=== PATIENT | female | born 1955 | race Caucasian/White ===

== ENCOUNTER 2019-09-18 03:52 | Emergency (ER) | payer BC, OTHER ==
--- NOTE | 2019-09-18 04:37 | EDPHYS ---
Physician Documentation [facility] Name: Jade Pride Age: 64 yrs Sex: Female : 1955 Arrival Date: 09/18/2019 Time: 03:55 Bed 7 Private MD: ED Physician Jermaine Chavarria HPI: 09/18 05:41 This 64 yrs old Female presents to ER via Ambulatory with complaints of Back kdr Pain. 05:41 The patient presents with pain that is chronic. The symptoms are located in the Left kdr infrascapular region. Onset: The symptoms/episode began/occurred gradually, 6 month(s) ago. The pain does not radiate. Associated signs and symptoms: Pertinent positives: nausea, Pertinent negatives: abdominal pain, chest pain, constipation, dysuria, fever, headache, hematuria, incontinence, numbness, tingling, urinary retention, vomiting, weakness. The problem was sustained from unknown cause. Modifying factors: The patient symptoms are alleviated by nothing, the patient symptoms are aggravated by coughing. Severity of symptoms: At their worst the symptoms were mild, moderate, in the emergency department the symptoms have improved, mildly. The patient has not experienced similar symptoms in the past. The patient has been recently seen by a physician: The patient had a CT last month for the same problem with Rasta Sandoval (reviewed and copy given to the patient). Historical: - Allergies: 04:09 Tetracycline (Blisters in Mouth); aa1 - Home Meds: 04:09 None [Active]; aa1 - PMHx: 04:09 None; aa1 - PSHx: 04:09 Tubal ligation; aa1 - Immunization history:: Flu vaccine is up to date. - Coronavirus screen:: The patient has NOT traveled to [place], [place], or [place] in the past 14 days. Proceed with normal triage process as indicated. - Social history:: Smoking status: Patient/guardian denies using tobacco, but has a distant history of tobacco abuse. - Ebola Screening: : No symptoms or risks identified at this time. ROS: 05:57 Constitutional: Negative for fever, chills, and weight loss, Eyes: Negative for injury, kdr pain, redness, and discharge, Neck: Negative for injury, pain, and swelling, Cardiovascular: Negative for chest pain, palpitations, and edema, Respiratory: Negative for shortness of breath, cough, wheezing, and pleuritic chest pain, Abdomen/GI: Negative for abdominal pain, nausea, vomiting, diarrhea, and constipation, : Negative for injury, bleeding, discharge, and swelling, MS/Extremity: Negative for injury and deformity, Skin: Negative for injury, rash, and discoloration, Neuro: Negative for headache, weakness, numbness, tingling, and seizure activity. Psych: Negative for depression, anxiety, suicide ideation, homicidal ideation, and hallucinations, Allergy/Immunology: Negative for hives, rash, and allergies, Endocrine: Negative for neck swelling, polydipsia, polyuria, polyphagia, and marked weight changes, Hematologic/Lymphatic: Negative for swollen nodes, abnormal bleeding, and unusual bruising. 05:57 Back: Positive for pain at rest, pain with movement, Negative for injury or acute deformity. Exam: 05:57 Constitutional: This is a well developed, well nourished patient who is awake, alert, kdr and in no acute distress. Head/Face: Normocephalic, atraumatic. Eyes: Pupils equal round and reactive to light, extra-ocular motions intact. Lids and lashes normal. Conjunctiva and sclera are non-icteric and not injected. Cornea within normal limits. Periorbital areas with no swelling, redness, or edema. Neck: Trachea midline, no thyromegaly or masses palpated, and no cervical lymphadenopathy. Supple, full range of motion without nuchal rigidity, or vertebral point tenderness. No Meningismus. Chest/axilla: Normal chest wall appearance and motion. Nontender with no deformity. No lesions are appreciated. Cardiovascular: Regular rate and rhythm with a normal S1 and S2. No gallops, murmurs, or rubs. Normal PMI, no JVD. No pulse deficits. Respiratory: Lungs have equal breath sounds bilaterally, clear to auscultation and percussion. No rales, rhonchi or wheezes noted. No increased work of breathing, no retractions or nasal flaring. Abdomen/GI: Soft, non-tender, with normal bowel sounds. No distension or tympany. No guarding or rebound. No evidence of tenderness throughout. Skin: Warm, dry with normal turgor. Normal color with no rashes, no lesions, and no evidence of cellulitis. MS/ Extremity: Pulses equal, no cyanosis. Neurovascular intact. Full, normal range of motion. Neuro: Awake and alert, GCS 15, oriented to person, place, time, and situation. Cranial nerves II-XII grossly intact. Motor strength 5/5 in all extremities. Sensory grossly intact. Cerebellar exam normal. Normal gait. Psych: Awake, alert, with orientation to person, place and time. Behavior, mood, and affect are within normal limits. 05:57 Back: pain, that is mild, of the left subscapular area, normal spinal alignment noted, CVA tenderness, is absent, vertebral tenderness, is not appreciated. Vital Signs: 04:09 BP 175 / 77; Pulse 61; Resp 16; Temp 98.8; Pulse Ox 99% on R/A; Weight 108.86 kg; aa1 Height 5 ft. 5 in. (165.10 cm); Pain 9/10; 05:02 BP 146 / 97; Pulse 63; Resp 16; Pulse Ox 98% on R/A; Pain 7/10; aa1 04:09 Body Mass Index 39.94 (108.86 kg, 165.10 cm) aa1 MDM: 04:36 Patient medically screened. kdr 05:57 Data reviewed: vital signs, nurses notes, old medical records, radiologic studies. kdr Counseling: I had a detailed discussion with the patient and/or guardian regarding: the historical points, exam findings, and any diagnostic results supporting the discharge/admit diagnosis, lab results, the need for outpatient follow up. 09/18 04:23 Order name: EKG; Complete Time: 04:24 aa09/18 04:23 Order name: EKG - Nurse/Tech; Complete Time: 04:23 aa1 EC:01 Rate is 59 beats/min. Rhythm is regular, Sinus bradycardia with No ectopy. QRS Almo is kdr Normal. ND interval is normal. QRS interval is normal. Clinical impression: NSR w/ Non-specific ST/T Changes. Administered Medications: 04:55 Drug: Tylenol-Codeine #3 (300 mg - 30 mg) 2 tabs Route: PO; aa1 05:01 Follow up: Response: Medication administered at discharge. aa1 04:55 Drug: Robaxin 750 mg Route: PO; aa1 05:01 Follow up: Response: Medication administered at discharge. aa1 04:55 Drug: Robaxin 750 mg Route: PO; aa1 Disposition: 09/18/19 04:36 Discharged to Home. Impression: Posterior, infrascapular thorax pain. - Condition is Stable. - Discharge Instructions: Back Pain, Adult, [id number]. - Prescriptions for Robaxin 500 mg Oral Tablet - take 2 tablet by ORAL route every 6 hours As needed; 40 tablet. Tramadol 50 mg Oral Tablet - take 1 tablet by ORAL route every 8 hours as needed; 12 tablet. Medrol (Jarrell) 4 mg Oral Tablets, Dose Pack - take 1 tablet by ORAL route as directed - follow package instructions; 1 packet. - Medication Reconciliation Form, Thank You Letter, Prescription Opioid Use form. - Follow up: Private Physician; When: 2 - 3 days; Reason: If symptoms return, Further diagnostic work-up, Recheck today's complaints, Continuance of care, Re-evaluation by your physician. - Problem is an ongoing problem. - Symptoms are unchanged. Signatures: Conchis Hughes RN RN aa1 Jermaine Chavarria MD MD [facility] Corrections: (The following items were deleted from the chart) 05:03 04:36 09/18/2019 04:36 Discharged to Home. Impression: Posterior, infrascapular thorax aa1 pain. Condition is Stable. Forms are Medication Reconciliation Form, Thank You Letter, Antibiotic Education, Prescription Opioid Use. Follow up: Private Physician; When: 2 - 3 days; Reason: If symptoms return, Further diagnostic work-up, Recheck today's complaints, Continuance of care, Re-evaluation by your physician. Problem is an ongoing problem. Symptoms are unchanged. kdr
--- NOTE | 2019-09-18 04:37 | ER ---
Nurse's Notes [facility] Name: Jade Pride Age: 64 yrs Sex: Female : 1955 Arrival Date: 09/18/2019 Time: 03:55 Bed 7 Private MD: Diagnosis: Posterior, infrascapular thorax pain Presentation: 09/18 04:06 Presenting complaint: Patient states: she has been having mid back pain continuously aa1 for the past 6 months and over the past few weeks it has gotten worse and it has been causing her to have trouble sleeping. States she was concerned because she went to a friend's house a couple days ago and he told her that he was having back pain in the same place that she is and he ended up having bypass surgery. Reports she had an MRI done for her back pain last month and she was told everything was normal. Transition of care: patient was not received from another setting of care. Onset of symptoms was February 2019. Risk Assessment: Do you want to hurt yourself or someone else? Patient reports no desire to harm self or others. Initial Sepsis Screen: Does the patient meet any 2 criteria? No. Patient's initial sepsis screen is negative. Does the patient have a suspected source of infection? No. Patient's initial sepsis screen is negative. Care prior to arrival: None. 04:06 Method Of Arrival: Ambulatory aa1 04:06 Acuity: DANIEL 3 aa1 Historical: - Allergies: 04:09 Tetracycline (Blisters in Mouth); aa1 - Home Meds: 04:09 None [Active]; aa1 - PMHx: 04:09 None; aa1 - PSHx: 04:09 Tubal ligation; aa1 - Immunization history:: Flu vaccine is up to date. - Coronavirus screen:: The patient has NOT traveled to [place], [place], or [place] in the past 14 days. Proceed with normal triage process as indicated. - Social history:: Smoking status: Patient/guardian denies using tobacco, but has a distant history of tobacco abuse. - Ebola Screening: : No symptoms or risks identified at this time. Screenin:10 Abuse screen: Denies threats or abuse. Denies injuries from another. Nutritional aa1 screening: No deficits noted. Tuberculosis screening: No symptoms or risk factors identified. Fall Risk None identified. Assessment: 04:10 General: Appears in no apparent distress. comfortable, Behavior is calm, cooperative, aa1 appropriate for age. Pain: Complains of pain in left mid back Pain does not radiate. Pain currently is 9 out of 10 on a pain scale. Pain began 6 months ago Is continuous. Neuro: Level of Consciousness is awake, alert, obeys commands, Oriented to person, place, time, situation, Moves all extremities. Full function Gait is steady. Cardiovascular: Denies chest pain, diaphoresis, nausea, palpitations, shortness of breath. Respiratory: Airway is patent Respiratory effort is even, unlabored, Respiratory pattern is regular, symmetrical. GI: No signs and/or symptoms were reported involving the gastrointestinal system. : No signs and/or symptoms were reported regarding the genitourinary system. EENT: No signs and/or symptoms were reported regarding the EENT system. Derm: Skin is intact, is healthy with good turgor, Skin is pink, warm \T\ dry. Musculoskeletal: Circulation, motion, and sensation intact. Capillary refill < 3 seconds, Range of motion: intact in all extremities. 05:02 Reassessment: Patient appears in no apparent distress at this time. Patient is alert, aa1 oriented x 3, equal unlabored respirations, skin warm/dry/pink. Discussed d/c \T\ f/u instructions with pt \T\ spouse; denies questions or concerns at this time. Ambulatory to lobby with steady gait. Vital Signs: 04:09 BP 175 / 77; Pulse 61; Resp 16; Temp 98.8; Pulse Ox 99% on R/A; Weight 108.86 kg; aa1 Height 5 ft. 5 in. (165.10 cm); Pain 9/10; 05:02 BP 146 / 97; Pulse 63; Resp 16; Pulse Ox 98% on R/A; Pain 7/10; aa1 04:09 Body Mass Index 39.94 (108.86 kg, 165.10 cm) aa1 ED Course: 03:55 Patient arrived in ED. cl3 04:01 Jermaine Chavarria MD is Attending Physician. kdr 04:06 Conchis Hughes RN is Primary Nurse. aa1 04:09 Triage completed. aa1 04:09 Arm band placed on right wrist. aa1 04:10 Patient has correct armband on for positive identification. Bed in low position. Call aa1 light in reach. Pulse ox on. NIBP on. 04:20 EKG done, by ED staff, reviewed by Jermaine Chavarria MD. aa1 05:02 No provider procedures requiring assistance completed. Patient did not have IV access aa1 during this emergency room visit. Administered Medications: 04:55 Drug: Tylenol-Codeine #3 (300 mg - 30 mg) 2 tabs Route: PO; aa1 05:01 Follow up: Response: Medication administered at discharge. aa1 04:55 Drug: Robaxin 750 mg Route: PO; aa1 05:01 Follow up: Response: Medication administered at discharge. aa1 04:55 Drug: Robaxin 750 mg Route: PO; aa1 Outcome: 04:36 Discharge ordered by . kdr 05:02 Discharged to home ambulatory, with significant other. aa1 05:02 Condition: good 05:02 Discharge instructions given to patient, significant other, Instructed on discharge instructions, follow up and referral plans. medication usage, Demonstrated understanding of instructions, follow-up care, medications, Prescriptions given X 3. 05:03 Patient left the ED. aa1 Signatures: Conchis Hughes, RN RN aa1 Jermaine Chavarria MD MD kdr Miguel Robertson cl3
[2019-09-18 05:11] VITALS: TEMP 98.8
[2019-09-18 05:12] VITALS: BP 146/97; O2SAT 98
--- NOTE | 2019-09-19 07:50 | EKG ---
Test Date: 2019-09-18 Test Time: 04:22:24 Cloth Mercerizer Back Tender: JOSSELIN MEASUREMENT RESULTS: Intervals: Rate: 59 FL: 142 QRSD: 78 QT: 440 QTc: 435 Eckerman: P: 37 FL: 142 QRS: 12 T: 22 INTERPRETIVE STATEMENTS: Sinus bradycardia Otherwise normal ECG Compared to ECG 10/20/2016 05:27:06 No significant changes Electronically Signed On 09-19-19 07:49:42 THEOLOGY PROFESSOR by Sinan Tovar
== END 2019-09-18 05:03 | disposition home or self-care (01) ==
LOC: ER 03:52
DX: M54.6 Pain in thoracic spine (principal); Z88.3 Allergy status to other anti-infective agents
CPT/HCPCS: 93005; 99284

== ENCOUNTER 2019-12-29 22:31 | Emergency (ER) | payer BC ==
[2019-12-30 00:35] LABS: Urine Blood 3+ (NEG); Urine Glucose NEGATIVE (NEG); Urine Protein 2+ (NEG); Urine Specific Gravity >1.030 (1.005-1.030)
[2019-12-30 00:43] LABS: Urine Bacteria <20 /HPF (<20); Urine RBC >50 /HPF (NONE SEEN)
[2019-12-30 00:44] LABS: Urine Culture Reflex Order NOT NEEDED
[2019-12-30 01:30] LABS: Hematocrit 45.8 % (36.0-45.0); Lymphocytes % 9.6 % (15.3-44.8); MPV 7.8 fL (7.6-11.3); RBC Red Blood Cell Count 5.14 M/uL (3.86-4.86)
[2019-12-30 01:50] LABS: Albumin 3.8 g/dL (3.4-5.0); Bilirubin Direct 0.1 mg/dL (0-0.2); Bilirubin Total 0.5 mg/dL (0.2-1.0); Protein, Total 7.6 g/dL (6.4-8.2)
--- NOTE | 2019-12-30 05:27 | EDPHYS ---
Physician Documentation [facility] Name: Jade Pride Age: 64 yrs Sex: Female : 1955 Arrival Date: 12/29/2019 Time: 22:33 Bed 17 Private MD: ED Physician Alexys Aguilera HPI: 12/29 02:58 This 64 yrs old Female presents to ER via Ambulatory with complaints of mh7 Abdominal Pain,. Historical: - Allergies: 12/28 23:02 Tetracycline (Blisters in Mouth); ao - Home Meds: 23:02 aspirin 325 mg Oral tab 1 tab as needed for Pain [Active]; ao - PMHx: 23:02 Back pain; ao - PSHx: 23:02 Tubal ligation; ao - Immunization history:: Adult Immunizations up to date. - Social history:: Smoking status: Patient denies any tobacco usage or history of. Patient/guardian denies using alcohol, street drugs. ROS: 12/29 02:59 Constitutional: Negative for fever, chills, and weight loss, Eyes: Negative for injury, mh7 pain, redness, and discharge, ENT: Negative for injury, pain, and discharge, Neck: Negative for injury, pain, and swelling, Cardiovascular: Negative for chest pain, palpitations, and edema, Respiratory: Negative for shortness of breath, cough, wheezing, and pleuritic chest pain. : Negative for injury, bleeding, discharge, and swelling, MS/Extremity: Negative for injury and deformity, Skin: Negative for injury, rash, and discoloration, Neuro: Negative for headache, weakness, numbness, tingling, and seizure, Psych: Negative for depression, anxiety, suicide ideation, homicidal ideation, and hallucinations, Allergy/Immunology: Negative for hives, rash, and allergies, Endocrine: Negative for neck swelling, polydipsia, polyuria, polyphagia, and marked weight changes, Hematologic/Lymphatic: Negative for swollen nodes, abnormal bleeding, and unusual bruising. Exam: 02:59 Constitutional: This is a well developed, well nourished patient who is awake, alert, mh7 and in no acute distress. Head/Face: Normocephalic, atraumatic. Eyes: Pupils equal round and reactive to light, extra-ocular motions intact. Lids and lashes normal. Conjunctiva and sclera are non-icteric and not injected. Cornea within normal limits. Periorbital areas with no swelling, redness, or edema. ENT: Nares patent. No nasal discharge, no septal abnormalities noted. Tympanic membranes are normal and external auditory canals are clear. Oropharynx with no redness, swelling, or masses, exudates, or evidence of obstruction, uvula midline. Mucous membranes moist. Neck: Trachea midline, no thyromegaly or masses palpated, and no cervical lymphadenopathy. Supple, full range of motion without nuchal rigidity, or vertebral point tenderness. No Meningismus. Chest/axilla: Normal chest wall appearance and motion. Nontender with no deformity. No lesions are appreciated. Cardiovascular: Regular rate and rhythm with a normal S1 and S2. No gallops, murmurs, or rubs. Normal PMI, no JVD. No pulse deficits. Respiratory: Lungs have equal breath sounds bilaterally, clear to auscultation and percussion. No rales, rhonchi or wheezes noted. No increased work of breathing, no retractions or nasal flaring. 02:59 Skin: Warm, dry with normal turgor. Normal color with no rashes, no lesions, and no evidence of cellulitis. MS/ Extremity: Pulses equal, no cyanosis. Neurovascular intact. Full, normal range of motion. Neuro: Awake and alert, GCS 15, oriented to person, place, time, and situation. Cranial nerves II-XII grossly intact. Motor strength 5/5 in all extremities. Sensory grossly intact. Cerebellar exam normal. Normal gait. Psych: Awake, alert, with orientation to person, place and time. Behavior, mood, and affect are within normal limits. 02:59 Abdomen/GI: Inspection: abdomen appears normal, Bowel sounds: normal, in all quadrants, Palpation: moderate abdominal tenderness, in the epigastric area, right upper quadrant and left upper quadrant, Rectal exam: the exam is deferred, because of patient request, Indicators: McBurney's point is not tender, Benton's sign is negative, Rovsing's sign is negative, Obturator sign is negative, Psoas sign is negative, Liver: no appreciated palpable abnormalities, Hernia: not appreciated. 02:59 Back: pain, that is mild, ROM is normal, normal spinal alignment noted, CVA tenderness, is absent, vertebral tenderness, is not appreciated, muscle spasm, is not present, Straight leg raises: right lower extremity does not illicit pain, left lower extremity does not illicit pain. 06:54 ECG was reviewed by the Attending Physician. [facility] Vital Signs: 12/28 22:57 BP 153 / 94; Pulse 67; Resp 18; Temp 98.5(O); Pulse Ox 100% on R/A; Weight 154.22 kg; ao Height 5 ft. 5 in. (165.10 cm); Pain 05/27; 12/29 02:00 BP 137 / 84; Pulse 78; Resp 16; Pulse Ox 98% on R/A; jb4 02:57 BP 152 / 74; Pulse 65; Resp 16; Pulse Ox 100% on R/A; jb4 03:50 BP 135 / 76; Pulse 67; Resp 16; Pulse Ox 100% on R/A; jb4 04:45 BP 137 / 64; Pulse 71; Resp 16; Pulse Ox 98% on R/A; jb4 12/28 22:57 Body Mass Index 56.58 (154.22 kg, 165.10 cm) ao MDM: 00:37 Patient medically screened. [facility] 05:22 Differential diagnosis: bowel obstruction, cholecystitis, Cholelithiasis, [facility] diverticulitis, non-specific abd pain, pancreatitis, Peptic Ulcer Disease, Ureterolithiasis, urinary tract infection. Data reviewed: vital signs, nurses notes, lab test result(s), EKG, radiologic studies, CT scan. Data interpreted: Pulse oximetry: on room air is 98 %. Interpretation: normal. 06:54 Counseling: I had a detailed discussion with the patient and/or guardian regarding: the [facility] historical points, exam findings, and any diagnostic results supporting the discharge/admit diagnosis, lab results, radiology results, the need for outpatient follow up. 06:54 Response to treatment: the patient's symptoms have resolved after treatment, the [facility] patient's blood pressure is in an acceptable range, mental status has returned to baseline, the patient no longer shows bradycardia, the patient is not short of breath, the patient is not tachycardic, the patient's pain is gone, the patient's temperature has normalized. Special discussion: Based on the patient's Hx, exam, and Dx evaluation, there is no indication for emergent surgery or inpatient Tx. It is understood by the patient/guardian that if the Sx's persist or worsen they need to return immediately for re-evaluation. ED course: Feels better, NAD, VSS, no focal neurological deficits. Discussed all test results and findings with the patient and answered all of her questions. She will follow up with her PCP in the next 1-2 days. Explained to return to the ED if worsening of symptoms or other concerns.. 12/28 22:58 Order name: Urine Culture [facility] 12/28 22:58 Order name: Urine Microscopic Only [facility] 12/29 00:17 Order name: Urine Dipstick--Ancillary (enter results) [facility] 12/29 00:53 Order name: Basic Metabolic Panel [facility] 12/29 00:53 Order name: CBC with Diff [facility] 12/29 00:53 Order name: Hepatic Function [facility] 12/28 22:58 Order name: Urine Dipstick-Ancillary (obtain specimen); Complete Time: 00:32 [facility] 12/29 00:53 Order name: Lipase [facility] 12/29 00:53 Order name: IV Saline Lock; Complete Time: 02:02 [facility] 12/29 00:53 Order name: Labs collected and sent; Complete Time: 02:02 [facility] 12/29 00:53 Order name: EKG - Nurse/Tech; Complete Time: 02:00 [facility] 12/29 00:53 Order name: CT Abd/Pelvis - IV Contrast Only [facility] EC:54 Rate is 69 beats/min. Rhythm is regular. QRS Xenia is Normal. TX interval is normal. QRS 7 interval is normal. QT interval is normal. No Q waves. T waves are Normal. No ST changes noted. Clinical impression: Normal ECG. Administered Medications: No medications were administered Disposition: 06:54 Co-signature as Attending Physician, Alexys Aguilera MD. [facility] Disposition: 12/30/19 05:25 Discharged to Home. Impression: Upper abdominal pain, unspecified, Malignant neoplasm of right kidney, except renal pelvis. - Condition is Stable. - Discharge Instructions: Abdominal Pain, Adult, Renal Mass. - Medication Reconciliation Form, Thank You Letter, Antibiotic Education, Prescription Opioid Use form. - Follow up: Private Physician; When: 1 - 2 days; Reason: Worsening of condition, Further diagnostic work-up, Re-evaluation by your physician. - Problem is an acute exacerbation. - Symptoms have improved. Signatures: Dispatcher [employer] EDDanielle Valiente, SPEECH AND LANGUAGE SPECIALIST-C SPEECH AND LANGUAGE SPECIALIST-Csnw Ambrocio Matthew, RN RN Simone Francois RN RN jb4 Alexys Aguilera MD MD mh7 Corrections: (The following items were deleted from the chart) 05:59 05:25 12/30/2019 05:25 Discharged to Home. Impression: Upper abdominal pain, jb4 unspecified; Malignant neoplasm of right kidney, except renal pelvis. Condition is Stable. Forms are Medication Reconciliation Form, Thank You Letter, Antibiotic Education, Prescription Opioid Use. Follow up: Private Physician; When: 1 - 2 days; Reason: Worsening of condition, Further diagnostic work-up, Re-evaluation by your physician. Problem is an acute exacerbation. Symptoms have improved. mh7
--- NOTE | 2019-12-30 05:27 | ER ---
Nurse's Notes [facility] Name: Jade Pride Age: 64 yrs Sex: Female : 1955 Arrival Date: 12/29/2019 Time: 22:33 Bed 17 Private MD: Diagnosis: Upper abdominal pain, unspecified;Malignant neoplasm of right kidney, except renal pelvis Presentation: 12/28 22:57 Chief complaint: Patient states: Abdominal pain that started about 1730. Pt was eating ao pizza and then the pain started. Pt also c/o of back pain that has for few moths. Coronavirus screen: Proceed with normal triage. Ebola Screen: Patient negative for fever greater than or equal to 101.5 degrees Fahrenheit, and additional compatible Ebola Virus Disease symptoms Patient denies exposure to infectious person. Patient denies travel to an Ebola-affected area in the 21 days before illness onset. Initial Sepsis Screen: Does the patient meet any 2 criteria? No. Patient's initial sepsis screen is negative. Does the patient have a suspected source of infection? No. Patient's initial sepsis screen is negative. Risk Assessment: Do you want to hurt yourself or someone else? Patient reports no desire to harm self or others. Onset of symptoms is unknown. 22:57 Method Of Arrival: Ambulatory ao 22:57 Acuity: DANIEL 3 ao Historical: - Allergies: 23:02 Tetracycline (Blisters in Mouth); ao - Home Meds: 23:02 aspirin 325 mg Oral tab 1 tab as needed for Pain [Active]; ao - PMHx: 23:02 Back pain; ao - PSHx: 23:02 Tubal ligation; ao - Immunization history:: Adult Immunizations up to date. - Social history:: Smoking status: Patient denies any tobacco usage or history of. Patient/guardian denies using alcohol, street drugs. Screenin/14 00:30 Abuse screen: Denies threats or abuse. Nutritional screening: No deficits noted. jb4 Tuberculosis screening: No symptoms or risk factors identified. Fall Risk None identified. Assessment: 00:30 General: Appears in no apparent distress. uncomfortable, Behavior is calm, cooperative, jb4 appropriate for age. Pain: Complains of pain in back and abdomen Pain does not radiate. Pain currently is 7 out of 10 on a pain scale. Neuro: Level of Consciousness is awake, alert, obeys commands, Oriented to person, place, time, situation. Cardiovascular: Patient's skin is warm and dry. Respiratory: Airway is patent Respiratory effort is even, unlabored, Respiratory pattern is regular, symmetrical. GI: Abdomen is round non-distended, Bowel sounds present X 4 quads. Abd is soft and non tender X 4 quads. : No signs and/or symptoms were reported regarding the genitourinary system. EENT: No signs and/or symptoms were reported regarding the EENT system. Derm: Skin is intact, Skin is pink, warm \T\ dry. Musculoskeletal: Circulation, motion, and sensation intact. Range of motion: intact in all extremities. 02:00 Reassessment: Patient appears in no apparent distress at this time. Patient and/or jb4 family updated on plan of care and expected duration. Pain level reassessed. Patient is alert, oriented x 3, equal unlabored respirations, skin warm/dry/pink. Pt to CT. 02:57 Reassessment: Patient appears in no apparent distress at this time. Patient and/or jb4 family updated on plan of care and expected duration. Pain level reassessed. Patient is alert, oriented x 3, equal unlabored respirations, skin warm/dry/pink. 04:00 Reassessment: Patient appears in no apparent distress at this time. No changes from jb4 previously documented assessment. Patient and/or family updated on plan of care and expected duration. Pain level reassessed. 05:00 Reassessment: Patient appears in no apparent distress at this time. Patient and/or jb4 family updated on plan of care and expected duration. Pain level reassessed. Patient is alert, oriented x 3, equal unlabored respirations, skin warm/dry/pink. 05:56 Reassessment: Patient appears in no apparent distress at this time. Patient and/or jb4 family updated on plan of care and expected duration. Pain level reassessed. Patient is alert, oriented x 3, equal unlabored respirations, skin warm/dry/pink. Pt and family verbalized understanding of D/c and follow up instructions. Denies questions or concerns. Ambulated out of ED with steady gait. Vital Signs: 12/28 22:57 BP 153 / 94; Pulse 67; Resp 18; Temp 98.5(O); Pulse Ox 100% on R/A; Weight 154.22 kg; ao Height 5 ft. 5 in. (165.10 cm); Pain 10/10; 12/29 02:00 BP 137 / 84; Pulse 78; Resp 16; Pulse Ox 98% on R/A; jb4 02:57 BP 152 / 74; Pulse 65; Resp 16; Pulse Ox 100% on R/A; jb4 03:50 BP 135 / 76; Pulse 67; Resp 16; Pulse Ox 100% on R/A; jb4 04:45 BP 137 / 64; Pulse 71; Resp 16; Pulse Ox 98% on R/A; jb4 12/28 22:57 Body Mass Index 56.58 (154.22 kg, 165.10 cm) ao ED Course: 12/28 22:33 Patient arrived in ED. cl3 23:00 Triage completed. ao 23:02 Arm band placed on right wrist. Patient placed in waiting room, on a stretcher, Patient ao notified of wait time. 12/29 00:30 Patient has correct armband on for positive identification. Placed in gown. Bed in low jb4 position. Call light in reach. Side rails up X 1. Pulse ox on. NIBP on. 00:32 Simone Candelario, RICKY is Primary Nurse. jb4 00:35 Alexys Aguilera MD is Attending Physician. [facility] 01:20 Initial lab(s) drawn, by la, sent to lab. EKG done. Inserted saline lock: 20 gauge in jb4 right forearm, using aseptic technique. Blood collected. 02:52 CT Abd/Pelvis - IV Contrast Only In Process Unspecified. EDMS 05:56 No provider procedures requiring assistance completed. IV discontinued, intact, jb4 bleeding controlled, No redness/swelling at site. Pressure dressing applied. Administered Medications: No medications were administered Outcome: 05:25 Discharge ordered by . [facility] 05:56 Discharged to home ambulatory, with family. [facility] 05:56 Condition: stable 05:56 Discharge instructions given to patient, family, Instructed on discharge instructions, follow up and referral plans. Demonstrated understanding of instructions, follow-up care. 05:59 Patient left the ED. jb4 Addendum: 01/02/2020 08:05 Addendum: Culture Results: Positive urine culture. Patient was not prescribed a a5 antibiotics at discharge. Report given to OBI for further evaluation and then to lopper for follow up with patient. Phone call Attempt #1 left voicemail. 10:09 Addendum: Culture Results: Prescription called-in to pharmacy of choice. [facility] [place], [place]. Called-in Macrobid 100mg PO BID x 10 days per Danielle Yusuf NP. Signatures: Dispatcher [employer] EDMS Mya Cruz RN RN [id number] Ambrocio Matthew RN Simone Kasper RN RN [id number] Miguel Robertson cl3 Alexys Aguilera MD MD [id number]
[2019-12-30 06:27] VITALS: TEMP 98.5
[2019-12-30 06:32] VITALS: BP 137/64; O2SAT 98
--- NOTE | 2019-12-30 11:15 | EKG ---
Test Date: 2019-12-30 Test Time: 01:10:47 Biometrics Analyst: ALLA MEASUREMENT RESULTS: Intervals: Rate: 69 OH: 120 QRSD: 78 QT: 434 QTc: 465 [place]: P: 18 OH: 120 QRS: 34 T: 30 INTERPRETIVE STATEMENTS: Sinus rhythm with occasional premature ventricular complexes Otherwise normal ECG Compared to ECG 09/18/2019 04:22:24 Ventricular premature complex(es) now present Sinus bradycardia no longer present Electronically Signed On 12-30-19 11:13:30 CDT by Sinan Tovar
--- NOTE | 2019-12-30 11:53 | RAD REPORT ---
EXAM DESCRIPTION: Abdomen Pelvis W Contrast CLINICAL HISTORY: ABD PAIN COMPARISON: None. TECHNIQUE: CT ABDOMEN PELVIS WITH IV CONTRAST on 12/30/2019 12:53 AM CDT This exam was performed according to our departmental dose-optimization program, which includes autom ated exposure control, adjustment of the mA and/or kV according to patient size and/or use of iterati ve reconstruction technique. FINDINGS: Lower lungs are clear. Abdomen: Liver is fatty in attenuation. There is no biliary dilatation. There is a small hiatal herni a. The pancreas and spleen are normal in appearance. Adrenal glands and left kidney are normal. There is an enhancing mass within the medial midpole of the right kidney measuring 4.6 x 4.6 cm. Abdominal aorta is normal in course and caliber without aneurysm. There is no free air. There is no r etroperitoneal adenopathy. Pelvis: There is no bowel obstruction. Urinary bladder is unremarkable. There is no free fluid. Uteru s is normal in size. Appendix is normal. Skeleton: There are no acute osseous findings. No suspicious bony lesions. IMPRESSION: Highly suspicious right renal mass representing a renal cell carcinoma until proven othe rwise. No definite acute inflammatory process otherwise. Electronically signed by: Charlie Alan MD 12/30/2019 2:49 AM CDT Due to temporary technical issues with the PACS/Fluency reporting system, reports are being signed by the in house radiologist as a courtesy to ensure prompt reporting. The interpreting radiologist is f ully responsible for the content of the report.
== END 2019-12-30 05:59 | disposition home or self-care (01) ==
LOC: ER 22:31
DX: C64.1 Malignant neoplasm of right kidney, except renal pelvis (principal); Z79.82 Long term (current) use of aspirin; Z88.1 Allergy status to other antibiotic agents
CPT/HCPCS: 93005; 87088; 85025; 87086; 80048; 36415; 80076; 87077; 87186; 83690; 74177; 99284; Q9967; 81003; 81015

== ENCOUNTER 2020-04-27 04:23 | Observation (INO) | payer BC ==
--- OUTSIDE RECORDS SUMMARY | 2020-04-27 04:25 | XMS REPORT | Clinical Summary ---
:1955 Author Organization [facility] Address [address] [place] [address] Care Team Providers Name Role Phone Moncho Magdaleno MD Primary Care Provider Allergies Active Allergy Reactions Severity Noted Date Comments Shrimp Anaphylaxis High 01/27/2020 Medications Medication Sig Dispensed Refills Start Date End Date Status traMADoL (ULTRAM) 50 Take 50 mg by 0 02/06 Discontinued mg tablet mouth every 6 0 (six) hours as needed for Pain. nitrofurantoin, Take 1 6 capsule 0 01/28/2020 Exp ired macrocrystal-monohydr capsule (100 0 ate, (MACROBID) 100 mg total) by MG capsule mouth 2 (two) times daily for 3 days. tamsulosin (FLOMAX) Take 1 7 capsule 0 01/28/2020 0.4 mg Cap 24 hr capsule (0.4 0 capsule mg total) by mouth daily for 7 days. phenazopyridine Take 1 tablet 10 tablet 0 01/28/2020 (PYRIDIUM) 200 MG (200 mg 0 tablet total) by mouth 3 (three) times daily as needed for up to 3 days. ondansetron (ZOFRAN) Take 1 tablet 30 tablet 0 01/29/202001/17 4 MG tablet (4 mg total) 0 by mouth 2 (two) times daily as needed for Nausea for up to 7 days. acetaminophen Take 650 mg 0 Disc ontinued (TYLENOL) 325 MG by mouth 0 tablet every 6 (six) hours as needed for Pain. traMADoL (ULTRAM) 50 Take 50 mg by 0 02/08 Discontinued mg tablet mouth every 6 0 (six) hours as needed for Pain. docusate sodium Take 1 20 capsule 0 02/09/2020 Ex pired (COLACE) 100 MG capsule (100 0 capsule mg total) by mouth 2 (two) times daily for 10 days. acetaminophen-codeine Take 1 tablet 20 tablet 0 02/09/2020 (TYLENOL-CODEINE #3) by mouth 0 300-30 mg per tablet every 4 (four) hours as needed for Pain for up to 5 days. Max Daily Amount: 6 tablets Active Problems Problem Noted Date Right renal mass 02/08/2020 Nausea & vomiting 01/29/2020 Vomiting 01/29/2020 Renal mass 01/28/2020 Encounters Date Type Specialty Care Team Description 03/21/2020 Hospital Encounter Computed May Mccallum Malignant neoplasm of Tomography MD Paulo right kidney [facility] 03/21/2020 Hospital Encounter Computed May Mccallum Malignant neoplasm of Tomography MD Paulo right [facility] ([facility] 03/14/2020 Outside Orders Central Scheduling May Mccallum Maligna nt neoplasm of MD Paulo right kidney (H CC) (Primary Dx) 02/08/2020 Surgery Colten Sorto LAPAROSCOPY,NE PHRECTOM MD Timothy Y 02/08/2020 Anesthesia Event Elissa Nolasco, ENEDELIA 02/08/2020 - Hospital Encounter General Internal Colten Sorto 02/09/2020 Medicine MD Timothy 02/07/2020 Hospital Encounter Pre-Admission Testing 02/04/2020 Hospital Encounter Colten Sorto MD 02/04/2020 Hospital Encounter Pre-Admission Colten Sorto Renal m ass, right; Testing MD Timothy Pre-op testing 02/04/2020 Outside Orders Central Scheduling Colten Sorto Renal mass, right MD Timothy (Primary Dx) 02/03/2020 Orders Only Urology Colten Sorto Pre-op testing MD Timothy (Primary Dx) 01/29/2020 Emergency Cardiology Thestrup, Mir, Abdominal pa in, unspecified abdominal location (Primary Dx); Nausea and vomiting, intractability of v omiting not specified, unspecified vomiting type Matthew Ho MD 01/28/2020 Anesthesia Event Nasrallah, Stew, MD 01/28/2020 Surgery Joseph Jeronimo CYSTOSCOPY,URET EROSCOP MD Romero Y 01/28/2020 Hospital Encounter Joseph Jeronimo MD 01/28/2020 Travel 01/27/2020 Hospital Encounter Pre-Admission Testing after 04/27/2019 Social History Tobacco Use Types Packs/Day Years Used Date Former Smoker 0.15 15 Quit: 1999 Smokeless Tobacco: Never Used Alcohol Use Drinks/Week oz/Week Comments No Alcohol Habits Answer Date Recorded How often do you have a drink containing alcohol? Never 01/27/2020 How many drinks containing alcohol do you have on a typical Not asked day when you are drinking? How often do you have six or more drinks on one occasion? No t asked Sex Assigned at Date Recorded Not on file Job Start Date Occupation Industry Not on file Not on file Not on file Travel History Travel Start Travel End No recent travel history available. Last Filed Vital Signs Vital Sign Reading Time Taken Blood Pressure 140/63 02/09/2020 12:53 PM CDT Pulse 77 02/09/2020 12:53 PM CDT Temperature 36.6 C (97.8 F) 02/09/2020 12:53 PM CDT Respiratory Rate 18 02/09/2020 12:53 PM CDT Oxygen Saturation 96% 02/09/2020 12:53 PM CDT Inhaled Oxygen Concentration - - Weight 104.1 kg (229 lb 9.6 oz) 02/08/2020 5:3 8 AM CDT Height 165.1 cm (5' 5") 02/08/2020 5:38 AM CDT Body Mass Index 38.21 02/08/2020 5:38 AM CDT Plan of Treatment Not on file Implants Implanted Type Area Trawl Net Maker Device Identifier Shelf Model / Expiration Serial / Date Lot Set Stent Injection 6x24cm [id number] - [id number] IMPLANTS Rig ht: [employer] [id number] 05/11/2021 [id number] / Implanted: Qty: 1 on 01/28/2020 by Joseph Jeronimo MD Ure ter SCI:ONCOLOGY / [id number] Procedures Procedure Name Priority Date/Time Associated Comments Diagnosis CT CHEST WITH IV Routine 03/21/2020 2:56 Malignant neoplasm R esults for this CONTRAST PM CDT of right kidney procedure ar e in (HCC) the results section. CT ABDOMEN/PELVIS Routine 03/21/2020 2:56 Malignant neoplasm Results for this WITH IV CONTRAST PM CDT of right kidney procedur e are in (HCC) the results section. POCT-CREATININE Routine 03/21/2020 2:31 Results for this PM CDT procedure are i n the results section. TRANSFUSION SERVICE 02/09/2020 6:00 REPORT - SCAN PM CDT CBC W/PLT COUNT & Routine 02/09/2020 3:42 Result s for this AUTO DIFFERENTIAL AM CDT procedure are in the results section. CBC W/PLT COUNT & Routine 02/09/2020 3:42 Result s for this AUTO DIFFERENTIAL AM CDT procedure are in the results section. BASIC METABOLIC PANEL Routine 02/09/2020 3:42 Re sults for this (7) AM CDT procedure are i n the results section. BASIC METABOLIC PANEL STAT 02/08/2020 5:32 Re sults for this (7) PM CDT procedure are i n the results section. CBC W/PLT COUNT & Routine 02/08/2020 1:21 Result s for this AUTO DIFFERENTIAL PM CDT procedure are in the results section. CBC W/PLT COUNT & Routine 02/08/2020 1:21 Result s for this AUTO DIFFERENTIAL PM CDT procedure are in the results section. TISSUE EXAM AP Routine 02/08/2020 12:04 Results for this PM CDT procedure are i n the results section. LAPAROSCOPY,NEPHRECTO 02/08/2020 7:15 Renal mass MY AM CDT Case Notes 3 HRS PER NAKITA Special Needs (5MM DEFLECTABLE LAPAROSCOPE , AIR SEAL) Checked by Noemí Valenzuela ABORH, MANUAL STAT 02/08/2020 6:02 AM Results for this CDT procedure are i n the results section. TYPE AND SCREEN, Routine 02/08/2020 5:52 AM Resu lts for this AUTOMATED CDT procedure are i n the results section. XR CHEST 2 VIEWS Routine 02/04/2020 11:08 AM Renal mass, right Results for this CDT procedure are i n the results section. SARS-COV2/RT-PCR ([facility] Routine 02/04/2020 10:52 AM Pre-op test ing Results for this & REF LABS) CDT procedure are i n the results section. RHYTHM STRIP - SCAN 02/02/2020 2:11 PM CDT US RENAL COMPLETE STAT 01/29/2020 10:54 AM Res ults for this CDT procedure are i n the results section. URINALYSIS W/ STAT 01/29/2020 5:46 AM Results for this MICROSCOPIC CDT procedure are i n the results section. CBC W/PLT COUNT & AUTO STAT 01/29/2020 2:04 AM Results for this DIFFERENTIAL CDT procedure are i n the results section. BASIC METABOLIC PANEL STAT 01/29/2020 2:04 AM Results for this (7) CDT procedure are i n the results section. CBC W/PLT COUNT & AUTO STAT 01/29/2020 2:04 AM Results for this DIFFERENTIAL CDT procedure are i n the results section. FL FLUORO NON-SPECIFIC Routine 01/28/2020 2:34 PM Results for this UP TO 1 HOUR CDT procedure are i n the results section. CYSTOSCOPY,INSERTION 01/28/2020 10:55 AM Kidney mass URETERAL STENTS CDT CYSTOSCOPY,URETEROSCOP 01/28/2020 10:55 AM Kidney mass Y CDT after 04/27/[address] Abdomen/Pelvis with IV Contrast (03/21/2020 2:56 PM CDT) Specimen Narrative Performed At FINAL REPORT [facility] TECHNIQUE: CT of the chest, abdomen, and pelvis WITH intravenous contrast and WITHOUT oral contrast. Dose modulation, iterative reconstruction, and/or weight-based adju stment of the mA/kV was utilized to reduce the radiation dose to as low as reasonably achievable. INDICATION: Malignant neoplasm of right kidney. COMPARISON: CT from 12/30/2019. FINDINGS: LINES/TUBES: None. LUNGS AND AIRWAYS: Trace bilateral air t rapping. A right upper lobe calcified granuloma on axial image 49 me asures 0.2 cm. A punctate calcified granuloma seen in the medial r ight upper lobe on axial image 30. Thyroid nodules as follow: *A right upper lobe pulmonary nodule on axial image 45 measures 0.3 cm. *A nodule along the left major fissure m easures 0.3 cm on axial image 46. This is most likely a fissural lymph node. PLEURA: The pleural spaces are clear. HEART AND MEDIASTINUM: A deep right thyr oid nodule measures 1.5 cm. No significant mediastinal, hilar, or ax illary lymphadenopathy. The heart and pericardium are within normal limits. HEPATOBILIARY: A cyst in segment II kelley ures 1.3 cm. A hypodensity in segment V is too small to characterize, measures 0.7 cm, and is unchanged. Gallbladder is unremarkable. No biliary ductal dilatation. SPLEEN: No splenomegaly. PANCREAS: No focal masses or ductal dila tation. ADRENALS: No adrenal nodules. KIDNEYS/URETERS: Prior right nephrectomy . There are postsurgical changes in the right nephrectomy bed inc luding a trace amount of fluid. No left hydronephrosis, stones, o r masses. PELVIC ORGANS/BLADDER: A left posterior uterine mass measures 3.2 cm and is most consistent with a subserosal leiomyoma. PERITONEUM/RETROPERITONEUM: Trace fluid in the right nephrectomy bed. No free air LYMPH NODES: No lymphadenopathy. VESSELS: Unremarkable. GI TRACT: No distention or wall thickeni ng. Mild diverticulosis of the sigmoid colon. Small, sliding hiatal hernia. The appendix is normal. BONES AND SOFT TISSUES: A peripherally e nhancing fluid collection in the lower abdominal midline incision dafne sures 4.8 x 3.9 x 3.3 cm. Mild degenerative disc changes of the reuben mbar spine. IMPRESSION: 1.No recurrent or metastatic disease in the chest, abdomen, or pelvis. A right upper lobe 0.3 cm pulmon dotty nodule is indeterminate. 2.A peripherally enhancing fluid collect ion in the lower abdominal midline incision measures 4.8 cm. This c ould be a seroma or an abscess depending on clinical setting. 3.A subserosal leiomyoma measures 3.2 cm . 4.A deep right thyroid nodule measures 1 .5 cm. Further evaluation with a thyroid ultrasound is recommended . Signed: Sergei Coates MD Report Verified Date/Time:03/21/2020 15:37:07 Reading Location: [address] Reading Room Procedure Note Interface, External Ris In - 03/21/2020 3:39 PM CDT FINAL REPORT TECHNIQUE: CT of the chest, abdomen, and pelvis WITH intravenous contrast and WITHOUT oral contrast. Dose modulation, iterative reconstruction, and/or weight-based adju stment of the mA/kV was utilized to reduce the radiation dose to as low as reasonably achievable. INDICATION: Malignant neoplasm of right kidney. COMPARISON: CT from 12/30/2019. FINDINGS: LINES/TUBES: None. LUNGS AND AIRWAYS: Trace bilateral air t rapping. A right upper lobe calcified granuloma on axial image 49 me asures 0.2 cm. A punctate calcified granuloma seen in the medial r ight upper lobe on axial image 30. Thyroid nodules as follow: *A right upper lobe pulmonary nodule on axial image 45 measures 0.3 cm. *A nodule along the left major fissure m easures 0.3 cm on axial image 46. This is most likely a fissural lymph node. PLEURA: The pleural spaces are clear. HEART AND MEDIASTINUM: A deep right thyr oid nodule measures 1.5 cm. No significant mediastinal, hilar, or ax illary lymphadenopathy. The heart and pericardium are within normal limits. HEPATOBILIARY: A cyst in segment II kelley ures 1.3 cm. A hypodensity in segment V is too small to characterize, measures 0.7 cm, and is unchanged. Gallbladder is unremarkable. No biliary ductal dilatation. SPLEEN: No splenomegaly. PANCREAS: No focal masses or ductal dila tation. ADRENALS: No adrenal nodules. KIDNEYS/URETERS: Prior right nephrectomy . There are postsurgical changes in the right nephrectomy bed inc luding a trace amount of fluid. No left hydronephrosis, stones, o r masses. PELVIC ORGANS/BLADDER: A left posterior uterine mass measures 3.2 cm and is most consistent with a subserosal leiomyoma. PERITONEUM/RETROPERITONEUM: Trace fluid in the right nephrectomy bed. No free air LYMPH NODES: No lymphadenopathy. VESSELS: Unremarkable. GI TRACT: No distention or wall thickeni ng. Mild diverticulosis of the sigmoid colon. Small, sliding hiatal hernia. The appendix is normal. BONES AND SOFT TISSUES: A peripherally e nhancing fluid collection in the lower abdominal midline incision dafne sures 4.8 x 3.9 x 3.3 cm. Mild degenerative disc changes of the reuben mbar spine. IMPRESSION: 1.No recurrent or metastatic disease in the chest, abdomen, or pelvis. A right upper lobe 0.3 cm pulmon dotty nodule is indeterminate. 2.A peripherally enhancing fluid collect ion in the lower abdominal midline incision measures 4.8 cm. This c ould be a seroma or an abscess depending on clinical setting. 3.A subserosal leiomyoma measures 3.2 cm . 4.A deep right thyroid nodule measures 1 .5 cm. Further evaluation with a thyroid ultrasound is recommended . Signed: Sergei Coates MD Report Verified Date/Time: 03/21/2020 1 5:37:07 Reading Location: [facility] C013X [facility] Reading Room Performing Organization Address City/State/Zipcode Phone Number [facility] CT Chest with IV Contrast (03/21/2020 2:56 PM CDT) Specimen Narrative Performed At FINAL REPORT [facility] TECHNIQUE: CT of the chest, abdomen, and pelvis WITH intravenous contrast and WITHOUT oral contrast. Dose modulation, iterative reconstruction, and/or weight-based adju stment of the mA/kV was utilized to reduce the radiation dose to as low as reasonably achievable. INDICATION: Malignant neoplasm of right kidney. COMPARISON: CT from 12/30/2019. FINDINGS: LINES/TUBES: None. LUNGS AND AIRWAYS: Trace bilateral air t rapping. A right upper lobe calcified granuloma on axial image 49 me asures 0.2 cm. A punctate calcified granuloma seen in the medial r ight upper lobe on axial image 30. Thyroid nodules as follow: *A right upper lobe pulmonary nodule on axial image 45 measures 0.3 cm. *A nodule along the left major fissure m easures 0.3 cm on axial image 46. This is most likely a fissural lymph node. PLEURA: The pleural spaces are clear. HEART AND MEDIASTINUM: A deep right thyr oid nodule measures 1.5 cm. No significant mediastinal, hilar, or ax illary lymphadenopathy. The heart and pericardium are within normal limits. HEPATOBILIARY: A cyst in segment II kelley ures 1.3 cm. A hypodensity in segment V is too small to characterize, measures 0.7 cm, and is unchanged. Gallbladder is unremarkable. No biliary ductal dilatation. SPLEEN: No splenomegaly. PANCREAS: No focal masses or ductal dila tation. ADRENALS: No adrenal nodules. KIDNEYS/URETERS: Prior right nephrectomy . There are postsurgical changes in the right nephrectomy bed inc luding a trace amount of fluid. No left hydronephrosis, stones, o r masses. PELVIC ORGANS/BLADDER: A left posterior uterine mass measures 3.2 cm and is most consistent with a subserosal leiomyoma. PERITONEUM/RETROPERITONEUM: Trace fluid in the right nephrectomy bed. No free air LYMPH NODES: No lymphadenopathy. VESSELS: Unremarkable. GI TRACT: No distention or wall thickeni ng. Mild diverticulosis of the sigmoid colon. Small, sliding hiatal hernia. The appendix is normal. BONES AND SOFT TISSUES: A peripherally e nhancing fluid collection in the lower abdominal midline incision dafne sures 4.8 x 3.9 x 3.3 cm. Mild degenerative disc changes of the reuben mbar spine. IMPRESSION: 1.No recurrent or metastatic disease in the chest, abdomen, or pelvis. A right upper lobe 0.3 cm pulmon dotty nodule is indeterminate. 2.A peripherally enhancing fluid collect ion in the lower abdominal midline incision measures 4.8 cm. This c ould be a seroma or an abscess depending on clinical setting. 3.A subserosal leiomyoma measures 3.2 cm . 4.A deep right thyroid nodule measures 1 .5 cm. Further evaluation with a thyroid ultrasound is recommended . Signed: Sergei Coates MD Report Verified Date/Time:03/21/2020 15:37:07 Reading Location: [address] Reading Room Procedure Note Interface, External Ris In - 03/21/2020 3:39 PM CDT FINAL REPORT TECHNIQUE: CT of the chest, abdomen, and pelvis WITH intravenous contrast and WITHOUT oral contrast. Dose modulation, iterative reconstruction, and/or weight-based adju stment of the mA/kV was utilized to reduce the radiation dose to as low as reasonably achievable. INDICATION: Malignant neoplasm of right kidney. COMPARISON: CT from 12/30/2019. FINDINGS: LINES/TUBES: None. LUNGS AND AIRWAYS: Trace bilateral air t rapping. A right upper lobe calcified granuloma on axial image 49 me asures 0.2 cm. A punctate calcified granuloma seen in the medial r ight upper lobe on axial image 30. Thyroid nodules as follow: *A right upper lobe pulmonary nodule on axial image 45 measures 0.3 cm. *A nodule along the left major fissure m easures 0.3 cm on axial image 46. This is most likely a fissural lymph node. PLEURA: The pleural spaces are clear. HEART AND MEDIASTINUM: A deep right thyr oid nodule measures 1.5 cm. No significant mediastinal, hilar, or ax illary lymphadenopathy. The heart and pericardium are within normal limits. HEPATOBILIARY: A cyst in segment II kelley ures 1.3 cm. A hypodensity in segment V is too small to characterize, measures 0.7 cm, and is unchanged. Gallbladder is unremarkable. No biliary ductal dilatation. SPLEEN: No splenomegaly. PANCREAS: No focal masses or ductal dila tation. ADRENALS: No adrenal nodules. KIDNEYS/URETERS: Prior right nephrectomy . There are postsurgical changes in the right nephrectomy bed inc luding a trace amount of fluid. No left hydronephrosis, stones, o r masses. PELVIC ORGANS/BLADDER: A left posterior uterine mass measures 3.2 cm and is most consistent with a subserosal leiomyoma. PERITONEUM/RETROPERITONEUM: Trace fluid in the right nephrectomy bed. No free air LYMPH NODES: No lymphadenopathy. VESSELS: Unremarkable. GI TRACT: No distention or wall thickeni ng. Mild diverticulosis of the sigmoid colon. Small, sliding hiatal hernia. The appendix is normal. BONES AND SOFT TISSUES: A peripherally e nhancing fluid collection in the lower abdominal midline incision dafne sures 4.8 x 3.9 x 3.3 cm. Mild degenerative disc changes of the reuben mbar spine. IMPRESSION: 1.No recurrent or metastatic disease in the chest, abdomen, or pelvis. A right upper lobe 0.3 cm pulmon dotty nodule is indeterminate. 2.A peripherally enhancing fluid collect ion in the lower abdominal midline incision measures 4.8 cm. This c ould be a seroma or an abscess depending on clinical setting. 3.A subserosal leiomyoma measures 3.2 cm . 4.A deep right thyroid nodule measures 1 .5 cm. Further evaluation with a thyroid ultrasound is recommended . Signed: Sergei Coates MD Report Verified Date/Time: 03/21/2020 1 5:37:07 Reading Location: [facility] C013X [facility] Reading Room Performing Organization Address City/State/Zipcode Phone Number [facility] POC-Creatinine (03/21/2020 2:31 PM CDT) POC-Creatinine 1.1Comment: : TESTED AT 0.6 - 1.3 mg/dL [facility] [address] [facility], [facility] [address]: Electroencephalographic Technician/Greaser Helper ID = [id number] for DYANA ESCOBEDO POC-EGFR 50 mL/min/1.73M2 [facility] Specimen Blood Performing Organization Address City/State/Zipcode Phone Number [facility] [address] [place], [place] [id number] CENTER TRANSFUSION SERVICE REPORT - SCAN (02/09/2020 6:00 PM CDT) Narrative Performed At This result has an attachment that is no t available. CBC with platelet count + automated diff (02/09/2020 3:42 AM CDT)Only the most recent of3 resultswithin the time period is included. WBC 14.4 (H) 3.5 - 10.5 K/L [facility] RBC 4.03 3.93 - 5.22 M/L [facility] Hemoglobin 12.4 11.2 - 15.7 GM/DL [facility] Hematocrit 37.9 34.1 - 44.9 % [facility] MCV 94.0 79.4 - 94.8 fL [facility] MCH 30.8 25.6 - 32.2 pg [facility] MCHC 32.7 32.2 - 35.5 GM/DL [facility] RDW 13.1 11.7 - 14.4 % [facility] Platelets 296 150 - 450 K/CU MM [facility] MPV 9.1 (L) 9.4 - 12.3 fL [facility] nRBC 0 0 - 0 /100 WBC [facility] % Neutros 83 % [facility] % Lymphs 9 % [facility] % Monos 7 % [facility] % Eos 0 % [facility] % Baso 0 % [facility] # Neutros 11.89 (H) 1.56 - 6.13 K/L [facility] # Lymphs 1.31 1.18 - 3.74 K/L [facility] # Monos 1.06 (H) 0.24 - 0.36 K/L [facility] # Eos 0.00 (L) 0.04 - 0.36 K/L [facility] # Baso 0.03 0.01 - 0.08 K/L [facility] Immature 0 0 - 1 % [facility] Granulocytes-Relative [facility] Specimen Blood Performing Organization Address City/State/Zipcode Phone Number [facility] [address] [place] [address] CENTER Basic metabolic panel (02/09/2020 3:42 AM CDT)Only the most recent of3 results within the time period is included. Sodium 140 136 - 145 meq/L [facility] Potassium 3.9 3.5 - 5.1 meq/L [facility] Chloride 112 (H) 98 - 107 meq/L [facility] CO2 23 22 - 29 meq/L [facility] BUN 12 7 - 21 mg/dL [facility] Creatinine 1.09 0.57 - 1.25 mg/dL [facility] Glucose 107 (H) 70 - 105 mg/dL [facility] Calcium 7.9 (L) 8.4 - 10.2 mg/dL [facility] EGFR 51Comment: ESTIMATED GFR IS mL/min/1.73 sq m [facility] NOT ACCURATE CRE[facility]ININE [facility] CLEARANCE IN PREDICTING GLOMERULAR FILTRATION RATE. ESTIMATED GFR IS NOT APPLICABLE FOR DIALYSIS PATIENTS. Specimen Blood Narrative Performed At Electroencephalographic Technician ID - YOJANA B [facility] Performing Organization Address City/State/Zipcode Phone Number [facility] [address] [place] [address] CENTER Tissue Exam (02/08/2020 12:04 PM CDT) Case Report Surgical Pathology Report Case: [id number] [facility] Authorizing Provider:Colten Fonseca MD Collected: 02/08/2020 12:04 PM [facility] Ordering Location: [facility] Received:02/08/2020 01:50 PM SERVICES Pathologist: Karoline Flores MD Specimens: A) - Kidney, Right B) - Lymph Node, RIGHT PERITONEAL LYMPH NODES DIAGNOSIS A. 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 RIGHT RETROPERITONEAL LYMPH NODES, DISSECTION : - NINE BENIGN LYMPH NODES (0/9) - NEGATIVE FOR MALIGNANCY - SEE COMMENT - SEE [facility] REPORT Signing Pathologist Direct Phone Line: [facility] REPORT KIDNEY: Nephrectomy(Kidney - All Specimens) [facility] ER 8th Edition - Protocol posted: 04/14/2019 SPECIMEN Procedure:Radical nephrectomy Specimen Laterality:Right TUMOR Tumor Site:Middle Histologic Type:Clear cell renal ce ll carcinoma Histologic Grade: G2: Nucleoli conspicuous and eosinophilic at 400x magnification, visible but not prominent at 100x magnification Tumor Size:Greatest Dimension (Cent imeters): 4.5 cm Additional Dimension (Centimeters): 3.3 cm Additional Dimension (Centimeters): 2.3 cm Tumor Focality:Unifocal Tumor Extension:Tumor extension int o renal sinus Sarcomatoid Features:Not identified Rhabdoid Features:Not identified Tumor Necrosis:Not identified Lymphovascular Invasion:Present MARGINS Margins:Uninvolved by invasive carc inoma LYMPH NODES Number of Lymph Nodes Involved:0 Number of Lymph Nodes Examined:9 PATHOLOGIC STAGE CLASSIFICATION (pTNM, AJCC 8th Edition) Primary Tumor (pT):pT3a Regional Lymph Nodes (pN):pN0 ADDITIONAL FINDINGS Pathologic Findings in Nonneoplastic Kidney :None identified CPT Code(s) 64373 X 2 [facility] CLINICAL HISTORY Renal mass [facility] SPECIMEN SOURCE A. Kidney, right [facility] B. Right peritoneal lymph nodes [facility] GROSS DESCRIPTION A. Received fresh labelled w ith the patients name, medical record number and "kidney, right" is a 774 g, 24 x 14.5 x 7.5 cm radical nephrectomy. The ureter is 7.5 cm in length and 0.3 cm in diameter, [facility] and the kidney is 11.5 x 6. 7 x 5.7 cm. The adrenal gland is absent. There is an abundant amount of attached perinephric fat. [facility] The kidney capsule is pink a nd smooth. Gerota's fascia is intact. The specimen is opened to reveal a well-circumscribed, wray yellow, red-branch, solid and cystic mass in the midpole of the posterior a spect measuring 4.5 x 3.3 x 2.3 cm. The mass is 3.5 cm from the renal vein margin, abuts the renal sinus and kidney capsule, and does not involve the renal vein. The mass appears focally necrotic and hemorrhagic. The remaining renal parenchyma is pink-red and smooth. The cortical medullary junction is well demarcated and measures 0.9 cm. Lymph nodes are not identified. [employer] sections are submitted. Ink code: Green: Renal vein Blue: Outer surface of specimen Section code: A1: Ureter and vascular margins, en face A2-A3: Mass to vein and renal sinus A4-A7: Mass to renal sinus A8: Mass to kidney capsule and Gerota's fascia A 9: Mass with hemorrhage to uninvolved renal pa renchyma A 10: Mass with hemorrhage to renal sinus A 11: Uninvolved kidney B. Received fresh labelled w ith the patients name, medical record number and "right peritoneal lymph nodes" is a 4.5 x 3 x 1.5 cm irregular portion of adipose tissue. Specimen is serially sectioned t o reveal multiple branch-pink l ymph nodes ranging 0.2-2.1 cm. The specimen is entirely submitted. Section code: B1-B4: 1 possible lymph node bisected in each ca ssette B5-B6 1 lymph node, bisected B7: 2 intact lymph nodes B8: Remainder of specimen ADITHYA John PA (ASCP) MICROSCOPIC DESCRIPTION PERFORMED [facility] ER Specimen Tissue Tissue - Structure of lymph node (body s tructure) Performing Organization Address City/[facility] Cent[facility] Phone Number [address] [address] [facility], manual (02/08/2020 6:02 AM CDT) ABO Grouping O [facility] Rh Factor POS [facility] Specimen Blood Performing Organization Address [facility] Centercode Phone Number [address] [address] Type and screen, automated (02/08/2020 5:52 AM CDT) ABO/RH AUTOMATED (BEAKER) O POSITIVE [facility] Ab Scrn NEGATIVE [facility] Specimen Blood Performing Organization Address [facility] Phone Number [address] [address] XR Chest 2 Views (02/04/2020 11:08 AM CDT) Specimen Narrative Performed At FINAL REPORT [facility] TECHNIQUE: Frontal and lateral chest rad iographs dated 02/04/2020. CLINICAL HISTORY: Right renal mass COMPARISON STUDY: None FINDINGS: Scarring/atelectasis is seen in the mid left lung. Lungs are otherwise clear. No pleural effusion or pneumothorax. Cardiomediastinal silhouette is normal i n size. No pulmonary edema. Bones are osteopenic. IMPRESSION: Scarring/atelectasis in the mid left marcos g otherwise unremarkable. Signed: Cm Young MD Report Verified Date/Time:02/04/2020 11:51:56 Reading Location: [facility] 10[facility] Hir Radiolog y Reading Room Procedure Note Interface, External Ris In - 02/04/2020 11:54 AM CDT FINAL REPORT TECHNIQUE: Frontal and lateral chest rad iographs dated 02/04/2020. CLINICAL HISTORY: Right renal mass COMPARISON STUDY: None FINDINGS: Scarring/atelectasis is seen in the mid left lung. Lungs are otherwise clear. No pleural effusion or pneumothorax. Cardiomediastinal silhouette is normal i n size. No pulmonary edema. Bones are osteopenic. IMPRESSION: Scarring/atelectasis in the mid left marcos g otherwise unremarkable. Signed: Cm Young MD Report Verified Date/Time: 02/04/2020 1 1:51:56 Reading Location: [facility] 10th Hir Radiolog y Reading Room Performing Organization Address City/State/Zipcode Phone Number [employer] SARS-CoV2/RT-PCR (HS & Ref Labs) (02/04/2020 10:52 AM CDT) SARS-COV2/RT-PCR Negative Not Detected, Negative SLE NON -INTERFACED REFERENCE LABS SARS-COV-2 PERFORMING LAB CPL SLEH N ON-INTERFACED REFERENCE LABS Specimen Other Performing Organization Address City/[facility] Cent[facility]ofl Phone Number [facility] NON-INTERFACED REFERENCE LABS RHYTHM STRIP - SCAN (02/02/2020 2:11 PM CDT) Narrative Performed At This result has an attachment that is no t available. US renal complete (01/29/2020 10:54 AM CDT) Specimen Narrative Performed At FINAL REPORT [facility] Renal ultrasound dated 01/29/2020 Comment:Real-time transabdominal sixto al ultrasound was performed. Right kidney measures 11 x 5.9 x 4.7 cm. Left kidney measures 11.2 x 4.5 x 4.2 cm.Right renal cortex measures 1.0 cm. Left renal cortex measures 0.7 cm. Echogenicity of both renal parenchyma is normal. No hydronephrosis, solid or cystic mass seen. The urinary bladder is contracted. Doppler ultrasound demonstrates patent m ain renal artery and vein bilaterally. Impression:Unremarkable renal ultras ound without hydronephrosis. Signed: Saira Cantrell MD Report Verified Date/Time:01/29/2020 15:21:36 Reading Location: [facility] C013X [facility] Reading Room Procedure Note Interface, External Ris In - 01/29/2020 3:23 PM CDT FINAL REPORT Renal ultrasound dated 01/29/2020 Comment: Real-time transabdominal renal ultrasound was performed. Right kidney measures 11 x 5.9 x 4.7 cm. Left kidney measures 11.2 x 4.5 x 4.2 cm. Right renal cortex measur es 1.0 cm. Left renal cortex measures 0.7 cm. Echogenicity of both renal parenchyma is normal. No hydronephrosis, solid or cystic mass seen. The urinary bladder is contracted. Doppler ultrasound demonstrates patent m ain renal artery and vein bilaterally. Impression: Unremarkable renal ultrasou nd without hydronephrosis. Signed: Saira Cantrell MD Report Verified Date/Time: 01/29/2020 1 5:21:36 Reading Location: [facility] C013X [facility] Reading Room Performing Organization Address City/State/Zipcode Phone Number [facility] Urinalysis w/Microscopic (01/29/2020 5:46 AM CDT) Color, UA Brown [facility] Clarity, UA Hazy [facility] Specific Lapaz, UA 1.023 1.001 - 1.035 [facility] pH, UA 6.0 5.0 - 8.0 [facility] Protein, UA 100 mg/dL (A) Negative [facility] Glucose, UA Negative Negative [facility] Ketones, UA 80 mg/dL (A) Negative [facility] Bilirubin, UA Negative Negative [facility] Blood, UA Large (A) Negative [facility] Nitrite, UA Negative Negative [facility] Leukocytes, UA Moderate (A) Negative [facility] Urobilinogen, UA 0.2 0.2 - 1.0 mg/dL [facility] RBC, UA 2,181 /HPF [facility] WBC, UA 30 /HPF [facility] Mucus Occasional [facility] Squam Epithel, UA 2 /HPF [facility] Specimen Source [facility] Specimen Urine Narrative Performed At Electroencephalographic Technician ID - [auto] [facility] Electroencephalographic Technician ID - tech Performing Organization Address City/State/Zipcode Phone Number [place] [phone] [place] [address] [facility] fluoro non-specific up to 1 hour (01/28/2020 2:34 PM CDT) Specimen Narrative Performed At FINAL REPORT [facility] Technique: Fluoroscopic images dated 01/16 History: Right stent placement COMPARISON: None IMPRESSION: Total fluoroscopy time is 0.9 minutes. T otal number of images is 13. Images reveal placement of a right doubl e-J ureteral stent. Please see operative report for details. Signed: Cm Young MD Report Verified Date/Time:01/28/2020 15:09:04 Reading Location: [address] Radiolog y Reading Room Procedure Note Interface, External Ris In - 01/28/2020 3:11 PM CDT FINAL REPORT Technique: Fluoroscopic images dated 01/16 History: Right stent placement COMPARISON: None IMPRESSION: Total fluoroscopy time is 0.9 minutes. T otal number of images is 13. Images reveal placement of a right doubl e-J ureteral stent. Please see operative report for details. Signed: Cm Young MD Report Verified Date/Time: 01/28/2020 1 5:09:04 Reading Location: [address] Radiolog y Reading Room Performing Organization Address City/State/Zipcode Phone Number GE RIS after 04/27/2019 Insurance Payer Benefit Plan / Subscriber ID Type Phone Address Group BLUE CROSS/BLUE BCBS PPO POS EPO xxxxxxxxxxxx PPO [phone] [address] [place] [address] CDC REVIEW CDC REVIEW xxxxxxxx [place] [address] Advance Directives For more information, please contact:[address] [phone] Code Status Date Activated Date Inactivated Comments Full Code 02/08/2020 3:31 PM 02/09/2020 6:29 PM This code status was determined by: Patient Full Code 01/29/2020 5:20 AM 01/29/2020 8:51 PM This code status was determined by: Patient
--- OUTSIDE RECORDS SUMMARY | 2020-04-27 04:27 | XMS REPORT | Continuity of Care Document ---
:1955 Author Organization [facility] t Address [address] [place] [address] Care Team Providers Name Role Phone Rasta EVANS Moncho Primary Care Physician Paulo Mcfarland MD Attending Clinician Paulo Mcfarland MD Attending Clinician [address] [place] [address] Room Attending Clinician Unavailable PAULO MCFARLAND Attending Clinician Unavailable TIMOTHY RAMOS Attending Clinician Unavailable Timothy Ramos MD Attending Clinician Donna Nolasco CRNA Attending Clinician Timothy Raoms MD Attending Clinician Carolina EVANS Attending Clinician Noemí Lynn MD Attending Clinician CAROLINA Attending Clinician Unavailable Romero Jeronimo MD Attending Clinician Raymundo EVANS Attending Clinician Yesi Jeronimo MD Attending Clinician TIMOTHY RAMOS Admitting Clinician Unavailable Noemí LYNN Admitting Clinician Unavailable Payers Payer Name Policy Type Policy Number Effective Date Expiration Source Date BLUE CROSS/BLUE xxxxxxxxxxxx [facility] P[facility] POS [facility] EPO Medical CHOICExxxxxxxxxxxxPPO [facility] [id number], [place] [address] [facility] REVIEWCDC xxxxxxxx [facility] REVIEWxxxxxxxxPO Formerly [facility] [id number] Center Problems Condition Condition Condition Status Onset Resolution Last Treating Co mments Source Name Details Category Date Date Treatment Clinician Date Right Right Disease Active [facility] renal mass renal mass 02-07 Jeanie kes - 00:00: Medical 00 [place] Nausea & Nausea & Disease Active [facility] vomiting vomiting 01-28 [facility] - [facility] Medical 00 [place] Vomiting Vomiting Disease Active [facility] Medical 00 [place] Renal mass Renal mass Disease Active [facility] 01-27 [facility] - 00:[facility]: Medical 00 Center Allergies, Adverse Reactions, Alerts Allergy Allergy Status Severity Reaction(s) Onset Inactive Treating Comm ents Source Name Type Date Date Clinician Shrimp Propensi Active Anaphylaxis [facility] 01-26 [facility] - adverse 00:00: Medical reaction 00 Center s Social History Social Habit Start Date Stop Date Quantity Comments Source History of tobacco Current smoker [facility] use [facility] Center History [facility] - Alcohol Std Drinks Medica l [place] History [facility] - Alcohol Binge Medical [facility] ter Sex Assigned At [facility] Cigarettes smoked 2020-02-08 2020-02-[address] [facility] - current (pack per 00:00:00 00:00:00 [facility] Center day) - Reported Cigarette 2020-02-08 2020-02-[address] [facility] [address] [facility] - pack-years 00:00:00 00:00:00 [facility] History SDOH 2020-01-27 2020-01-[address] [facility] - Alcohol Frequency 00:00:00 00:00:00 [facility] Smoking Status Start Date Stop Date Source Former smoker 2020-02-08 00:00:00 2020-02-08 00:00:[address] [facility] Medications Ordered Filled Start Stop Current Ordering Indication Dosage Frequency Signature Comments Components Source Medication Medication Date Date Medication? Clinician (SIG) Name Name acetaminoph 2019- No 650mg Take [address] en 02-08 06-24 mg by [facility] - (TYLENOL) 15:17: 00:00 mouth Medica l 325 MG 17 :00 every 6 Center tablet (six) hours as needed for Pain. traMADoL 2019- No 50mg Take [address] (ULTRAM) 50 02-08 by mouth [place] [facility] - mg tablet 15:17: 00:00 every 6 Medi korey 17 :00 (six) Center hours as needed for Pain. docusate 2019- 2020- No 100mg Q.5D Take 1 [facility] sodium 02-08- capsule [facility] - (COLACE) 00:00: 23:59 (100 mg Medic al 100 MG 00 :00 total) by Center capsule mouth 2 (two) times daily for 10 days. acetaminoph 2019- No 1{tbl} Take [address] en-codeine 02-08 tablet by [place] [facility] - (TYLENOL-CO 00:00: 23:59 mouth Medi korey DEINE #3) 00 :00 every 4 Center 300-30 mg (four) per tablet hours as needed for Pain for up to 5 days. Max Daily Amount: 6 tablets traMADoL 2019- No 50mg Take [address] (ULTRAM) 50 02-06 by mouth [place] [facility] - mg tablet 14:18: 00:00 every 6 Medi korey 38 :00 (six) Center hours as needed for Pain. ondansetron 2020- No 4mg Take [address] (ZOFRAN) 4 01-2820 tablet (4 [place] [facility] - MG tablet 00:00: 23:59 mg total) Me dical 00 :00 by mouth 2 Center (two) times daily as needed for Nausea for up to 7 days. tamsulosin 2020- No .4mg QD Take [address] (FLOMAX) 01-2719 capsule [facility] - 0.4 mg Cap 00:00: 23:59 (0.4 mg Med ical 24 hr 00 :00 total) by Center capsule mouth daily for 7 days. nitrofurant 2019- 2020- No 100mg Q.5D Take [address] oin, 01-2715 capsule [facility] - macrocrysta 00:00: 23:59 (100 mg Me dical l-monohydra 00 :00 total) by [address] ter te, mouth 2 (MACROBID) (two) 100 MG times capsule daily for 3 days. phenazopyri 2020- No 200mg Take [address] dine 01-[address] [facility] - (PYRIDIUM) 00:00: 23:59 (200 mg Med ical 200 MG 00 :00 total) by Center tablet mouth 3 (three) times daily as needed for up to 3 days. Vital Signs Vital Name Observation Time Observation Value Comments Source Systolic blood 2020-02-09 12:53:00 140 mm[Hg] [facility] Diastolic blood 2020-02-09 12:53:00 63 mm[Hg] [facility] Heart rate 2020-02-09 12:53:00 77 /min [facility] Body temperature 2020-02-09 12:53:00 36.56 [facility] Respiratory rate 2020-02-09 12:53:00 18 /min [facility] Oxygen saturation in 2020-02-09 12:53:00 96 /min [facility] Arterial blood by Medical Ce nter Pulse oximetry Body height 2020-02-08 05:38:00 165.1 cm [facility] Body weight Measured 2020-02-08 05:38:00 104.146 kg [facility] BMI 2020-02-08 05:38:00 38.21 kg/m2 [facility] Procedures Procedure Date / Time Performed Performing Clinician [facility] e CT ABDOMEN/PELVIS WITH 2020-03-21 14:56:00 May Mcfarland CH [facility] IV CONTRAST [facility] CT CHEST WITH IV 2020-03-21 14:56:00 May Mcfarland [facility] CONTRAST [facility] POCT-CREATININE 2020-03-21 14:31:00 May Mcfarland [facility] TRANSFUSION SERVICE 2020-02-09 18:00:53 Provider, Default [facility] - REPORT - SCAN Scanning [facility] BASIC METABOLIC PANEL 2020-02-09 03:42:00 Roger Bradford CH I [facility] - (7) [facility] CBC W/PLT COUNT & AUTO 2020-02-09 03:42:[address] [facility] - DIFFERENTIAL [facility] BASIC METABOLIC PANEL 2020-02-08 17:32:00 Roger Bradford CH [facility] () [facility] CBC W/PLT COUNT & AUTO 2020-02-08 13:21:00 Roger Bradford [facility] TISSUE EXAM 2020-02-08 12:04:00 Colten Ramos [facility] LAPAROSCOPY,NEPHRECTOMY 2020-02-08 07:15:00 Colten Ramos [facility] ABORH, MANUAL 2020-02-08 06:02:00 Verenice Morse [facility] TYPE AND SCREEN, 2020-02-08 05:52:[address] [facility] AUTOMATED [facility] XR CHEST 2 VIEWS 2020-02-04 11:08:00 Colten Ramos [facility] SARS-COV2/RT-PCR ([facility] & 2020-02-04 10:52:00 Colten Ramos [facility] - REF LABS) [facility] RHYTHM STRIP - SCAN 2020-02-02 14:11:50 Provider[facility]vador [facility] US RENAL COMPLETE 2020-01-29 10:54:00 Greg Frias [facility] URINALYSIS W/ 2020-01-29 05:46:00 [facility] BASIC METABOLIC PANEL 2020-01-29 02:04:00 [facility] CBC W/PLT COUNT & AUTO 2020-01-29 02:04:00 [facility] FL FLUORO NON-SPECIFIC 2020-01-28 14:34:[address] [facility] UP TO 1 HOUR [facility] CYSTOSCOPY,URETEROSCOPY 2020-01-28 10:55:00 Joseph Jeronimo [facility] CYSTOSCOPY,INSERTION 2020-01-28 10:55:00 Joseph Jeronimo [facility] URETERAL STENTS [facility] Encounters Start End Encounter Admission Attending Care Care Encounter Source Date/Time Date/Time Type Type Clinicians Facility Department ID 2020-04-04 2020-04-04 Office Rita Mcfarland [facility] [id number] 10:27:45 11:31:09 Visit Paulo Narvaezr [id number] 2020-03-14 2020-03-14 Office Rita Mcfarland [facility] [id number] 13:41:54 14:46:38 Visit Paulo Narvaezr [id number] 2020-02-03 2020-02-03 Office KEYONA Ramos [id number] 14:23:24 14:38:24 Visit Colten Aguirre AMBULATOR [id number] Y [id number] [id number] 2020-01-18 2020-01-18 Office KEYONA Jeronimo [id number] 14:01:19 16:33:11 Visit Joseph Key AMBULATOR [id number] Y [id number] [id number] 2020-01-11 2020-01-11 Office KEYONA Jeronimo [id number] 13:41:37 13:58:07 Visit Joseph Key AMBULATOR [id number] Y [id number] [id number] Results Test Description Test Time Test Comments Results Result [facility] e Comments CT, ABDOMEN 2020-03-21 FINAL REPORT 15:37:00 TECHNIQUE: CT of the chest, abdomen, and pelvis WITH intravenous contrast and WITHOUT oral contrast. Dose modulation, iterative reconstruction, and/or weight-based adjustment of the mA/kV was utilized to reduce the radiation dose to as low as reasonably achievable. INDICATION: Malignant neoplasm of right kidney. COMPARISON: CT from 12/30/2019. FINDINGS: LINES/TUBES: None. LUNGS AND AIRWAYS: Trace bilateral air trapping. A right upper lobe calcified granuloma on axial image 49 measures 0.2 cm. A punctate calcified granuloma seen in the medial right upper lobe on axial image 30. Thyroid nodules as follow:*A right upper lobe pulmonary nodule on axial image 45 measures 0.3 cm.*A nodule along the left major fissure measures 0.3 cm on axial image 46. This is most likely a fissural lymph node. PLEURA: The pleural spaces are clear.HEART AND MEDIASTINUM: A deep right thyroid nodule measures 1.5 cm. No significant mediastinal, hilar, or axillary lymphadenopathy. The heart and pericardium are within normal limits. HEPATOBILIARY: A cyst in segment II measures 1.3 cm. A hypodensity in segment V is too small to characterize, measures 0.7 cm, and is unchanged. Gallbladder is unremarkable. No biliary ductal dilatation.SPLEEN: No splenomegaly.PANCRE : No focal masses or ductal dilatation. ADRENALS: No adrenal nodules.KIDNEYS/URE TERS: Prior right nephrectomy. There are postsurgical changes in the right nephrectomy bed including a trace amount of fluid. No left hydronephrosis, stones, or masses. PELVIC ORGANS/BLADDER: A left posterior uterine mass measures 3.2 cm and is most consistent with a subserosal leiomyoma. PERITONEUM/RETROPER ITONEUM: Trace fluid in the right nephrectomy bed. No free airLYMPH NODES: No lymphadenopathy.VES SELS: Unremarkable. GI TRACT: No distention or wall thickening. Mild diverticulosis of the sigmoid colon. Small, sliding hiatal hernia. The appendix is normal. BONES AND SOFT TISSUES: A peripherally enhancing fluid collection in the lower abdominal midline incision measures 4.8 x 3.9 x 3.3 cm. Mild degenerative disc changes of the lumbar spine. IMPRESSION: 1.No recurrent or metastatic disease in the chest, abdomen, or pelvis. A right upper lobe 0.3 cm pulmonary nodule is indeterminate. 2.A peripherally enhancing fluid collection in the lower abdominal midline incision measures 4.8 cm. This could be a seroma or an abscess depending on clinical setting. 3.A subserosal leiomyoma measures 3.2 cm. 4.A deep right thyroid nodule measures 1.5 cm. Further evaluation with a thyroid ultrasound is recommended. Signed: Sergei Coates MDReport Verified Date/Time: 03/21/2020 15:37:07 Reading Location: [facility] C013X [facility] Consult Reading Room , CHEST, WITH 2020-03-21 FINAL REPORT IV CONTRAST 15:37:00 TECHNIQUE: CT of the chest, abdomen, and pelvis WITH intravenous contrast and WITHOUT oral contrast. Dose modulation, iterative reconstruction, and/or weight-based adjustment of the mA/kV was utilized to reduce the radiation dose to as low as reasonably achievable. INDICATION: Malignant neoplasm of right kidney. COMPARISON: CT from 12/30/2019. FINDINGS: LINES/TUBES: None. LUNGS AND AIRWAYS: Trace bilateral air trapping. A right upper lobe calcified granuloma on axial image 49 measures 0.2 cm. A punctate calcified granuloma seen in the medial right upper lobe on axial image 30. Thyroid nodules as follow:*A right upper lobe pulmonary nodule on axial image 45 measures 0.3 cm.*A nodule along the left major fissure measures 0.3 cm on axial image 46. This is most likely a fissural lymph node. PLEURA: The pleural spaces are clear.HEART AND MEDIASTINUM: A deep right thyroid nodule measures 1.5 cm. No significant mediastinal, hilar, or axillary lymphadenopathy. The heart and pericardium are within normal limits. HEPATOBILIARY: A cyst in segment II measures 1.3 cm. A hypodensity in segment V is too small to characterize, measures 0.7 cm, and is unchanged. Gallbladder is unremarkable. No biliary ductal dilatation.SPLEEN: No splenomegaly.PANCRE : No focal masses or ductal dilatation. ADRENALS: No adrenal nodules.KIDNEYS/URE TERS: Prior right nephrectomy. There are postsurgical changes in the right nephrectomy bed including a trace amount of fluid. No left hydronephrosis, stones, or masses. PELVIC ORGANS/BLADDER: A left posterior uterine mass measures 3.2 cm and is most consistent with a subserosal leiomyoma. PERITONEUM/RETROPER ITONEUM: Trace fluid in the right nephrectomy bed. No free airLYMPH NODES: No lymphadenopathy.VES SELS: Unremarkable. GI TRACT: No distention or wall thickening. Mild diverticulosis of the sigmoid colon. Small, sliding hiatal hernia. The appendix is normal. BONES AND SOFT TISSUES: A peripherally enhancing fluid collection in the lower abdominal midline incision measures 4.8 x 3.9 x 3.3 cm. Mild degenerative disc changes of the lumbar spine. IMPRESSION: 1.No recurrent or metastatic disease in the chest, abdomen, or pelvis. A right upper lobe 0.3 cm pulmonary nodule is indeterminate. 2.A peripherally enhancing fluid collection in the lower abdominal midline incision measures 4.8 cm. This could be a seroma or an abscess depending on clinical setting. 3.A subserosal leiomyoma measures 3.2 cm. 4.A deep right thyroid nodule measures 1.5 cm. Further evaluation with a thyroid ultrasound is recommended. Signed: Sergei Coates MDReport Verified Date/Time: 03/21/2020 15:37:07 Reading Location: [facility] C013X Ortho Consult Reading Room Chest with IV 2020-03-21 Interface, External [facility] Contrast 15:37:00 Ris In - 03/21/2020 - Med ical 3:39 PM CDINAL Center REPORT TECHNIQUE: CT of the chest, abdomen, and pelvis WITH intravenous contrast and WITHOUT oral contrast. Dose modulation, iterative reconstruction, and/or weight-based adjustment of the mA/kV was utilized to reduce the radiation dose to as low as reasonably achievable. INDICATION: Malignant neoplasm of right kidney. COMPARISON: CT from 12/30/2019. FINDINGS: LINES/TUBES: None. LUNGS AND AIRWAYS: Trace bilateral air trapping. A right upper lobe calcified granuloma on axial image 49 measures 0.2 cm. A punctate calcified granuloma seen in the medial right upper lobe on axial image 30. Thyroid nodules as follow:*A right upper lobe pulmonary nodule on axial image 45 measures 0.3 cm.*A nodule along the left major fissure measures 0.3 cm on axial image 46. This is most likely a fissural lymph node. PLEURA: The pleural spaces are clear.HEART AND MEDIASTINUM: A deep right thyroid nodule measures 1.5 cm. No significant mediastinal, hilar, or axillary lymphadenopathy. The heart and pericardium are within normal limits. HEPATOBILIARY: A cyst in segment II measures 1.3 cm. A hypodensity in segment V is too small to characterize, measures 0.7 cm, and is unchanged. Gallbladder is unremarkable. No biliary ductal dilatation.SPLEEN: No splenomegaly.PANCRE : No focal masses or ductal dilatation. ADRENALS: No adrenal nodules.KIDNEYS/URE TERS: Prior right nephrectomy. There are postsurgical changes in the right nephrectomy bed including a trace amount of fluid. No left hydronephrosis, stones, or masses. PELVIC ORGANS/BLADDER: A left posterior uterine mass measures 3.2 cm and is most consistent with a subserosal leiomyoma. PERITONEUM/RETROPER ITONEUM: Trace fluid in the right nephrectomy bed. No free airLYMPH NODES: No lymphadenopathy.VES SELS: Unremarkable. GI TRACT: No distention or wall thickening. Mild diverticulosis of the sigmoid colon. Small, sliding hiatal hernia. The appendix is normal. BONES AND SOFT TISSUES: A peripherally enhancing fluid collection in the lower abdominal midline incision measures 4.8 x 3.9 x 3.3 cm. Mild degenerative disc changes of the lumbar spine. IMPRESSION: 1.No recurrent or metastatic disease in the chest, abdomen, or pelvis. A right upper lobe 0.3 cm pulmonary nodule is indeterminate. 2.A peripherally enhancing fluid collection in the lower abdominal midline incision measures 4.8 cm. This could be a seroma or an abscess depending on clinical setting. 3.A subserosal leiomyoma measures 3.2 cm. 4.A deep right thyroid nodule measures 1.5 cm. Further evaluation with a thyroid ultrasound is recommended. Signed: Sergei Coates [facility] Verified Date/Time: 03/21/2020 15:37:07 Reading Location: [facility] B1 C013X Ortho Consult Reading Room Abdomen/Pelvis 2020-03-21 Interface, External [facility] with IV Contrast 15:37:00 Ris In - 03/21/2020 - Medical 3:39 PM [facility] RE[facility] TECHNI[facility]: CT of the chest, abdomen, and pelvis WITH intravenous contrast and WITHOUT oral contrast. Dose modulation, iterative reconstruction, and/or weight-based adjustment of the mA/kV was utilized to reduce the radiation dose to as low as reasonably achievable. INDICATION: Malignant neoplasm of right kidney. COMPARISON: CT from 12/30/2019. FINDINGS: LINES/TUBES: None. LUNGS AND AIRWAYS: Trace bilateral air trapping. A right upper lobe calcified granuloma on axial image 49 measures 0.2 cm. A punctate calcified granuloma seen in the medial right upper lobe on axial image 30. Thyroid nodules as follow:*A right upper lobe pulmonary nodule on axial image 45 measures 0.3 cm.*A nodule along the left major fissure measures 0.3 cm on axial image 46. This is most likely a fissural lymph node. PLEURA: The pleural spaces are clear.HEART AND MEDIASTINUM: A deep right thyroid nodule measures 1.5 cm. No significant mediastinal, hilar, or axillary lymphadenopathy. The heart and pericardium are within normal limits. HEPATOBILIARY: A cyst in segment II measures 1.3 cm. A hypodensity in segment V is too small to characterize, measures 0.7 cm, and is unchanged. Gallbladder is unremarkable. No biliary ductal dilatation.SPLEEN: No splenomegaly.PANCRE : No focal masses or ductal dilatation. ADRENALS: No adrenal nodules.KIDNEYS/URE TERS: Prior right nephrectomy. There are postsurgical changes in the right nephrectomy bed including a trace amount of fluid. No left hydronephrosis, stones, or masses. PELVIC ORGANS/BLADDER: A left posterior uterine mass measures 3.2 cm and is most consistent with a subserosal leiomyoma. PERITONEUM/RETROPER ITONEUM: Trace fluid in the right nephrectomy bed. No free airLYMPH NODES: No lymphadenopathy.VES SELS: Unremarkable. GI TRACT: No distention or wall thickening. Mild diverticulosis of the sigmoid colon. Small, sliding hiatal hernia. The appendix is normal. BONES AND SOFT TISSUES: A peripherally enhancing fluid collection in the lower abdominal midline incision measures 4.8 x 3.9 x 3.3 cm. Mild degenerative disc changes of the lumbar spine. IMPRESSION: 1.No recurrent or metastatic disease in the chest, abdomen, or pelvis. A right upper lobe 0.3 cm pulmonary nodule is indeterminate. 2.A peripherally enhancing fluid collection in the lower abdominal midline incision measures 4.8 cm. This could be a seroma or an abscess depending on clinical setting. 3.A subserosal leiomyoma measures 3.2 cm. 4.A deep right thyroid nodule measures 1.5 cm. Further evaluation with a thyroid ultrasound is recommended. Signed: Sergei Coates MDReport Verified Date/Time: 03/21/2020 15:37:07 Reading Location: [facility] C013X [facility] Consult Reading Room -Creatinine 2020-03-21 14:48:00 Test Item Value Reference Range Interpretation Comme nts POC-Creatinine (test code = 1.1 mg/dL 0.6-1.3 : TESTED AT [facility] [address] 0859) BLDG A, [facility] [address]: 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/Techni yahaira ID = [id number] for Frances ESCOBEDO POC-EGFR (test code = 1860) 50 mL/min/1.73M2 [id number] 14:48:00 Test Item Value Reference Range Interpretation Comments POC-CREATININE 1.1 mg/dL 0.6-1.3 : TESTED AT [facility] ([facility]) (test [address] [facility] code = 1859) A, [facility] 7 [address]30: 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/Techni yahaira ID = [id number] for JESSICA ESCOBEDO POC-EGFR 50 mL/min/1.73M2 (BEAKER) (test code = 1860) Tissue [id number] 13:22:00 Test Item Value Reference Range Interpretation Comments Case Report (test Surgical Pathology code = 104) Report Case: [id number] Authorizing Provider: Colten Ramos MD Collected: 02/08/2020 12:04 PM Ordering Location: [facility] Received: 02/08/2020 01:50 PM SERVICES Pathologist: Karoline Flores MD Specimens: A) - Kidney, Right B) - Lymph Node, RIGHT PERITONEAL LYMPH NODES DIAGNOSIS (test code [id number] = 3220) ZzEwMzNcZnRuYmpcdWMxIHtc osAtACcue7KzN9MuStRiIDku bnNpXGRlZmxhbmcxMDMzXGZ0 hvHiYCOwVWllAXHeJHkvTc5d vFNcePdqEpPeFGKuf2jcowPD vzvnzZf7j5yfZSNiWzA8wOGl OUfgZ9mjqyRprLOdWPQpMCs2 yH40MLUouN9wzGOfECgxtjPd UwJ5TXrxYOWoRlD0OYJtdKTb IRQsW8ofUUIdCEydJQRgOOoj aUVuLON9fGlbc2E8sHAxqAFs uSvzTzHxXbErKYQKp2DnFJm1 fAngQ4EuLEMiJbR3bBNlIOAx FEjdDLTiKAKsmnN9cX90KKzx ixQ6uXTdc3Qgl50eg405vO8r vWBqKUA8VLIsJVZlpYVpKFZl DPM8YLKiiBNoU4d6WdQxrNFv V3Z4VwXlrMShE2J2QsJncPCb D2Y0SyUxyPTiDRUbwPSdBv4p mMHvyWVnsq9jjt13NNP3z8Et xEysLZA9ACS6SmKsQd4pxGLo KGRzOK1pOvMxsMHfYWOhef48 aIxdHZhoueUqqF6rOrUkSGZz nGZqOPIfJS7eaNCrGKBkgK4t cmxjXHBnYnJkcmhlYWRccGdi urKxYl9xmErpQBV1KUxjH0xz jB7vNxJ9OGumK0oqeY7xUAe6 NOtoeEK5ECAxmQ6tNM7ueige d9hqWtRhNQ9grjvce6bpCyFm MA3gpkd1i1mpZuGjBK8talfz u1xgQzBdDDpcFVSurkdaEITm e0RxitdfVULcs1GyW0DkmZaq E88zfAzkI41iHXVzsWcucC0c zTkgnL9vQtKzCiHoIKqxiTsw bGFpblxmMVxmczIwXGxhbmcx BYUoFXgnD9haXpFnUOUugFav XIbbm5HsFESfALEnChAcGT2b L2aTRxENKKWAFTuNNRbdXDKH IUQVV3OGOAaUETMDTIsRXQnp WpFVQMXKY4INUCm6HEXpuiNo HQLJNPhUWVU3VPz4KLVMCFrp AGNtTC2rJ8gCAVHlC3YYXCHO PO2RWDWRFYjKCYOVAlFDJx0X YXljURAWG5JWGV2ETOYnHEEC ZQJKHbGDEgUNZFQAEFNKYX8U NjQRG58jIDvADw0HB4WZIHhH QURFIDIvNFxwYXIgICAgLSBO QgBCZQZSPbxHGSROZBJYY6XH UyBTRUVOXHBhciAgICAtIFZB V3OCAHJNNXiWVqSPIM7VDNQL DMYXDwLmpADzVFViRB8wX8jI APMlOrZKHCEYKtNFK7yGLeUS JrDKMG3DCMUmhhFbCZXgCL1A XFDZOcNPXOOEU5bXLY4JSFKS DMVED1hTSQCNOISFUtXOFTIA YH8pjUWbLUTjSZPOMhUNZKYr MJ2LHFIDFGNLMXBNUHkOGkQA TSCSJX1ZHWLJQLTVNZUOATjD ASFVKpFbQF0MNP9EElnWUmxG NVQbodptSCAsDs9rEgpRGOZi QlDHWo9DKPEJPM7GPVYKIKgS VVEXJW0TTEUGDUNYOEFNNTHO ZL9ERuqmFZBwGH2jCE8ITpLi NzDEGCzLHViFASUPVG9KNBAY ICgwLzkpXHBhciAgLSAgTkVH SKDTKgPdLb7QHZ8PNRcNAmRF L5cyoMOqDQMyBTQSMJBMS35H FK3RRNIdanLeJHZCFMYFXS8J UFRJQyBSRVBPUlRccGFyfXtc pwBfMPotc4BhZWdwQCHjYE0t zLozOMJyQX8kLCChO8jqqV8v trz3QrUmZNEqWiB7FXFfryI8 Koc3WVLeUDhrf2gcx7WgFHTu FIs8eBmkHvYoJOWvq3shwgMk HxNqBMDxPFVxCBKhmCKnE962 d3sdj4ixpoIfgCW1MCFeQUS1 RArjkePtbvI2KMvuvDOlTtG9 IDtccmVkMFxncmVlbjBcYmx1 FQApY849FIX4cPcgp4evTCH8 HUCjTBSeEvZwCp8iiKIaP927 TITyFLOCNOQosBs5NEJgmgOw fnIdkMQQy167R798h0zkKBUr kvBarWiEdqovf2vaX112EVEl cGVydzEyMjQwXHBhcGVyaDE1 XUCgJP8knmzxVEtxCJqeCGWj elW7WCLvbVUxC4XlADKgDQ2a vmsvNHV2YHixYYUmODI5ZpUm RUMdd2Krqud4PqShge9swt70 VUE4t4IpsXyvPFR1CMS5WzWs Al6ppJYqZGGgHX6fNvIiaVMi BDAfos81iPupUIxcSQQ9AYKt kkVop7Llu6uqPkIcljOxM5ml I9CmTNJaMQTxFEYlHmUsqtPv h0Zrw4HvuSMgoKx5n7qqQLDq ZQOyqKtxr8qyXVW1OCQlyPWx Q2zlzJ9wAULfVK1twxkur0as HDieNDtjLUEcxIM5krX3UNGq xCOaZ2EnbC9sBQTmZWswMWDd vbq6ClSkIo4slOXkqLiaPMjt YmtwYWdlXHBnbmNvbnRccGdu ZGVjXHBsYWluXHBsYWluXGYw XGZzMjRccWxcbGFuZzEwMzNc aGljaFxmMVxkYmNoXGYxXGxv S3mhFdJoZrWyQry0ITYlgHVr CWFxVgi1JPUvsGWyRWENfUip vH1bHOLolYgqtJ1hrQW0JIVt tvBadEZSyW7gUDLTzA6wXgM6 WzJdJfP0ZVDeQVlurZZduX4= SYNOPTIC REPORT (test KIDNEY: Nephrectomy code = 71) (Kidney - All Specimens) 8th Edition - Protocol posted: 04/14/2019 SPECIMEN Procedure: Radical nephrectomy Specimen Laterality: Right TUMOR Tumor Site: Middle 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 Histologic Grade: G2: Nucleoli conspicuous and eosinophilic at 400x magnification, visible but not prominent at 100x magnification Tumor Size: Greatest Dimension (Centimeters): 4.5 cm Additional Dimension (Centimeters): 3.3 cm Additional Dimension (Centimeters): 2.3 cm Tumor Focality: Unifocal Tumor Extension: Tumor extension into renal sinus Sarcomatoid Features: Not identified Rhabdoid Features: Not identified Tumor Necrosis: Not identified Lymphovascular Invasion: Present MARGINS Margins: Uninvolved by invasive carcinoma LYMPH NODES Number of Lymph Nodes Involved: 0 Number of Lymph Nodes Examined: 9 PATHOLOGIC STAGE CLASSIFICATION (pTNM, AJCC 8th Edition) Primary Tumor (pT): pT3a Regional Lymph Nodes (pN): pN0 ADDITIONAL FINDINGS Pathologic Findings in Nonneoplastic Kidney: None identified CPT Code(s) (test b5haaNXdSIKvuGOuKeTyNYPr code = 3357) TVIyn8qxMVMqtZDaMlPbSkUe KqBxZiilfSHhSXGtFcHcx1at i427lKXqi4slEKNoPfT8jBDv UKKxuKPhQ363b7ilh3wmhjBv sVF2DMXwAZA3YXwxbkBbonG7 WIciqQKqNrP9WMkhyiNmGVws qiSgjzNsJiz1MFQbK866JPL4 hCngt8wpVTX0QBNsXGRsGuYi Jk3bnAKlU384WBIiCSRTHMMa tEh5XVBcixEzcwWcjJFKt892 D524x5jgDLFfppNppVmJfsev e8cxP936SUYyrXVvhkNzLfEe NUFjdEIokHH7JVCnGG5hikhi ZmGwKZ6hzgckVlOyXL3dknx3 EtJjKA0xdonfKzLqBWyiBPSo cbilQTIwz7XbfxnjZD8iD8Up d1N2mJ7uqNKwHHJusIAuFiMu YTVhpg6hqBRhKFckq9ZnANI6 cuN8yJYxmMSsJMSwIO42Enmt c1UeOzajJHU7GHCpkoHrj4Ax b5nwGzKmihGuV1jfQ5PgSIWj AXNeUYObIjGrzeWgf0Xij6Au bIHycPm7e0jnGFOvBUGmrVxt l5aoBLS2BFEvX4I8zSQum8iw QCniRWOsdNV8krcsKJqaEIWo skB9dkjhEPqfELHheVB4ldpb FQytWKSsSyZ5ztcjUWrwPJVd FTN9XSntr245RDF1FXvwWunh YWdlXHBnbmNvbnRccGduZGVj XHBsYWluXHBsYWluXGYwXGZz BlEchCzpmBdbhU6gZiDkExRk HMoyNW3uZQVdI3focDGgVBQw GOPuR1xuGoOvlQ3jrOugLWiq vdNtTLa3JvT8YPdvZwobRXR4 CLINICAL HISTORY w2tuqZFfYZNaeEArOxRrCPWi (test code = 3356) ZSWcs8yyBFPbiWVgFwFoUkGc MkJsMybclECkLUOtKwCvv7xg t072fJHdh3vxRSZiCxU1bGUm JSYveHNgU628TCPjCXpga9wt p7BfQYTmfRCut6V0ORWCfqgl uRc5oWtiR81nt3Z9VquxH5sv HUFnUTQyT4JoRQ2nBLYuRir1 AVZ4RIV5GPZnRFIlG5QlZR4n XTSqvZSwYGm9o5pojGgtLNUt FBU6r3joCGoacvAmQI1mro2n uVa9b3izziCrMAQjQYTvaERU OEPdP5RzgVqiWz8hkKv4qNgy ZibcMEG4Mqg7UQ7pth63yet3 hUujOACjvphgHhM4DEdiSBMr scfqDCf7WYfnCIObxFluAGdu YXJncjcyMFxtYXJndDcyMFxt LRHfEyboWQuyACPiCYV4FDkf t567PJD0MVewi1ayc2nzoMRr Qrs3AYMbXaRbJoolDQdlx8Xj r5ziCRYqcf1kAGO8bWTzxAwv j1O6tCQcUGTnjVLndlSmFTLs PeD7MIdpVW8xyt18PDUuXHI0 ys9gfVBefAghfwSeoDCgTSpd M1AtHTQlq835KCGdZ3FcFOUk t5S8gsLsMeWeMBDthOT9rnN4 MRJbXIz3iXKlguZ3npTdcIYr P3esuM15QpRboGAhX9TvhW80 GcPynXHuG6PfuF26TkKiyIAl D4EboZ48TvBkmSRqYJBqjLLa Xp7ceHItiRUut5ZjfSEhJZdy C14zn914PQQxrtXmB7pjdEXp bqfspRKnzgpkJOmqxeP7JCs5 cnBhclxxbFxwbGFpblxmMVxm jkJyPEdfzmevUFLqHXwmL8mz ZuKbXSMqvPpvUHpip0AvMCCk XGZzMjAgUmVuYWwgbWFzcyBc cGFyfQ== SPECIMEN SOURCE (test o8qvzSTnSODlqVXmYdZeFTWq code = 3377) YCSwp0zcNWEiyBWhElXzDzXe EcLjUeqihMPpRTDkVgClj9hi g054uLMgl8sfFVVlQwQ0fROg HVYmpNBbC626s6ujm0rfrcIt sVR3AQKqGES7DNquzhQvfaJ9 DHugtDDcUbC6WHzbjsUtTNzx pjRyfdFdEmw2QLGaT944GTM7 iXfab1vbMSH7DINrILByJwWe Mm0lwTVhJ869HQXrPIAXLUNd wDw7ITZhvtIxzuVlzJIAn280 A836n6okDCZzbpKmeHcPzjiq e5wxB083ETZlxQVdbjFmKxTr QSHreULsnIJ2CECcNV0kppvf NwCvNC4pexkfSgZwFZ1wtiu6 XbAyMC8syryoCjYmGMmnZPVn iovmXFJah6NtvapnNQ8oC2Ow k7J9iM2mjSFkTOZyaVVtCmOd ZSZjid0dwGFwLClyo0AdNVY0 dcU8mVQesHUwAADuDD50Ohsp e9ZxLljjUWC2ZPRvthAxy3Hk l9bbZxVzqvJsZ2qoJ9EeZPSd KOHvJETrBaNmidUsu2Avc7Wa oJDyaZx7q4vhAZVfNLVdoCej x0caWCB9MPHnC3J9hZLbk4jz GAxrWXJlnQJ2vhziWJacWTBd qcV0ditzYWxnZPQkwON0tutx QSbzKPOvRuB2gsovWBcuWOBr XDQ6FYnpy080KYE7LZzkMyvb YWdlXHBnbmNvbnRccGduZGVj XHBsYWluXHBsYWluXGYwXGZz JzSrdIexuCribD8aAuOfGvJe WIhyRZ2fFYNvW6arpOEjUCGa HTQpN3tyHcWydL6ryTvcWErv czIwIEEuICBLaWRuZXksIHJp B2b6AFLhrcIPEoHzYapawRTr rECbrMCeqhKwfEIwgP4okLWn e5Mzw4meJDQ8 GROSS DESCRIPTION q4nnmSTxYNMdjZLwJlHbKFFd (test code = 3366) ZAUpy4kxSTUqgMVsUtLjPjJc NmHaSonfxUHcSOOmGbKcg4em q474mWYdk6syHZByLnX2iSOm CYVvvNHmV714FLOkWAqhc1rw t1QqVHCynCCmd0M1KABVggcf iJb8rSeeK42xn9K6ImflR1xf WTSlSRZlR0RpBH1nYVLdRuj9 YBX0NWP5UWNjVPAsF5FrEI6b BQXqiPNzCQz7r2udbQqcSFGy ZTD5n6dfOIodxiIoDZ4quj8n fQd7c5ugoaXvPOGoHAGhjYCK KZBnY7HzjOqhGr5xgLq4iKfb RdbuPGD9Ued9XG0jlj19igt1 pWrcXAAndxfbZnM8JOnqFJNb pahoVVo6LJqcPHXatTfhSVed YXJncjcyMFxtYXJndDcyMFxt HUTaFjqfOXubEFDnPYV9XYts r630FPK5SYqsk7mxi6thaHWw Rwk2NHDoUlBnWyppCPphe4Kx q1vzVGOcch2gLYR3yMXljDka g3W5pTZnFWSgeHGujrFjZZKt SsT3ZZbxKW6ztf98XHRrYDR2 ux8plDIzrYzlzyLhmXEjWYhh H5LrYPPnw360ZUHeF7NbUBSo w8E4zuNhEyVwONPifQO7azF9 SFHgMEy0vOTsmpF0nwHohANs M4mofH97EyHgqCLmI5VkpO09 GlCirHSqL1XaaW51EpZaaHSs H0IgbK06UiQdoRDzNQOxyGMr Nf3syWJkiPByi4EbyPRmXMck J89yc004KDNaaaWqN7zppXIz qcatzBXydmwwTRvhhgX0UHBl XHBsYWluXGYxXGZzMjBcbGFu ZzEwMzNcaGljaFxmMVxkYmNo TZCnSOzqN9sdWeOiLaQoZZWC LiBSZWNlaXZlZCBmcmVzaCBs JSRsjZviOZB9mFTfKTOyNKSa IORdYZ51TUacSHEwguYtZEwu bWVkaWNhbCByZWNvcmQgbnVt BeNcOCLqXVGhz7mszlV5BUDm lZqviVMqrQQjEBV9UtAbYlzk ApCqeDTfJT58IZvkBp64UJDl BNUaQKebVBbojtJqsKCnS6Wo bXkuICBUaGUgdXJldGVyIGlz QDyuXFIpdYCifxXnWI7tjWbv RH2vDDStCbSkcOAgpgRnaNUw CPLvkffxOL3dBKZvCOTdeKAn TAnglCLiITJtZIJ3XOJiNqI6 MRYrTrEbvJ4rZRLjGRUxTRRd wuXoFOhiAU3sPZmuPZNty7Ls qN5aLXNzWBDqAKzdUAMxGPXz aG2fNU80BZGqp2MohDLkUsAc xGZvJ0zmNKErNFUcxsUvwZDi YyBmYXQuXHBhclxwYXIgVGhl YXumQU7mkDBgITWhzSwnZYns ROPlrcnoMJ9yGYEfo743pV8j WLufig07PXlzEALhm1YzCVWq ybDqltWmF7TuIXCMhENye7Yk B5vkPK2ffYYvx3YuidBfWNKb MUYdewFovSErWDuilGcwY4zx D5Jda3RteSGuJPnrN35gSVYv IHllbGxvdywgcmVkLXRhbiwg e88myELxYK8cACI3c1XjXhJt JFFlLZhgAVQnVHHnzUYnc6qw EG2lXJEqFZYpu6N8OIHjk7Uw EYUcCTC2FR5vDAN6skyaYbQ9 KyYmzRHfGmUwlUWhEbWwF91p ICBUaGUgbWFzcyBpcyAzLjUg F17mAqCbhXA0qZXwniJeMLna wgNbpgImGJOkaM4eGOLocLEj CIBqMYDrCH7fzYBccN48qoJy lvIit6liscI6FHKfpEP8xYGu NVTkMKFoa3AiKK6ndJKgbjCk gVCbEGVjQLRaDT4ljHU6FLnb LzFaYHowIH2an8DbZMZeJPBg rfVlg3OeyIh0OX7uV9WpaKsn XRZmSOOxQL7zydClKPaxZb4s INTyLSYrVS7inU5eqytmufFg GMmsgBScXJ6uxTdvADSiuzGu fS8tGWPbKDXvktSss45np2Tl DfXkYUlxHSMajtKlI1MyYR5e CVXcfLDduUKlwH3tkZqttmLu ylD3ZWtdREIomWQyC6T6QQXs KX7xUB3kCPF7elDgJTUwZBPj wW5mFRv8aABrNU7kTSBiIJLk NOGnf7YdkIBihuKeNpryFA6m IDGibSYym6OabNB0mDHdZOJb A4Bke04pPBYqKPPntTQsnSX7 OLMsHCPdjuwqMEGsWZ0gVXEg XJD7WNKnxnRRwlYcoyriBzEg EJawifRznntjWUOuAwx8MOwn B2T2UUFet7UrJwVuEYYsMtYl kFVqkR2hwoniAXAhbTLqWJIj O0Ytm98bN71nCTkzmZYpGPNq SfNLjwW0FAFbJX5qSVJdj9I9 sDJjEW0ynknphbYdUGSrXYMl M3NhqRBrAOCyKWXdDgSTGUFo ZRYoQEDqaU2vMT5uNMVmlqFb VSHwmtAjQUNaktKNEK4FHjtj YLYzyvC0weKbST8rmPRokM67 b2pnEFZjKDg9BY2sl0RgsU7e i4eyjiY4CGStySC1uXXmTU3u AHqypt51FMggGRWrq4RdNGpu WRTwXVG7PlVIQXXwRJzspRqi wCVii9QonJYrXDJ5raU4afrz am6clwOrWKTqndFcAFGmckDd R7n1rMVdcJKzROHyDDB7KO1f s8Ryg5n2lBJrAF6ovnAdLGap IHRvIHJlbmFsIHNpbnVzXHBh erWMEZZaEuZCwiyrnj9lgsTf NNqkKB4djLbaWRLwoDIpCFUc CCPfU7CfjmJzMOGkVBWjUAai YmVsbGVkIHdpdGggdGhlIHBh bSniruThB7O5zqXwBI3nKZEy BTWlI5QpVEFdG79lWYAobI5a CQAbYQ5sDJAoaCcpbAAvPQMg fM1sIQNrLRk0uXBxSM0zOYMh AgAptuQbQZUcKHS1DDHdtZXz YjSgQ60tuCFkWLk5hNDkQSTw bxOaj81in9KmNCXpyD2wESL0 aOBoqHBcMDMCkQEnvW6gaoFm iwSmBNWzHAocmOSdWVO9hH6d QYIpcJ8fitO4MUSpRK71xCWx eZdcSIPwru2dsA5aVKo8yYZq LI3lGSFqUYUfwslcdhhgNN4r VDXrBQGjzB0xUESrPIVjlVGq lT4nlaWnoxLmfyXgsaCgeURs gLXmqED3ESAuQNUylbtrPLYo M4HyiMnsmtYdt7RdZoddLBPj LhQtDfL7CBOuqG2xe1zyzMEo dTtviNipik8nOZQvaMJzX9Dl ROJmfjChEKWzVJDwb1SgdLEp JMXracFCCB5HYkXnKRo3wSIx ZO5iPBZgAJHbz3RswPRuPPFq pmHVHdreTxXcpcRmQ5PogKcn wCyzph0gIYNabTZqWTR7IuYR XT1upO1vLQMyi3Qeq4XfG4fc FE5rqHWpQOAmmoVKwOWng4Mp IEdyYXVuLCBNSFMsIFBBIChB C1IUZIbtFYVipYRgGZWobu0= MICROSCOPIC n9zkqFGfGVEitYVbYvTcWVYu DESCRIPTION (test ONMre7luSHFmxVCnDhUhPxAh code = 3371) QrRmMbqkgTCjHCXgCrSve5wk x780nHLtk4lpVSXrVlH9gOLe RDZufORyH386f6dex2dcnaFg jSZ3DZOpATI5ODpcmlOsosT9 WKafjRBzPbB5FUwynjHrVWtc zxLiuhQdDzp3DNAaD665FOB9 cPowl3fdMMX3PGCeACOoWaRq Xa5wkYQtD414PFLvWAOEIQCy iVa1VHBeazVetpFvaZSSu520 Y484b8nfRPHxzxTypLtHkpbe d9acT197XXEmsMXaumNiSlJg SRBjzHNmmEI2LTKaHG0skiac FjLqEV2srtbuQdVoFJ4noas4 LhLxRD9hpazsCxGzGUwoBLPq mvdiIWGpr7UfaudwRK0sO3Rv b0A9zI0huBJkNXBujQApXgAy DZQtpv0iyFYjPSlle5XuZTU3 wkL0sLWfrZFcYNAhOW42Mfzx u3UyWiasQWS3YRIkxcHpq9Zx t6sgKiImrfAjI5rxW0QeLQIh DHIgKAYsNcLrfbSjg7Tvn7Oa jNUkbPf1y3tnPNCoODCnkLol q6kmKQZ8WLYnH0G2jAMfb3av HDrbAIDnuJB0iqudKEbsYHZu igN5lhfxHBvvMPNzyHB1ekyn AZeoXZPbQiJ9uonrESaeIETc LFK8XQnfm662GXG8HJxoZaju YWdlXHBnbmNvbnRccGduZGVj XHBsYWluXHBsYWluXGYwXGZz ZgSbbUipaEraeZ4uRsGrPlKs QUckQX5kQTTsO5cgoCFqUTMf KDUbP1ljBsHmhM8juDmbCAcy uhQyQFVGAyUWOx1XTSxaCHV9 [facility] [id number] 13:22:00Surgical Pathology Report Case: [id number] Authorizing Provider: Colten Ramos MD Collected: 02/08/2020 12:04 PM Ordering Location: [facility] Received: 02/08/2020 01:50 PM SERVICES Pathologist: Karoline Flores MD Specimens: A) -Kidney, Right B) - Lymph Node, RIGHT PERITONEAL LYMPH NODES A. KIDNEY, RIGHT, LAPAROSCOPIC RADICAL NEPHRECTOMY: - WEIGHT: 774 GM - CLEAR CELL RENAL CELL CARCINOMA, MEASURING 4.5 CM IN GREATEST DIMENSION, WHO/ISUP GRADE 2/4 - NO DEFINITE NECROSIS SEEN - VASCULAR INVASION PRESENT - SINUS FAT INVASION PRESENT - NO SARCOMATOID OR RHABDOID FEATURES SEEN - URETER AND THE VASCULAR MARGINS AT THE HILUM ARE UNREMARKABLEB. RIGHT RETROPERITONEAL LYMPH NODES, DISSECTION: - NINE BENIGN LYMPH NODES (0/9) - NEGATIVE FOR MALIGNANCY - SEE COMMENT- SEE SYNOPTIC REPORT Signing Pathologist Direct Phone Line: [phone] signed by Karoline Flores MD on 02/14/2020 at 1:22 PMKIDNEY: Nephrectomy (Kidney - All Specimens)8th Edition - Protocol posted: 04/14/2019SPECIMEN Procedure: Radical nephrectomy Specimen Laterality: Right TUMOR Tumor Site: Middle 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 Histologic Grade: G2: Nucleoli conspicuous and eosinophilic at 400x magnification, visible but not prominent at 100x magnification Tumor Size: Greatest Dimension (Centimeters): 4.5 cm Additional Dimension (Centimeters): 3.3 cm Additional Dimension (Centimeters): 2.3 cm Tumor Focality: Unifocal Tumor Extension: Tumor extension into renal sinus Sarcomatoid Features: Not identified Rhabdoid Features: Not identified Tumor Necrosis: Not identified Lymphovascular Invasion: Present MARGINS Margins: Uninvolved by invasive carcinoma LYMPH NODES Number of Lymph Nodes Involved: 0 Number of Lymph Nodes Examined: 9 PATHOLOGIC STAGE CLASSIFICATION (pTNM, AJCC 8th Edition) Primary Tumor (pT): pT3a Regional Lymph Nodes (pN): pN0 ADDITIONAL FINDINGS Pathologic Findings in Nonneoplastic Kidney: None identified 99160 X 2Renal mass A. Kidney, rightB. Right peritoneal lymph nodesA. Received fresh labelled with the patient's name, medical record number and "kidney, right" is a 774 g, 24 x 14.5 x 7.5 cm radical nephrectomy. The ureter is 7.5 cm in length and 0.3 cm in diameter, and the kidney is 11.5 x 6.7 x 5.7 cm. The adrenal gland is absent. There is an abundant amount of attached perinephric fat.The kidney capsule is pink and smooth. Gerota's fascia is intact. The specimen is opened to reveal a well-circumscribed, wray yellow, red-branch, solid and cystic mass in the midpole of the posterior aspect measuring 4.5 x 3.3 x 2.3 cm. The mass is 3.5 cm fromthe renal vein margin, abuts the renal sinus and kidney capsule, and does not involve the renal vein. The mass appears focally necrotic and hemorrhagic. The remaining renal parenchyma is pink-red andsmooth. The cortical medullary junction is well demarcated and measures 0.9 cm. Lymph nodes are not identified. Genomics Scientist sections are submitted.Ink code:Green: Renal veinBlue: Outer surface ofspecimenSection code:A1: Ureter and vascular margins, en faceA2-A3: Mass to vein and renal sinusA4-A7: Mass to renal sinusA8: Mass to kidney capsule and Gerota's fasciaA 9: Mass with hemorrhage to uninvolved renal parenchymaA 10: Mass with hemorrhage to renal sinusA 11: Uninvolved kidneyB. Received fresh labelled with the patient's name, medical record number and "right peritoneal lymph nodes" is a 4.5 x 3 x 1.5 cm irregular portion of adipose tissue. Specimen is serially sectioned to reveal multiple branch-pink lymph nodes ranging 0.2-2.1 cm. The specimen is entirely submitted.Section code:B1-B4: 1possible lymph node bisected in each cassetteB5- B6 1 lymph node, bisectedB7: 2 intact lymph nodesB8:Remainder of specimenChelsea ADITHYA Buckner, JEREMY (ASC)[facility] metabolic [id number] 04:41:00 Test Item Value Reference Range Interpretation Comments Sodium (test code = 140 meq/L 037-186 7842-2) Potassium (test code = 3.9 meq/L 3.5-5.1 2823-3) Chloride (test code = 112 meq/L 98-107 H 2075-0) CO2 (test code = 23 meq/L 22-29 2028-9) BUN (test code = 12 mg/dL 7-21 3094-0) Creatinine (test code 1.09 mg/dL 0.57-1.25 = 2160-0) Glucose (test code = 107 mg/dL 70-105 H 2345-7) Calcium (test code = 7.9 mg/dL 8.4-10.2 L 86662-1) EGFR (test code = 51 mL/min/1.73 sq [place] [address]-0) NOT ACCURATE CREATININE CLEARANCE IN PREDICTING GLOMERULAR FILTRATION RATE . ESTIMATED GFR I S NOT APPLICABLE FOR DIALYSIS PATIENTS. ALEX (test code = ALEX) 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 ID - YOJANA B Lab Interpretation Abnormal (test code = 19913-9) [facility]OLIC [id number] 04:41:00 Test Item Value Reference Range Interpretation Comments SODIUM (BEAKER) 140 meq/L 136-145 (test code = 381) POTASSIUM (BEAKER) 3.9 meq/L 3.5-5.1 (test code = 379) CHLORIDE (BEAKER) 112 meq/L 98-107 H (test code = 382) CO2 (BEAKER) (test 23 meq/L 22-29 code = 355) BLOOD UREA NITROGEN 12 mg/dL 7-21 (BEAKER) (test code = 354) CREATININE (BEAKER) 1.09 mg/dL 0.57-1.25 (test code = 358) GLUCOSE RANDOM 107 mg/dL 70-105 H (BEAKER) (test code = 652) CALCIUM (BEAKER) 7.9 mg/dL 8.4-10.2 L (test code = 697) EGFR (SHANONAKER) (test 51 mL/min/1.73 ESTIMA JOSÉ MIGUEL GFR IS code = 1092) sq m NOT ACCURATE CREATININE CLEARANCE IN PREDICTING GLOMERULAR FILTRATION RATE . ESTIMATED GFR I S NOT APPLICABLE FOR DIALYSIS PATIEN TS. 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 ID - YOJANA BCBC with platelet count + automated [id number] 04:38:00 Test Item Value Reference Range Interpretation Comments WBC (test code = 6690-2) 14.4 3.5- 10.5 K/L H RBC (test code = 789-8) 4.03 3.93- 5.22 M/L MCHC (test code = 786-4) 32.7 32.2- 35.5 GM/DL Hematocrit (test code = 4544-3) 37.9 % 34.1-44.9 MCV (test code = 787-2) 94.0 fL 79.4-94.8 MCH (test code = 785-6) 30.8 pg 25.6-32.2 RDW (test code = 788-0) 13.1 % 11.7-14.4 Platelets (test code = 777-3) 296 150- 450 K/CU MM MPV (test code = 19500-8) 9.1 fL 9.4-12.3 L nRBC (test code = 413) 0 0- 0 /100 WBC % Neutros (test code = 429) 83 % % Lymphs (test code = 430) 9 % % Monos (test code = 431) 7 % % Eos (test code = 432) 0 % % Baso (test code = 437) 0 % # Neutros (test code = 670) 11.89 1.56- 6.13 K/L H # Lymphs (test code = 414) 1.31 1.18- 3.74 K/L # Monos (test code = 415) 1.06 0.24- 0.36 K/L H # Eos (test code = 416) 0.00 0.04- 0.36 K/L L # Baso (test code = 417) 0.03 0.01- 0.08 K/L Immature Granulocytes-Relative 0 % 0-1 (test code = 2801) Lab Interpretation (test code = Abnormal 34625-0) [facility] W/PLT COUNT & AUTO [id number] 04:38:00 Test Item Value Reference Range Interpretation Comments WHITE BLOOD CELL COUNT (BEAKER) 14.4 K/ L 3.5-10.5 H (test code = 775) RED BLOOD CELL COUNT (BEAKER) 4.03 M/ L 3.93-5.22 (test code = 761) HEMOGLOBIN (BEAKER) (test code = 12.4 GM/DL 11.2-15.7 410) HEMATOCRIT (BEAKER) (test code = 37.9 % 34.1-44.9 411) MEAN CORPUSCULAR VOLUME (BEAKER) 94.0 fL 79.4-94.8 (test code = 753) MEAN CORPUSCULAR HEMOGLOBIN 30.8 pg 25.6-32.2 (BEAKER) (test code = 751) MEAN CORPUSCULAR HEMOGLOBIN CONC 32.7 GM/DL 32.2-35.5 (BEAKER) (test code = 752) RED CELL DISTRIBUTION WIDTH 13.1 % 11.7-14.4 (BEAKER) (test code = 412) PLATELET COUNT (BEAKER) (test 296 K/CU MM 150-450 code = 756) MEAN PLATELET VOLUME (BEAKER) 9.1 fL 9.4-12.3 L (test code = 754) NUCLEATED RED BLOOD CELLS 0 /100 WBC 0-0 (BEAKER) (test code = 413) NEUTROPHILS RELATIVE PERCENT 83 % (BEAKER) (test code = 429) LYMPHOCYTES RELATIVE PERCENT 9 % (BEAKER) (test code = 430) MONOCYTES RELATIVE PERCENT 7 % (BEAKER) (test code = 431) EOSINOPHILS RELATIVE PERCENT 0 % (BEAKER) (test code = 432) BASOPHILS RELATIVE PERCENT 0 % (BEAKER) (test code = 437) NEUTROPHILS ABSOLUTE COUNT 11.89 K/ L 1.56-6.13 H (BEAKER) (test code = 670) LYMPHOCYTES ABSOLUTE COUNT 1.31 K/ L 1.18-3.74 (BEAKER) (test code = 414) MONOCYTES ABSOLUTE COUNT (BEAKER) 1.06 K/ L 0.24-0.36 H (test code = 415) EOSINOPHILS ABSOLUTE COUNT 0.00 K/ L 0.04-0.36 L (BEAKER) (test code = 416) BASOPHILS ABSOLUTE COUNT (BEAKER) 0.03 K/ L 0.01-0.08 (test code = 417) IMMATURE GRANULOCYTES-RELATIVE 0 % 0-1 PERCENT (BEAKER) (test code = 2801) BASIC METABOLIC [id number] 19:11:00 Test Item Value Reference Range Interpretation Comments SODIUM (BEAKER) 142 meq/L 136-145 (test code = 381) POTASSIUM (BEAKER) 4.4 meq/L 3.5-5.1 Specimen slightly (test code = 379) hemolyzed CHLORIDE (BEAKER) 111 meq/L 98-107 H (test code = 382) CO2 (BEAKER) (test 19 meq/L 22-29 L code = 355) BLOOD UREA NITROGEN 11 mg/dL 7-21 (BEAKER) (test code = 354) CREATININE (BEAKER) 1.27 mg/dL 0.57-1.25 H Specimen slightly (test code = 358) hemolyzed GLUCOSE RANDOM 157 mg/dL 70-105 H (BEAKER) (test code = 652) CALCIUM (BEAKER) 8.4 mg/dL 8.4-10.2 (test code = 697) EGFR (BEAKER) (test 42 mL/min/1.73 ESTIMA JOSÉ MIGUEL GFR IS code = 1092) sq m NOT ACCURATE CREATININE CLEARANCE IN PREDICTING GLOMERULAR FILTRATION RATE . ESTIMATED GFR I S NOT APPLICABLE FOR DIALYSIS PATIEN TS. 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 ID - BSCBC W/PLT COUNT & AUTO [id number] 13:46:00 Test Item Value Reference Range Interpretation Comments WHITE BLOOD CELL COUNT (BEAKER) 16.6 K/ L 3.5-10.5 H (test code = 775) RED BLOOD CELL COUNT (BEAKER) 4.32 M/ L 3.93-5.22 (test code = 761) HEMOGLOBIN (BEAKER) (test code = 12.9 GM/DL 11.2-15.7 410) HEMATOCRIT (BEAKER) (test code = 40.3 % 34.1-44.9 411) MEAN CORPUSCULAR VOLUME (BEAKER) 93.3 fL 79.4-94.8 (test code = 753) MEAN CORPUSCULAR HEMOGLOBIN 29.9 pg 25.6-32.2 (BEAKER) (test code = 751) MEAN CORPUSCULAR HEMOGLOBIN CONC 32.0 GM/DL 32.2-35.5 L (BEAKER) (test code = 752) RED CELL DISTRIBUTION WIDTH 12.6 % 11.7-14.4 (BEAKER) (test code = 412) PLATELET COUNT (BEAKER) (test 315 K/CU MM 150-450 code = 756) MEAN PLATELET VOLUME (BEAKER) 8.9 fL 9.4-12.3 L (test code = 754) NUCLEATED RED BLOOD CELLS 0 /100 WBC 0-0 (BEAKER) (test code = 413) NEUTROPHILS RELATIVE PERCENT 92 % (BEAKER) (test code = 429) LYMPHOCYTES RELATIVE PERCENT 5 % (BEAKER) (test code = 430) MONOCYTES RELATIVE PERCENT 2 % (BEAKER) (test code = 431) EOSINOPHILS RELATIVE PERCENT 0 % (BEAKER) (test code = 432) BASOPHILS RELATIVE PERCENT 0 % (BEAKER) (test code = 437) NEUTROPHILS ABSOLUTE COUNT 15.39 K/ L 1.56-6.13 H (BEAKER) (test code = 670) LYMPHOCYTES ABSOLUTE COUNT 0.75 K/ L 1.18-3.74 L (BEAKER) (test code = 414) MONOCYTES ABSOLUTE COUNT (BEAKER) 0.36 K/ L 0.24-0.36 (test code = 415) EOSINOPHILS ABSOLUTE COUNT 0.01 K/ L 0.04-0.36 L (BEAKER) (test code = 416) BASOPHILS ABSOLUTE COUNT (BEAKER) 0.05 K/ L 0.01-0.08 (test code = 417) IMMATURE GRANULOCYTES-RELATIVE 1 % 0-1 PERCENT (BEAKER) (test code = 2801) ABORH, [id number] 06:53:00 Test Item Value Reference Range Interpretation Comments ABO Grouping (test code = 2588) O Rh Factor (test code = 2589) [facility] [id number] 06:52:00 Test Item Value Reference Range Interpretation Comments ABO/RH AUTOMATED (BEAKER) (test O POSITIVE code = 2260) Ab Scrn (test code = 890-4) [facility]2020-02-06 09:30:00 Test Item Value Reference Range Interpretation Comments SARS-COV2/RT-PCR (test code = Negative Not Detected, Negative 60525-0) SARS-COV-2 PERFORMING LAB CPL (test code = 28943-6) [facility]2020-02-06 09:30:00 Test Item Value Reference Range Interpretation Comments SARS-COV2/RT-PCR (test code = Negative Not Detected, Negative 4460109) SARS-COV-2 PERFORMING LAB CPL (test code = 0065070) RAD, CHEST, 2 [id number] 11:51:00Reason for Exam:->Renal mass, right FINAL REPORT TECHNIQUE: Frontal and lateral chest radiographs dated 02/04/2020. CLINICAL HISTORY: Right renal mass COMPARISON STUDY: None FINDINGS: Scarring/atelectasis is seen in the mid left lung. Lungs are otherwise clear. No pleural effusion or pneumothorax. Cardiomediastinal silhouette is normal in size. No pulmonary edema. Bones are osteopenic. IMPRESSION: Scarring/atelectasis in the mid left lung otherwise unremarkable. Signed: Cm [place] Verified Date/Time: 02/04/2020 11:51:56 Reading Location: [address] Radiology Reading Room XR Chest 2 Views 2020-02-04 11:51:00Interface, External Ris In - 02/04/2020 11:54 AM CDTFINAL REPORT TECHNIQUE: Frontal and lateral chest radiographs dated 02/04/2020. CLINICAL HISTORY: Right renal mass COMPARISON STUDY: None FINDINGS: Scarring/atelectasis is seen in the mid left lung. Lungs are otherwise clear. No pleural effusion or pneumothorax. Cardiomediastinal silhouette is normal in size. No pulmonary edema. Bones are osteopenic. IMPRESSION: Scarring/atelectasis in the mid left lung otherwise unremarkable. Signed: Cm Young MDReport Verified Date/Time: 02/04/2020 11:51:56 Reading Location: [address] Radiology [facility], [id number] 15:21:00Reason for exam:->eval right hydro, s/p R ureteroscopy 01/27 with inadvertent stent removal, presented with n/v. Also please eval for ureteral jets.FINAL REPORT Renal ultrasound dated 01/29/2020 Comment: Real-time transabdominal renal ultrasound was performed.Right kidney measures 11 x 5.9 x 4.7 cm. Left kidney measures 11.2 x 4.5 x 4.2 cm. Right renal cortex measures 1.0 cm. Left renal cortex measures 0.7 cm. Echogenicity of both renal parenchyma is normal. No hydronephrosis, solid or cystic mass seen. The urinary bladder is contracted. Doppler ultrasound demonstrates patent main renal artery and vein bilaterally. Impression: Unremarkable renal ultrasound without hydronephrosis. Signed: Saira Cantrell Verified Date/Time: 01/29/2020 15:21:36 Reading Location: [address] Ortho Consult Reading Room US renal [id number] 15:21:00Interface, External Ris In - 01/29/2020 3:23 PM CDTFINAL REPORT Renal ultrasound dated 01/29/2020 Comment: Real-time transabdominal renal ultrasound was performed.Right kidney measures 11 x 5.9 x 4.7 cm. Left kidney measures 11.2 x 4.5 x 4.2 cm. Right renal cortex measures 1.0 cm. Left renal cortex measures 0.7 cm. Echogenicity of both renal parenchyma is normal. No hydronephrosis, solid or cystic mass seen. The urinary bladder is contracted. Doppler ultrasound demonstrates patent main renal artery and vein bilaterally. Impression: Unremarkable renal ultrasound withouthydronephrosis. Signed: Siara Cantrell Verified Date/Time: 01/29/2020 15:21:36 Reading Location: [facility] [id number] [facility] Consult [facility] 2020-01-29 07:14:00 Test Item Value Reference Range Interpretation Comments Color, UA (test code = Brown 5778-6) Clarity, UA (test code = Hazy 5767-9) Specific [place], UA 1.023 1.001-1.035 (test code = 5811-5) pH, UA (test code = 6.0 5.0-8.0 5803-2) Protein, UA (test code = 100 mg/dL Negative A 37194-5) Glucose, UA (test code = Negative Negative 365) Ketones, UA (test code = 80 mg/dL Negative A 2514-8) Bilirubin, UA (test code Negative Negative = 50593-7) Blood, UA (test code = Large Negative A 32984-4) Nitrite, UA (test code = Negative Negative 5802-4) Leukocytes, UA (test code Moderate Negative A = 5799-2) Urobilinogen, UA (test 0.2 mg/dL 0.2-1 code = 24553-4) RBC, UA (test code = 2181 /HPF 91136-1) WBC, UA (test code = 30 /HPF 5821-4) Mucus (test code = Occasional 8247-9) Squam Epithel, UA (test 2 /HPF code = 87235-6) Specimen Source (test code = 2795) ALEX (test code = ALEX) 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 ID - [auto]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 ID - tech Lab Interpretation (test Abnormal code = 34838-1) [facility] [id number] 07:14:00 Test Item Value Reference Range Interpretation Comments COLOR (BEAKER) (test code = 470) Brown CLARITY (BEAKER) (test code = 469) Hazy SPECIFIC GRAVITY UA (BEAKER) (test 1.023 1.001-1.035 code = 468) PH UA (BEAKER) (test code = 467) 6.0 5.0-8.0 PROTEIN UA (BEAKER) (test code = 100 mg/dL Negative A 464) GLUCOSE UA (BEAKER) (test code = Negative Negative 365) KETONES UA (BEAKER) (test code = 80 mg/dL Negative A 371) BILIRUBIN UA (BEAKER) (test code = Negative Negative 462) BLOOD UA (BEAKER) (test code = Large Negative A 461) NITRITE UA (BEAKER) (test code = Negative Negative 465) LEUKOCYTE ESTERASE UA (BEAKER) Moderate Negative A (test code = 466) UROBILINOGEN UA (BEAKER) (test 0.2 mg/dL 0.2-1.0 code = 463) RBC UA (BEAKER) (test code = 519) 2181 /HPF WBC UA (BEAKER) (test code = 520) 30 /HPF MUCUS (BEAKER) (test code = 1574) Occasional SQUAMOUS EPITHELIAL (BEAKER) (test 2 /HPF code = 516) SOURCE(BEAKER) (test code = 2795) 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 ID - [auto]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 ID - techBASIC METABOLIC [id number] 02:41:00 Test Item Value Reference Range Interpretation Comments SODIUM (BEAKER) 137 meq/L 136-145 (test code = 381) POTASSIUM (BEAKER) 4.3 meq/L 3.5-5.1 Specimen slightly (test code = 379) hemolyzed CHLORIDE (BEAKER) 107 meq/L 98-107 (test code = 382) CO2 (BEAKER) (test 22 meq/L 22-29 code = 355) BLOOD UREA NITROGEN 12 mg/dL 7-21 (BEAKER) (test code = 354) CREATININE (BEAKER) 0.93 mg/dL 0.57-1.25 Specimen slightly (test code = 358) hemolyzed GLUCOSE RANDOM 153 mg/dL 70-105 H (BEAKER) (test code = 652) CALCIUM (BEAKER) 9.0 mg/dL 8.4-10.2 (test code = 697) EGFR (BEAKER) (test 61 mL/min/1.73 ESTIMA JOSÉ MIGUEL GFR IS code = 1092) sq m NOT ACCURATE CREATININE CLEARANCE IN PREDICTING GLOMERULAR FILTRATION RATE . ESTIMATED GFR I S NOT APPLICABLE FOR DIALYSIS PATIEN TS. 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 ID - DBCBC W/PLT COUNT & AUTO [id number] 02:16:00 Test Item Value Reference Range Interpretation Comments WHITE BLOOD CELL COUNT (BEAKER) 12.7 K/ L 3.5-10.5 H (test code = 775) RED BLOOD CELL COUNT (BEAKER) 5.19 M/ L 3.93-5.22 (test code = 761) HEMOGLOBIN (BEAKER) (test code = 15.6 GM/DL 11.2-15.7 410) HEMATOCRIT (BEAKER) (test code = 47.3 % 34.1-44.9 H 411) MEAN CORPUSCULAR VOLUME (BEAKER) 91.1 fL 79.4-94.8 (test code = 753) MEAN CORPUSCULAR HEMOGLOBIN 30.1 pg 25.6-32.2 (BEAKER) (test code = 751) MEAN CORPUSCULAR HEMOGLOBIN CONC 33.0 GM/DL 32.2-35.5 (BEAKER) (test code = 752) RED CELL DISTRIBUTION WIDTH 12.6 % 11.7-14.4 (BEAKER) (test code = 412) PLATELET COUNT (BEAKER) (test 268 K/CU MM 150-450 code = 756) MEAN PLATELET VOLUME (BEAKER) 9.4 fL 9.4-12.3 (test code = 754) NUCLEATED RED BLOOD CELLS 0 /100 WBC 0-0 (BEAKER) (test code = 413) NEUTROPHILS RELATIVE PERCENT 92 % (BEAKER) (test code = 429) LYMPHOCYTES RELATIVE PERCENT 4 % (BEAKER) (test code = 430) MONOCYTES RELATIVE PERCENT 3 % (BEAKER) (test code = 431) EOSINOPHILS RELATIVE PERCENT 0 % (BEAKER) (test code = 432) BASOPHILS RELATIVE PERCENT 0 % (BEAKER) (test code = 437) NEUTROPHILS ABSOLUTE COUNT 11.74 K/ L 1.56-6.13 H (BEAKER) (test code = 670) LYMPHOCYTES ABSOLUTE COUNT 0.52 K/ L 1.18-3.74 L (BEAKER) (test code = 414) MONOCYTES ABSOLUTE COUNT (BEAKER) 0.36 K/ L 0.24-0.36 (test code = 415) EOSINOPHILS ABSOLUTE COUNT 0.00 K/ L 0.04-0.36 L (BEAKER) (test code = 416) BASOPHILS ABSOLUTE COUNT (BEAKER) 0.04 K/ L 0.01-0.08 (test code = 417) IMMATURE GRANULOCYTES-RELATIVE 1 % 0-1 PERCENT (BEAKER) (test code = 2801) FL, FLUORO, NON-SPECIFIC, UP TO 1 [id number] 15:09:00Reason for exam:- >CYSTOSCOPY, RIGHT URETEROSCOPY, RIGHT URETERAL STENTFINAL REPORT Technique: Fluoroscopic images dated 01/28/2020 History: Right stent placement COMPARISON: None IMPRESSION:Total fluoroscopy time is 0.9 minutes. Total number of images is 13. Images reveal placement of a right double-J ureteral stent. Please see operative report fordetails. Signed: Cm Young Verified Date/Time: 01/28/2020 15:09:04 Reading Location: [address] Radiology Reading Room FL fluoro non-specific up to 1 [id number] 15:09:00 Interface, External Ris In - 01/28/2020 3:11 PM CDTFINAL REPORT Technique: Fluoroscopic images dated 01/28/2020 History: Right stent placement COMPARISON: None IMPRESSION:Total fluoroscopy time is 0.9 minutes. Total number of images is 13. Images reveal placement of a right double-J ureteral stent. Please see operative report for details. Signed: Cm Young Verified Date/Time: 01/28/2020 15:09:04 Reading Location: [address] Radiology Reading Room [facility]
--- OUTSIDE RECORDS SUMMARY | 2020-04-27 04:27 | XMS REPORT | Summary of Care ---
:1955 Author Organization [facility] [place] [address] Care Team Providers Name Role Phone Malachi Magdaleno MD Primary Care Provider Reason for Visit Reason Comments Follow Up Encounter Details Date Type Department Care Team Description [facility] [address], [address] [place] [address] [address] [facility] [phone] 7th [address], [address] [place] [address] Allergies Active Allergy Reactions Severity Noted Date Comments Iodine Hives 04/28/2007 Shrimp Shortness Of Breath High 01/11/2020 Patient has had Contrast media with no difficu lty documented as of this encounter (statuses as of 04/04/2020) Medications Medication Sig Dispensed Refills Start Date End Date Status SUNItinib Malate 37.5 Take 50 mg by 14 Cap 11 04/04/202008/2019 Active MG CAPSIndications: mouth daily for Malignant neoplasm of 14 days. 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 Never 01/11/2020 How many drinks containing alcohol do you have on a typical Not asked day when you are drinking? How often do you have six or more drinks on one occasion? No t asked Sex Assigned at Date Recorded Female 01/10/2020 8:38 PM CDT COVID-19 Exposure Response Date Recorded In the last month, have you been in contact with No / Unsure 04/03/2020 11:50 AM CDT someone who was confirmed or suspected to have Coronavirus / COVID-19? documented as of this encounter Last Filed Vital Signs Vital Sign Reading Time Taken Comments Blood Pressure 153/84 04/04/2020 10:29 AM CDT Pulse 63 04/04/2020 10:29 AM CDT Temperature 36.7 C (98 F) 04/04/2020 10:29 AM CDT Respiratory Rate - - Oxygen Saturation - - Inhaled Oxygen Concentration - - Weight 103.8 kg (228 lb 12.8 oz) 04/04/2020 10:29 AM CDT Height 165.1 cm (5' 5") 04/04/2020 10:29 AM CDT Body Mass Index 38.07 04/04/2020 10:29 AM CDT documented in this encounter Patient Instructions Patient InstructionsRachel Hill CMA - 04/04/2020 11:00 AM CDT [facility] SECTION OF ONCOLOGY/HEMATOLOGY [phone] FAX [phone] Please note that all labs and or imaging results will be discussed at the next office visit unless told otherwise. if a problem occurs after hours please contact our office and have physician integration aide paged [phone] Patient Instructions: (to be completed before next visit) Labs today To start sutent, will coordinate with Leslye about approval process Return to clinic 5 weeks with labs Please don't hesitate to call if you have any questions or concerns before your appt. TELL US ABOUT YOUR EXPERIENCE You may receive an email or letter from [facility] via our partner, Ammon Treviño. This is a survey about your experience today. Your feedback is important to us so we can improve. If any question does not apply to your visit, please leave it blank. Our goal is to ensure you have an exceptional experience at [facility]. If for any reason you cannot rate your experience as very good, please let a member of our staff know so wecan make immediate improvements. Thanks Rachel Hill CMA documented in this encounter Progress Notes Rita Mccallum MD - 04/04/2020 11:00 AM CDT Medical Oncology Clinic Note Referred By: Colten Sorto MD [address] [place] [id number] Cancer: renal cell carcinoma Interim History: Jade Pride is a 64 y.o. female who is here in person with her for a follow up appointment for renal cell carcinoma Doing well. c/o fatigue. No daytime sleeping. Sleeps well at night. No pain, no f/c/ns. Fatigue is mild. Oncology History of Present Illness: -12/2019 : presented with incidental right kidney mass after CT scan for evaluation of right sided abd pain after eating pizza. Thought it may have been gall bladder problem and was seen at outside ER and imaging done there which revealed the mass. Denies hematuria. She did have left sided abdominal pain 07/2019 but this was not present at the time. Evaluated by Dr Jeronimo 01/2020- planned for URS sincemass was involving the right renal pelvis; pt also with past history of tobacco use- concerning for urothelial carcinoma 01/28/2020 diagnostic ureteroscopy, right RGP, right ureteral stent placement ([facility] [place] [place] Findings: right collecting system was normal except for extrinsic compression from a mass at the UPJ 02/08/2020: surgery: R lap radical nephrectomy and RPLND (ASHOK Sorto) Findings: 1. Moderate-sized posterior medial mass effacing with the inferior vena cava and causing mass effect on the ureter and the gonadal vessels. 2. Single renal artery and renal vein. Path: pT3aN0 R0 FG2 clear cell RCC TUMOR Tumor Site: Middle Histologic Type: Clear [...] (pT): pT3a Regional Lymph Nodes (pN): pN0 03/21/2020 CT CAP w/ contrast: IMPRESSION: 1.No recurrent or metastatic disease in [...] evaluation with a thyroid ultrasound is recommended. Review of Systems: Review of Systems Constitutional: Positive for malaise/fatigue. Negative for chills, fever and weight loss. HENT: Negative for hearing loss. Eyes: Negative for blurred vision. Respiratory: Negative for cough, hemoptysis, sputum production, shortness of breath and wheezing. Cardiovascular: Negative for chest pain and leg swelling. Gastrointestinal: Negative for abdominal pain, constipation, diarrhea, heartburn, nausea and vomiting. Genitourinary: Negative for dysuria, flank pain and hematuria. Musculoskeletal: Negative for back pain, falls, joint pain and myalgias. Skin: Negative for rash. Neurological: Negative for dizziness. Psychiatric/Behavioral: Positive for memory loss. Negative for depression. The patient is not nervous/anxious. 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 Denies h/o CVA. Past CARDIAC SPECIALIST imaging reportedly negative. Past Surgical History: Past Surgical History: Procedure Laterality Date HX ECTOPIC SURGERY HX TOTAL NEPHRECTOMY HX URETEROSCOPY Right 01/28/2020 Social History: Social History Socioeconomic History Marital status: Spouse name: Not on file Number of children: Not on file Years of education: Not on file Highest education level: Not on file Occupational History Not on file Social Needs Financial resource strain: Not on file Food insecurity Worry: Not on file Inability: Not on file Transportation needs Medical: Not on file Non-medical: Not on file Tobacco Use Smoking status: Former Smoker Packs/day: 10.00 Years: 20.00 Pack years: 200 Types: Cigarettes Start date: 01/11/1996 Smokeless tobacco: Never Used Substance and Sexual Activity Alcohol use: Not Currently Frequency: Never Drug use: Never Sexual activity: Not on file Lifestyle Physical activity Days per week: Not on file Minutes per session: Not on file Stress: Not on file Relationships Social connections Talks on phone: Not on file Gets together: Not on file Attends orthodoxy service: Not on file Active member of club or organization: Not on file Attends meetings of clubs or organizations: Not on file Relationship status: Not on file Intimate partner violence Fear of current or ex partner: Not on file Emotionally abused: Not on file Physically abused: Not on file Forced sexual activity: Not on file Other Topics Concerns: Not on file Social History Narrative Not on file tobacco: cigarettes, 1 carton a week, about 1 ppd x 20yrs, stopped 10-15 yrs ago 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 Does not recall if contrast imaging in past was done with prep meds Medications: Current Outpatient Medications Medication Sig Dispense Refill SUNItinib Malate 37.5 MG CAPS Take 50 mg by mouth daily for 14 days. Per cycle every 21 days, take 50 mg by mouth daily for 14 days then rest for 7 days, then restart with next cycle 14 Cap 11 No current facility-administered medications for this visit. Physical Exam: Vital Signs Height: 5' 5" (165.1 cm) Weight - Scale: 228 lb 12.8 oz (103.8 kg) Temp: 98 F (36.7 C) Temp Source: Oral Pulse: 63 Resting Heart Rate: 63 BP: 153/84 Patient Position: Sitting Cuff Size: regular BP Location: left arm Oxygen Therapy O2 Sat: 98 % O2 Flow Rate: Room Air Height and Weight BSA (Calculated - sq m): 2.18 sq meters BMI (Calculated): 38.2 Predicted Body Weight: 125.66 Body surface area is 2.18 meters squared. Wt Readings from Last 3 Encounters: 04/04/20 228 lb 12.8 oz (103.8 kg) 03/14/20 226 lb 9.6 oz (102.8 kg) 01/18/20 245 lb (111.1 kg) Physical Exam Constitutional: Appearance: Normal appearance. She is obese. She is not ill-appearing. HENT: Head: Normocephalic. Nose: Nose normal. No congestion. Mouth/Throat: Mouth: Mucous membranes are moist. Eyes: General: No scleral icterus. Extraocular Movements: Extraocular movements intact. Conjunctiva/sclera: Conjunctivae normal. Neck: Musculoskeletal: Normal range of motion and neck supple. Cardiovascular: Rate and Rhythm: Normal rate and regular rhythm. Pulses: Normal pulses. Heart sounds: Normal heart sounds. Pulmonary: Effort: Pulmonary effort is normal. No respiratory distress. Breath sounds: Normal breath sounds. No stridor. No wheezing or rhonchi. Abdominal: General: Abdomen is flat. Bowel sounds are normal. There is distension. Palpations: Abdomen is soft. There is no mass. Tenderness: There is no abdominal tenderness. There is no guarding or rebound. Hernia: No hernia is present. Comments: Lap surgery scars healing, intact, no drainage/ bleeding Musculoskeletal: Normal range of motion. General: No swelling. Right lower leg: Edema present. Left lower leg: Edema present. Comments: Trace BLE edema Skin: General: Skin is warm and dry. Coloration: Skin is not jaundiced or pale. Neurological: General: No focal deficit present. Mental Status: She is alert and oriented to person, place, and time. Psychiatric: Mood and Affect: Mood normal. Behavior: Behavior normal. Labs: Labs reviewed. Results for orders placed or performed in visit on 02/03/20 CBC W/AUTO DIFF WITH PLATELETS Result Value WHITE BLOOD CELL COUNT 7.8 RED BLOOD CELL COUNT 4.86 HEMOGLOBIN 14.6 HEMATOCRIT 43.0 MEAN CORPUSCULAR VOLUME 88.5 MEAN CORPUSCULAR HEMOGLOBIN 30.0 MEAN CORPUSCULAR HEMOGLOBIN CONC 34.0 RED CELL DISTRIBUTION WIDTH 12.2 NEUTROPHILS % 49.7 LYMPHOCYTES % 30.7 MONOCYTES % 12.2 (H) EOSINOPHILS % 6.4 BASOPHILS % 1.0 PLATELET COUNT 321 Lab Results Component Value Date ALB 4.4 03/14/2020 Lab Results Component Value Date ALT 13 03/14/2020 AST 20 03/14/2020 ALKPHOS 76 03/14/2020 BILITOT 0.5 03/14/2020 Lab Results Component Value Date CREATININE 0.81 02/03/2020 BUN 11 02/03/2020 NA 143 02/03/2020 K 4.2 02/03/2020 CL 100 02/03/2020 CO2 31 02/03/2020 Images: reviewed Assessment: 64 y.o. 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 +LVI. No distant mets on CT ECOG: PS 0, able to perform ADLs fully Plan: 1. 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 -previously discussed options of adjuvant sutent vs observation based on S-trac trial results. Reviewed risks/benefits/ logistics, goals of care. Intent is curative -CT CAP w/ contrast- LUIS FERNANDO -sutent discussed, willing to start, unsure of cost, will start approval process and find out. If starts, then will plan to see back in about 1 month on treatment. Plan sutent 50mg daily, 2weeks on, 1 week off per cycle 2. Thyroid nodule- incidental, 1.5 cm - check TFTs today, consider U/S later vs follow on routine imaging Follow up with me in 5 weeks to review tolerability of adjuvant sunitinib with cbc, cmp Rita Mccallum MD [facility] Athletic Agentproduction team leader Department of Internal Medicine Section of Hematology/Oncology [phone] office documented in this encounter Plan of Treatment Date Type Specialty Care Team Description 05/09/2020 Office Visit Hematology and Oncology Nahid Mccallum MD [address], [address] [place], [place] [address] [phone] Name Type Priority Associated Diagnoses Order S chedule TSH Lab Routine Thyroid nodule Ordered: 03/18 T4 FREE Lab Routine Thyroid nodule Ordered: 03/18 Health Maintenance Due Date Last Done Comments COLON CANCER SCREENING: COLONOSCOPY 1955 MAMMOGRAM ANNUAL 1955 TETANUS SHOT (ADULT) 1970 BMI FOLLOW UP PLAN 1973 HEPATITIS C SCREENING 1973 HIV SCREENING 1973 CERVICAL CANCER SCREENING 3 YEAR FOLLOW UP 1976 ZOSTER VACCINE (1 of 2) 2005 FLU VACCINE > 6 MONTHS 03/18/2020 05/28/2019 documented as of this encounter Results Not on filedocumented in this encounter Visit Diagnoses Diagnosis Malignant neoplasm of right kidney (HCCo de) - Primary Thyroid nodule Nontoxic uninodular goiter documented in this encounter Insurance Payer Benefit Plan / Subscriber ID Effective Dates Phone Addre ss Type Group BLUE CROSS OUT OF STATE [id number] 2019-Present [id number] PPO [employer] BCBS - PPO - [place] [id number] documented as of this encounter
--- OUTSIDE RECORDS SUMMARY | 2020-04-27 04:27 | XMS REPORT | Summary of Care ---
:1955 Author Organization [facility] [place] [address] Care Team Providers Name Role Phone Malachi Magdaleno MD Primary Care Provider Reason for Referral Radiology Services (Routine) Status Reason Specialty Diagnoses / Procedures Referred By Damien tucker Referred To Contact Pending Radiology Diagnoses Renal mass, right Colten Sorto, Radiology, Josse Procedures XR CHEST PA AND LATERAL [address], [facility] [address] [place] [address] [place] [address] Phone: Reason for Visit Reason Comments Renal Mass Encounter Details Date Type Department Care Team Description 02/03/2020 Office Visit [facility] Colten Sorto MD Renal Mass Urology [address] [place] [address] [address] Floor, [place] [address] [place] [address] [phone] Allergies Active Allergy Reactions Severity Noted Date Comments Iodine Hives 04/28/2007 Shrimp Shortness Of Breath High 01/11/2020 Patient has had Contrast media with no difficu lty documented as of this encounter (statuses as of 02/03/2020) Medications Medication Sig Dispensed Refills Start Date End Date Status metaxalone (SKELAXIN) Take by mouth. 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 COVID-19 Exposure Response Date Recorded In the last month, have you been in contact with No / Unsure 02/03/2020 2:22 PM CDT someone who was confirmed or suspected to have Coronavirus / COVID-19? documented as of this encounter Last Filed Vital Signs Vital Sign Reading Time Taken Comments Blood Pressure 139/64 02/03/2020 2:36 PM CDT Pulse 65 02/03/2020 2:36 PM CDT Temperature 36.6 C (97.9 F) 02/03/2020 2:36 PM CDT Respiratory Rate - - Oxygen Saturation - - Inhaled Oxygen Concentration - - Weight - - Height - - Body Mass Index - - documented in this encounter Progress Notes Arnol Dunne MA - 02/03/2020 4:44 PM CDTReview of Systems Constitutional: Negative. HENT: Negative. Eyes: Negative. Respiratory: Negative. Cardiovascular: Negative. Gastrointestinal: Negative. Endocrine: Negative. Genitourinary: Negative. Musculoskeletal: Negative. Allergic/Immunologic: Negative. Neurological: Negative. Colten Sorto MD - 02/03/2020 3:00 PM CDT HPI Ms. Pride is a 64 year old woman referred to me by my partner Joseph Jeronimo for a right endophytic renal mass. She was having left scapular pain in 08/05 and her PCP performed a CT chest which was negative. Her pain returned in 10/06 and went to the ER and was discharged with back spasm medications and prednisone and she felt better. Then in December 2019 she began developing abdominal pain on the right side and right back. A CT abd was done which I reviewed in detail. It demonstrated a posterior upper medial uncal mass on the right side, about 5 cm, heterogenous, and widely interfacing in the renal sinus and just posterior to the renal pelvis. Due to is very central appearance, Dr. Jeronimo performed a ureteroscopy which was negative for intraluminal lesions. A stent was left in place but was accidentally removed that evening. She has been struggling with intermittent left flank pain since then. Her Cr was 0.9. She does carry a diagnosis with dementia but it sounds to be mild and she is fullyfunctional. Past Medical History: Diagnosis Date Allergies Dementia (HCCode) Right kidney mass 12/30/2019 Skin cancer of lip 2014 Past Surgical History: Procedure Laterality Date HX ECTOPIC SURGERY HX URETEROSCOPY Right 01/28/2020 Current Outpatient Medications: metaxalone (SKELAXIN) 800 MG tablet, Take by mouth., Disp: , Rfl: nitrofurantoin, macrocrystal-monohydrate, (MACROBID) 100 MG capsule, TK ONE C PO BID FOR 10 DAYS, Disp: , Rfl: tramadol (ULTRAM) 50 MG tablet, TK 1 T PO Q 6 HOURS NEEDED, Disp: , Rfl: Allergies Allergies Allergen Reactions Shrimp Shortness Of Breath Patient has had Contrast media with no difficulty Iodine Hives Social History Tobacco Use Smoking status: Former Smoker Packs/day: 10.00 Years: 20.00 Pack years: 200.00 Types: Cigarettes Start date: 01/11/1996 Smokeless tobacco: Never Used Substance Use Topics Alcohol use: Not Currently Frequency: Never Drug use: Never Family history Family History Problem Relation Name Age of Onset Cancer Father 65 Heart Attack Brother Review of Systems Constitutional: Negative. HENT: Negative. Eyes: Negative. Respiratory: Negative. Cardiovascular: Negative. Gastrointestinal: Negative. Endocrine: Negative. Genitourinary: Negative. Musculoskeletal: Negative. Allergic/Immunologic: Negative. Neurological: Negative. Physical Exam Physical Exam Vitals reviewed. height 5 feet and 5 inches; 240 lbs. BMI 40 Constitutional: She is oriented to person, place, and time. She appears well- developed and well-nourished. No distress. HENT: Head: Normocephalic and atraumatic. Neck: Normal range of motion. Neck supple. No tracheal deviation present. Cardiovascular: No evidence of lower extremities edema Pulmonary/Chest: Effort normal. No respiratory distress. Abdominal: OBESE; Soft. She exhibits no distension and no mass. There is no tenderness. There is no rebound and no guarding. Musculoskeletal: Normal range of motion. She exhibits no tenderness. Lymphadenopathy: She has no cervical adenopathy. Neurological: She is alert and oriented to person, place, and time. Skin: Skin is warm and dry. No rash noted. She is not diaphoretic. No erythema. No pallor. Psychiatric: She has a normal mood and affect. Her behavior is normal. Judgment and thought content normal. Assessment: Ms. Pride is an obese 64 year old woman with a very endophytic T1b renal mass in a woman with a normal creatinine. While I think it maybe be feasible to perform nephron-sparing surgery,I think it would be high risk for complications and for upstaging. I also explained that not everything that CAN be done SHOULD be done. My recommendation was for a laparoscopic radical nephrectomy after completion of staging. We spoke about the risks of nephrectomy including bleeding, infection, injury to adjacent structures, incisional hernia, and conversion to an open procedure. We will make a rrangements to proceed. I spent > 40 min with the patient with over 50% of the time counseling and coordinating care. Plan 1. Plan for Right Laparoscopic nephrectomy documented in this encounter Plan of Treatment Date Type Specialty Care Team Description 02/08/2020 Appointment Urology Colten Sorto am, MD [address] [address] [phone] Name Type Priority Associated Diagnoses Order S chedule XR CHEST PA AND Imaging Routine Renal mass, right 1 Occur rences LATERAL starting 2019 until 1 URINALYSIS W REFLEX Lab Routine Renal mass, right Ord ered: 02/03/2020 MICRO CBC W/AUTO DIFF WITH Lab Routine Renal mass, right Or dered: 02/03/2020 PLATELETS BASIC METABOLIC PANEL Lab Routine Renal mass, right O rdered: 02/03/2020 CULTURE, Microbiology Routine Renal mass, right Ordered: 0 02/03/2020 URINE/SENSITIVITY ON ALL APTT Lab Routine Renal mass, right Ordered: 0 02/03/2020 PROTIME-INR Lab Routine Renal mass, right Ordered: 0 02/03/2020 NOVEL 2019 Microbiology Routine Pre-op testing 1 Occurrences CORONAVIRUS(COVID-19) starti ng 02/03/2020 ,BANDAR until 0 Health Maintenance Due Date Last Done Comments COLON CANCER SCREENING: COLONOSCOPY 1955 MAMMOGRAM ANNUAL 1955 TETANUS SHOT (ADULT) 1970 BMI FOLLOW UP PLAN 1973 HEPATITIS C SCREENING 1973 HIV SCREENING 1973 CERVICAL CANCER SCREENING 3 YEAR FOLLOW UP 1976 FLU VACCINE > 6 MONTHS 03/18/2020 05/28/2019 documented as of this encounter Results Not on filedocumented in this encounter Visit Diagnoses Diagnosis Renal mass, right - Primary Unspecified disorder of kidney and urete r Pre-op testing Preoperative examination, unspecified documented in this encounter Insurance Payer Benefit Plan / Subscriber ID Effective Dates Phone Addre ss Type Group BLUE CROSS OUT OF [facility] xxxxxxxxxxxx 2020-Present [address] [address] [facility] [id number] documented as of this encounter
--- OUTSIDE RECORDS SUMMARY | 2020-04-27 04:27 | XMS REPORT | Summary of Care ---
:1955 Author Organization [facility] [place] [address] Care Team Providers Name Role Phone Malachi Magdaleno MD Primary Care Provider Reason for Referral Radiology Services (Routine) Status Reason Specialty Diagnoses / Referred By Contact Refe rred To Contact Procedures Pending Radiology Diagnoses Malignant neoplasm of right kidney (HCCode) Rita Mccallum, Radiology, Josse Procedures CT CHEST ABDOMEN PELVIS W CONTRAST [address], [facility] [address] [facility] 7th Floor, [address] [place] [address] [place], [place] [address] Phone: Reason for Visit Reason Comments Initial Consultation Consult, Test & Treat (Routine) Status Reason Specialty Diagnoses / Referred By Referred To Procedures Contact Contact Authorization Not Consult, Oncology / Diagnoses Personal history of kidney cancer Consult, Test, and Treat Consult, Test, and Treat Colten Sorto Aihua Needed Test, and Hematology and Procedures [place] OFFICE OUTPATIENT NEW 45 MINUTES MD Paulo Aguirre MD Treat Oncology [address] [facility] [address] [facility], [place], [place] [address] [address] [place], [place] Phone: [phone] Phone: Encounter Details Date Type Department Care Team Description [facility] Pedro Garcia MD [facility] [address] [facility] 7th Floor, [address] [facility] [address] 7[address] Floor, [address] [place] [address] [place] [address] [phone] Allergies Active Allergy Reactions Severity Noted Date Comments Iodine Hives 04/28/2007 Shrimp Shortness Of Breath High 01/11/2020 Patient has had Contrast media with no difficu lty documented as of this encounter (statuses as of 03/14/2020) Medications Medication Sig Dispensed Refills Start End Date Status Date predniSONE Take a single 3 Tab 0 03/28/20 Activ e (DELTASONE) 50 MG pill at 13 0 20 tablet hours, 7 hours and 1 hour prior to procedure for 3 separate doses diphenhydrAMINE Take 2 pills 2 Tab 0 03/28/20 A ctive (BENADRYL) 25 MG together by 0 20 tablet mouth 1 hour prior to procedure (OVER THE COUNTER) famotidine (PEPCID) Take 1 pill by 1 Tab 0 03/28 Active 20 MG tablet mouth 1 hour 0 20 prior to procedure (OVER THE COUNTER) metaxalone Take by 0 03/14/20 Discontin ued (SKELAXIN) 800 MG mouth. 7 20 (* Therapy tablet completed) nitrofurantoin, TK ONE C PO 0 03/14/20 Di scontinued macrocrystal-monohyd BID FOR 10 0 20 (*Therapy rate, (MACROBID) 100 DAYS completed) MG capsule acetaminophen-codein Take 1 Tab by 30 Tab 0 03/14 Discontinued e (TYLENOL #3) mouth every 4 0 20 ( *Therapy 300-30 MG per tablet hours as completed) needed for Pain. 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 documented as of this encounter Last Filed Vital Signs Vital Sign Reading Time Taken Comments Blood Pressure 148/83 03/14/2020 1:48 PM CDT Pulse 64 03/14/2020 1:48 PM CDT Temperature 36.4 C (97.6 F) 03/14/2020 1:48 PM CDT Respiratory Rate - - Oxygen Saturation - - Inhaled Oxygen Concentration - - Weight 102.8 kg (226 lb 9.6 oz) 03/14/2020 1:48 PM CDT Height 165.1 cm (5' 5") 03/14/2020 1:48 PM CDT Body Mass Index 37.71 03/14/2020 1:48 PM CDT documented in this encounter Patient Instructions Patient InstructionsRachel Hill CMA - 03/14/2020 2:00 PM CDT [facility] SECTION OF ONCOLOGY/HEMATOLOGY [phone] FAX [phone] Please note that all labs and or imaging results will be discussed at the next office visit unless told otherwise. if a problem occurs after hours please contact our office and have physician artifacts conservator paged [phone] Patient Instructions: (to be completed before next visit) Lab Today CT scan before next appt, here Return to clinic 3 weeks Please don't hesitate to call if you have any questions or concerns before your appt. TELL US ABOUT YOUR EXPERIENCE You may receive an email or letter from [facility] via our partner, Ammon Treviño. This is a survey about your experience today. Your feedback is important to us so we can improve. If any question does not apply to your visit, please leave it blank. Our goal is to ensure you have an exceptional experience at [facility]. If for any reason you cannot rate your experience as very good, please let a member of our staff know so wecan make immediate improvements. Thanks Rachel Hill CMA documented in this encounter Progress Notes Rita Mccallum MD - 03/14/2020 2:00 PM CDT Medical Oncology Initial Consult- History and Physical Referred By: Colten Sorto MD [address] [place] [address] Reason for Consultation: Initial consultation for renal cell carcinoma Oncology History of Present Illness: Jade Pride is a 64 y.o. female who is here in person with her for an initial consultation for renal cell carcinoma History is obtained from the patient and the available medical records and chart. Jade Pride has no acute complaints today. -12/2019 : presented with incidental right kidney [...] ureteroscopy, right RGP, right ureteral stent placement ([facility]) Findings: right collecting system was normal except [...] (pT): pT3a Regional Lymph Nodes (pN): pN0 Review of Systems: Review of Systems Constitutional: Positive for weight loss. Negative for chills, fever and malaise/fatigue. HENT: Negative for hearing loss. Eyes: Negative [...] of unclear etiology. Denies h/o CVA. 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 Past Surgical History: Past [...] Financial resource strain: Not on file Food insecurity: Worry: Not on file Inability: Not on file Transportation needs: Medical: Not on file Non-medical: Not on file Tobacco Use Smoking status: Former Smoker Packs/day: 10.00 Years: 20.00 Pack years: 200 Types: Cigarettes Start date: 01/11/1996 Smokeless tobacco: Never Used Substance and Sexual Activity Alcohol use: Not Currently Frequency: Never Drug use: Never Sexual activity: Not on file Lifestyle Physical activity: Days per week: Not on file Minutes per session: Not on file Stress: Not on file Relationships Social connections: Talks on phone: Not on file Gets together: Not on file Attends spiritism service: Not on file Active member of club or organization: Not on file Attends meetings of clubs or organizations: Not on file Relationship status: Not on file Intimate partner violence: Fear of current or ex partner: Not on file Emotionally abused: Not on file Physically abused: Not on file Forced sexual activity: Not on file Other Topics Concerns: Not on file Social History Narrative Not on file tobacco: cigarettes, 1 carton a week, about 1 ppd x 20yrs, stopped 10-15 yrs ago 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 No current facility-administered medications for this visit. Physical Exam: Vital Signs Height: 5' 5" (165.1 cm) Weight - Scale: 226 lb 9.6 oz (102.8 kg) Temp: 97.6 F (36.4 C) Temp Source: Oral Pulse: 64 Resting Heart Rate: 64 BP: 148/83 Patient Position: Sitting Cuff Size: large BP Location: left arm Oxygen Therapy O2 Sat: 100 % O2 Flow Rate: Room Air Height and Weight BSA (Calculated - sq m): 2.17 sq meters BMI (Calculated): 37.8 Predicted Body Weight: 125.66 Body surface area is 2.17 meters squared. Wt Readings from Last 3 Encounters: 03/14/20 226 lb 9.6 oz (102.8 kg) 01/18/20 245 lb (111.1 kg) 01/11/20 240 lb (108.9 kg) Physical Exam Constitutional: Appearance: Normal appearance. [...] 6.4 BASOPHILS % 1.0 PLATELET COUNT 321 No results found for: ALB No results found for: ALT, AST, GGT, ALKPHOS, BILITOT Lab Results Component Value Date CREATININE 0.81 02/03/2020 BUN 11 02/03/2020 NA 143 02/03/2020 K 4.2 02/03/2020 CL 100 02/03/2020 CO2 31 02/03/2020 Images: reviewed Assessment: 64 y.o. 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 +LVI ECOG: PS 0, able to perform ADLs fully Plan: 1. 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 -discussed options of adjuvant sutent vs observation based on S-trac trial results. Reviewed risks/benefits/ logistics, goals of care. Intent is curative, although need post op restaging. -CT CAP w/ contrast- plan for here -sutent chemocare given, start approval process -LFTs today. Recent CBC, CMP acceptable Follow up with me in 3-4 weeks to review post op imaging and potentially to start adjuvant sunitinib I spent 60 minutes in the care of this patient, 75% of the time was spent in face to face counselingof RCC Rita Mccallum MD [facility] Senior Quality Control Inspectorfelt carbonizer Department of Internal Medicine Section of Hematology/Oncology [phone] office documented in this encounter Plan of Treatment Date Type Specialty Care Team Description 04/04/2020 Office Visit Hematology and Oncology Nahid Mccallum MD [address], [address] [place], [place] [address] [phone] Name Type Priority Associated Diagnoses Order S chedule HEPATIC FUNCTION PANEL Lab Routine Malignant neoplasm of Ordered: 03/14/2020 right kidney (HCCode) CT CHEST ABDOMEN Imaging Routine Malignant neoplasm of Ex pected: 03/21/2020, PELVIS W CONTRAST right kidney (HCCode) E xpires: 03/14/2021 Health Maintenance Due Date Last Done Comments [...] of right kidney (HCCo de) - Primary documented in this encounter Insurance Payer Benefit Plan / Subscriber ID Effective Dates Phone Addre ss Type Group BLUE CROSS OUT OF STATE xxxxxxxxxxxx 2019-Present [place] [id number] [facility] [place] [facility] [id number] documented as of this encounter
[2020-04-27 05:19] LABS: Absolute Lymphocytes (CBC) 2.5 K/uL (0.7-4.9); Basophils % 1.2 % (0-1.3); Hematocrit 45.6 % (36.0-45.0); Lymphocytes % 35.2 % (15.3-44.8); MPV 7.9 fL (7.6-11.3); RBC Red Blood Cell Count 5.16 M/uL (3.86-4.86)
[2020-04-27 05:20] LABS: Protime INR 0.91
[2020-04-27 05:35] LABS: ALT/SGPT 22 U/L (12-78); AST/SGOT 17 U/L (15-37); Albumin 3.5 g/dL (3.4-5.0); Alkaline Phosphatase 78 U/L (45-117); BUN Blood Urea Nitrogen 12 mg/dL (7-18); Bicarbonate 26 mmol/L (21-32); Bilirubin Direct 0.1 mg/dL (0-0.2); Bilirubin Total 0.5 mg/dL (0.2-1.0); Glucose Level 91 mg/dL (74-106); Magnesium 2.2 mg/dL (1.8-2.4); NT PRO-BNP 297 pg/mL (<125); Potassium 4.3 mmol/L (3.5-5.1); Protein, Total 7.3 g/dL (6.4-8.2); Sodium Level 143 mmol/L (136-145); Troponin (Emerg Dept Use Only) < 0.02 ng/mL (0.0-0.045)
--- NOTE | 2020-04-27 05:55 | EKG ---
Test Date: 2020-04-27 Test Time: 04:41:58 Scene Shifter: SWG MEASUREMENT RESULTS: Intervals: Rate: 62 MA: 144 QRSD: 76 QT: 454 QTc: 460 [place]: P: 39 MA: 144 QRS: 12 T: 23 INTERPRETIVE STATEMENTS: Normal sinus rhythm Minimal voltage criteria for LVH, may be normal variant Borderline ECG Compared to ECG 12/30/2019 01:10:47 Left ventricular hypertrophy now present Ventricular premature complex(es) no longer present Electronically Signed On 04-27-20 05:55:10 CDT by Sinan Tovar
--- NOTE | 2020-04-27 06:39 | ER ---
Nurse's Notes [facility] Name: Jade Pride Age: 64 yrs Sex: Female : 1955 Arrival Date: 04/27/2020 Time: 04:25 Bed 7 Private MD: Diagnosis: Chest pain, unspecified Presentation: 04/27 04:43 Chief complaint: Spouse and/or significant other states: She woke me up saying she was sg having some chest pain and discomfort with a little bit of nausea this morning. Coronavirus screen: Client denies travel out of the [place] in the last 14 days. At this time, the client does not indicate any symptoms associated with coronavirus-19. Ebola Screen: Patient negative for fever greater than or equal to 101.5 degrees Fahrenheit, and additional compatible Ebola Virus Disease symptoms Patient denies exposure to infectious person. Patient denies travel to an Ebola-affected area in the 21 days before illness onset. No symptoms or risks identified at this time. Initial Sepsis Screen: Does the patient meet any 2 criteria? No. Patient's initial sepsis screen is negative. Does the patient have a suspected source of infection? No. Patient's initial sepsis screen is negative. Risk Assessment: Do you want to hurt yourself or someone else? Patient reports no desire to harm self or others. Note pt spouse reports pt has a diagnosis of dementia and is a poor historian of events, pt spouse to remain at bedside. Onset of symptoms was April 27, 2020 at 03:30. 04:43 Acuity: DANIEL 3 sg 04:43 Method Of Arrival: Ambulatory sg Historical: - Allergies: 04:45 Tetracycline (Blisters in Mouth); sg - Home Meds: 04:54 aspirin 325 mg Oral tab 1 tab as needed for Pain [Active]; mg2 - PMHx: 04:45 Back pain; sg 07:48 Dementia; sg - PSHx: 04:45 Tubal ligation; sg - Immunization history:: Adult Immunizations up to date. - Social history:: Smoking status: Patient denies any tobacco usage or history of. Screenin:52 Abuse screen: Denies threats or abuse. Denies injuries from another. Nutritional mg2 screening: No deficits noted. Tuberculosis screening: No symptoms or risk factors identified. Fall Risk IV access (20 points). Assessment: 04:52 General: Appears in no apparent distress. comfortable, Behavior is calm, cooperative. mg2 Pain: Complains of pain in chest Pain does not radiate. Pain currently is 5 out of 10 on a pain scale. Quality of pain is described as aching, Pain began gradually, 2 hours ago. Neuro: Level of Consciousness is awake, alert, obeys commands, Oriented to person, place, time, situation. Cardiovascular: Capillary refill < 3 seconds Patient's skin is warm and dry. Respiratory: Airway is patent Respiratory effort is even, unlabored, Respiratory pattern is regular, symmetrical. GI: No signs and/or symptoms were reported involving the gastrointestinal system. : No signs and/or symptoms were reported regarding the genitourinary system. EENT: No signs and/or symptoms were reported regarding the EENT system. Derm: Skin is intact, is healthy with good turgor, Skin is pink, warm \T\ dry. normal. Musculoskeletal: Circulation, motion, and sensation intact. Capillary refill < 3 seconds. 05:48 Reassessment: Patient appears in no apparent distress at this time. Patient and/or mg2 family updated on plan of care and expected duration. Pain level reassessed. Patient is alert, oriented x 3, equal unlabored respirations, skin warm/dry/pink. 06:47 Reassessment: patient agreed to be hospitalized. mg2 07:09 General: Appears in no apparent distress. comfortable, Behavior is calm, cooperative. rb1 Neuro: Level of Consciousness is awake, alert, obeys commands, Oriented to person, place, time, situation. Cardiovascular: Patient's skin is warm and dry. Respiratory: Airway is patent Respiratory effort is even, unlabored, Respiratory pattern is regular, symmetrical. 08:00 Reassessment: Patient appears in no apparent distress at this time. No changes from rb1 previously documented assessment. 09:00 Reassessment: Patient appears in no apparent distress at this time. Patient and/or rb1 family updated on plan of care and expected duration. Pain level reassessed. Patient is alert, oriented x 3, equal unlabored respirations, skin warm/dry/pink. at the bedside. 09:52 Reassessment: Patient appears in no apparent distress at this time. Pt updated on POC. rb1 10:04 Reassessment: Gave report to RICKY Su. Information from the SBAR was given. All rb1 questions asked and answered. Vital Signs: 04:51 BP 162 / 87; Pulse 65; Resp 18; Temp 97.8; Pulse Ox 99% on R/A; Pain 5/10; mg2 05:49 BP 155 / 83; Pulse 51; Resp 20; Pulse Ox 98% on R/A; mg2 06:47 BP 148 / 80; Pulse 55; Resp 18; Pulse Ox 100% on R/A; mg2 07:47 BP 159 / 77; Pulse 56; Resp 14; Pulse Ox 99% ; rb1 08:45 BP 174 / 74; Pulse 52; Resp 18; Pulse Ox 100% ; rb1 09:45 BP 159 / 78; Pulse 47; Resp 14; Pulse Ox 100% ; rb1 ED Course: 04:25 Patient arrived in ED. bp1 04:36 Syed Brennan, RICKY is Primary Nurse. mg2 04:40 Arm band placed on. sg 04:42 Alexys Aguilera MD is Attending Physician. mh7 04:45 Triage completed. sg 04:51 No provider procedures requiring assistance completed. Inserted saline lock: 20 gauge mg2 in right antecubital area, using aseptic technique. Blood collected. Patient maintains SpO2 saturation greater than 95% on room air. 04:53 Patient has correct armband on for positive identification. satellite project site monitor on. Pulse mg2 ox on. NIBP on. Door closed. Warm blanket given. 05:02 XRAY Chest (1 view) In Process Unspecified. EDMS 06:39 Timbo Daly is Hospitalizing Provider. 7 07:06 covid swab sent to lab. Patient admitted, IV remains in place. mg2 Administered Medications: 05:32 Not Given (Patient Refused): morphine 2 mg IVP once; (PAIN>8) RASS on ADMN: Combtv4, mt2 Very Agttd3, Agttd2, Rstlss1, AlertClm0, Drwsy-1, LtSdtn-2, ModSdtn-3, DpSdtn-4, UnArsble-5 x2 05:32 Not Given (Patient Refused): Zofran (Ondansetron) 4 mg IVP once; over 2 minutes mt2 06:47 Drug: Aspirin Chewable Tablet 324 mg Route: PO; mg2 Outcome: 06:39 Decision to Hospitalize by Provider. mh7 10:52 Patient left the ED. aa5 10:52 Admitted to Med/surg accompanied by tech, family with patient, via wheelchair, room rb1 213, with chart, Report called to RICKY Su 10:52 Condition: stable 10:52 Instructed on the need for admit. rb1 Addendum: 05/01/2020 13:44 Addendum: COVID-19 Result: Negative result given to RN to notify pt. Left voice mail. i w 14:32 Addendum: COVID-19 Result: Negative result given to RN to notify pt. Notified pt of i w negative COVID 19 swab results. Pt advised that even with a negative test result they should remain in isolation until symptom free for 3 days without medication. Pt also advised to return to the ED for worsening symptoms. Signatures: Dispatcher [employer] EDMS Yoan Sidhu RN RN sg Candi Ravi RN RN iw Mya Cruz RN RN aa5 Evelia Mccurdy RN RN rb1 Syed Brennan RN RN mg2 Sulma Mcconnell Maurice, MD MD 7 Summer Guillen RN mt2 Corrections: (The following items were deleted from the chart) 04/27 04:52 04:51 Inserted saline lock: mg2 mg2
--- NOTE | 2020-04-27 06:40 | EDPHYS ---
Physician Documentation [facility] Name: Jade Pride Age: 64 yrs Sex: Female : 1955 Arrival Date: 04/27/2020 Time: 04:25 Bed 7 Private MD: ED Physician Alexys Aguilera HPI: 04/27 05:20 This 64 yrs old Female presents to ER via Ambulatory with complaints of Chest mh7 Pain > 30 y/o. 05:20 The patient or guardian reports chest pain that is located primarily in the substernal mh7 area. Onset: today. The pain radiates to jaw. Associated signs and symptoms: Pertinent positives: shortness of breath, Pertinent negatives: abdominal pain, cough, diaphoresis, dizziness, headache, lower extremity pain, lower extremity swelling, lightheadedness, nausea, near syncope, palpitations, recent travel, syncope, vomiting. The chest pain is described as a pressure. Duration: The patient or guardian reports multiple episodes, that are intermittent, that wax and wane, with no pattern. Modifying factors: The symptoms are alleviated by nothing. the symptoms are aggravated by nothing. Severity of pain: At its worst the pain was moderate today, in the emergency department the pain has improved moderately. Historical: - Allergies: 04:45 Tetracycline (Blisters in Mouth); sg - Home Meds: 04:54 aspirin 325 mg Oral tab 1 tab as needed for Pain [Active]; mg2 - PMHx: 04:45 Back pain; sg 07:48 Dementia; sg - PSHx: 04:45 Tubal ligation; sg - Immunization history:: Adult Immunizations up to date. - Social history:: Smoking status: Patient denies any tobacco usage or history of. ROS: 05:20 Constitutional: Negative for fever, chills, and weight loss, Eyes: Negative for injury, mh7 pain, redness, and discharge, ENT: Negative for injury, pain, and discharge, Neck: Negative for injury, pain, and swelling, Abdomen/GI: Negative for abdominal pain, nausea, vomiting, diarrhea, and constipation, Back: Negative for injury and pain, : Negative for injury, bleeding, discharge, and swelling, MS/Extremity: Negative for injury and deformity, Skin: Negative for injury, rash, and discoloration, Neuro: Negative for headache, weakness, numbness, tingling, and seizure, Psych: Negative for depression, anxiety, suicide ideation, homicidal ideation, and hallucinations, Allergy/Immunology: Negative for hives, rash, and allergies, Endocrine: Negative for neck swelling, polydipsia, polyuria, polyphagia, and marked weight changes, Hematologic/Lymphatic: Negative for swollen nodes, abnormal bleeding, and unusual bruising. Exam: 05:20 Constitutional: This is a well developed, well nourished patient who is awake, alert, mh7 and in no acute distress. Head/Face: Normocephalic, atraumatic. Eyes: Pupils equal round and reactive to light, extra-ocular motions intact. Lids and lashes normal. Conjunctiva and sclera are non-icteric and not injected. Cornea within normal limits. Periorbital areas with no swelling, redness, or edema. Neck: Trachea midline, no thyromegaly or masses palpated, and no cervical lymphadenopathy. Supple, full range of motion without nuchal rigidity, or vertebral point tenderness. No Meningismus. Chest/axilla: Normal chest wall appearance and motion. Nontender with no deformity. No lesions are appreciated. Cardiovascular: Regular rate and rhythm with a normal S1 and S2. No gallops, murmurs, or rubs. Normal PMI, no JVD. No pulse deficits. Respiratory: Lungs have equal breath sounds bilaterally, clear to auscultation and percussion. No rales, rhonchi or wheezes noted. No increased work of breathing, no retractions or nasal flaring. Abdomen/GI: Soft, non-tender, with normal bowel sounds. No distension or tympany. No guarding or rebound. No evidence of tenderness throughout. Back: No spinal tenderness. No costovertebral tenderness. Full range of motion. Skin: Warm, dry with normal turgor. Normal color with no rashes, no lesions, and no evidence of cellulitis. MS/ Extremity: Pulses equal, no cyanosis. Neurovascular intact. Full, normal range of motion. Neuro: Awake and alert, GCS 15, oriented to person, place, time, and situation. Cranial nerves II-XII grossly intact. Motor strength 5/5 in all extremities. Sensory grossly intact. Cerebellar exam normal. Normal gait. Psych: Awake, alert, with orientation to person, place and time. Behavior, mood, and affect are within normal limits. 05:20 ECG was reviewed by the Attending Physician. Vital Signs: 04:51 BP 162 / 87; Pulse 65; Resp 18; Temp 97.8; Pulse Ox 99% on R/A; Pain 5/10; mg2 05:49 BP 155 / 83; Pulse 51; Resp 20; Pulse Ox 98% on R/A; mg2 06:47 BP 148 / 80; Pulse 55; Resp 18; Pulse Ox 100% on R/A; mg2 07:47 BP 159 / 77; Pulse 56; Resp 14; Pulse Ox 99% ; rb1 08:45 BP 174 / 74; Pulse 52; Resp 18; Pulse Ox 100% ; rb1 09:45 BP 159 / 78; Pulse 47; Resp 14; Pulse Ox 100% ; rb1 MDM: 04:56 Patient medically screened. [facility] 06:37 Differential diagnosis: abnormal EKG, acute myocardial infarction, anxiety, coronary mh7 artery disease chest wall pain, congestive heart failure pancreatitis, pericarditis, pleurisy, pneumonia, pneumothorax. HEART Score: History: Moderately Suspicious (1), ECG: Non specific repolarization disturbance / LBTB / PM (1), Age: > 45 and < 65 years (1), Risk Factors: 1 or 2 risk factors (1), [Hypertension] Troponin: < or = 1 x Normal Limit (0), Total Score = 4. Data reviewed: vital signs, nurses notes, old medical records, lab test result(s), cardiac enzymes, CBC, electrolytes, urinalysis, EKG, radiologic studies, plain films. 06:38 The patient was given aspirin in the Emergency Department. Data interpreted: Pulse mh7 oximetry: on room air is 98 %. Interpretation: normal. Counseling: I had a detailed discussion with the patient and/or guardian regarding: the historical points, exam findings, and any diagnostic results supporting the discharge/admit diagnosis, the presence of at least one elevated blood pressure reading (>120/80) during this emergency department visit, lab results, radiology results, the need for further work-up and treatment in the hospital. 04/27 04:36 Order name: Basic Metabolic Panel; Complete Time: 06:07 mg2 04/27 04:36 Order name: CBC with Diff; Complete Time: 06: mg2 04/27 04:36 Order name: LFT's; Complete Time: 06: mg2 04/27 04:36 Order name: Magnesium; Complete Time: 06:07 mg2 04/27 04:36 Order name: NT PRO-BNP; Complete Time: 06:07 mg2 04/27 04:36 Order name: PT-INR; Complete Time: 06: mg2 04/27 04:36 Order name: Troponin (emerg Dept Use Only); Complete Time: 06:07 mg2 04/27 04:36 Order name: XRAY Chest (1 view) mg2 04/27 04:36 Order name: EKG; Complete Time: 04:37 mg2 04/27 04:36 Order name: Cardiac monitoring; Complete Time: 04:50 mg2 04/27 06:48 Order name: COVID-19 mg2 04/27 04:36 Order name: EKG - Nurse/Tech; Complete Time: 04:50 mg2 04/27 04:36 Order name: IV Saline Lock; Complete Time: 04:51 mg2 04/27 04:36 Order name: Labs collected and sent; Complete Time: 04:51 mg2 04/27 04:36 Order name: O2 Per Protocol; Complete Time: 04: mg2 04/27 04:36 Order name: O2 Sat Monitoring; Complete Time: 04:51 mg2 EC:20 Rate is 62 beats/min. Rhythm is regular, Normal Sinus Rhythm. QRS [place] is Normal. [place] mh7 interval is normal. QRS interval is normal. QT interval is normal. No Q waves. T waves are Normal. No ST changes noted. Clinical impression: NSR w/ Non-specific ST/T Changes and LVH. Administered Medications: 05:32 Not Given (Patient Refused): morphine 2 mg IVP once; (PAIN>8) RASS on ADMN: Combtv4, mt2 Very Agttd3, Agttd2, Rstlss1, AlertClm0, Drwsy-1, LtSdtn-2, ModSdtn-3, DpSdtn-4, UnArsble-5 x2 05:32 Not Given (Patient Refused): Zofran (Ondansetron) 4 mg IVP once; over 2 minutes mt2 06:47 Drug: Aspirin Chewable Tablet 324 mg Route: PO; mg2 Disposition: 04/27/20 06:39 Hospitalization ordered by Timbo Daly for Observation. Preliminary diagnosis is Chest pain, unspecified. - Bed requested for Telemetry/MedSurg (observation). - Status is Observation. aa5 - Condition is Stable. - Problem is new. - Symptoms have improved. Signatures: Dispatcher [employer] EDMS Arabella Bull Yoan Morton, RN RN Mya Cruz RN RN aa5 Syed Brennan RN RN [facility] Alexys Aguilera MD MD 7 Summer Guillen RN mt2 Corrections: (The following items were deleted from the chart) 09: 06:39 Hospitalization Ordered by Timbo Daly for Observation. Preliminary diagnosis bd is Chest pain, unspecified. Bed requested for Telemetry/MedSurg (observation). Status is Observation. Condition is Stable. Problem is new. Symptoms have improved. [facility] 10:52 09:27 04/27/2020 06:39 Hospitalization Ordered by Timbo Daly for Observation. aa5 Preliminary diagnosis is Chest pain, unspecified. Bed requested for Telemetry/MedSurg (observation). Status is Observation. Condition is Stable. Problem is new. Symptoms have improved. bd
[2020-04-27] MEDS ORDERED: ASPIRIN 81 MG CHEWABLE TABLET ONE (06:56)
--- NOTE | 2020-04-27 07:47 | RAD REPORT ---
EXAM DESCRIPTION: Johny Single View04/27/2020 5:03 am CLINICAL HISTORY: Chest pain COMPARISON: 2019 FINDINGS: The lungs appear clear of acute infiltrate. The heart is normal size IMPRESSION: No acute abnormalities displayed
--- NOTE | 2020-04-27 08:20 | P.HP ---
Certification for Inpatient Patient admitted to: Observation With expected LOS: <2 Midnights Practitioner: I am a practitioner with admitting privileges, knowledge of patient current condition, hospital course, and medical plan of care. Services: Services provided to patient in accordance with Admission requirements found in Title 42 Section 412.3 of the Code of Federal Regulations Patient History Date of Service: 04/27/20 Reason for admission: Chest pain History of Present Illness: 64-year-old woman with a history of renal cancer status post nephrectomy presented to the emergency department with a complaint of chest pain of onset yesterday. Patient describes intermittent chest pain, maximum intensity 5/10, located in the anterior mid sternal area, no known relieving or aggravating factors. She stated the chest pain woke her up from sleep last night. Initial troponin in the ED is negative. EKG demonstrated sinus rhythm with no ischemic changes. Chest x-ray showed no acute abnormality. She had a similar chest pain episode 3 years ago and had a stress test done which was negative. Patient is placed under observation for ACS rule out. Allergies tetracycline Allergy (Verified 10/19/16 06:03) Itching/Hives/Rash Home Medications: Sunitinib Malate [Sutent] 1 cap PO DAILY 04/27/20 - Past Medical/Surgical History Diabetic: No -: none -: Renal cancer -: Chronic back pain -: tubal ligation -: Nephrectomy - Family History Father -: Cancer Notes: Lung - Social History Smoking Status: Former smoker Alcohol use: No CD- Drugs: No Caffeine use: No Review of Systems Other: Except as documented, all other systems reviewed and negative. Physical Examination - Physical Exam General: Alert, In no apparent distress, Oriented x3 HEENT: Mucous membr. moist/pink, Sclerae nonicteric Neck: Supple, JVD not distended Respiratory: Clear to auscultation bilaterally, Normal air movement Cardiovascular: No edema, Regular rate/rhythm, Normal S1 S2 Gastrointestinal: Normal bowel sounds, Soft and benign, Non-distended, No tenderness Musculoskeletal: No swelling, No erythema Integumentary: No rashes Neurological: Normal speech, Normal strength at 5/5 x4 extr - Studies Laboratory Data (last 24 hrs) 04/27/20 04:45: PT 10.7, INR 0.91 04/27/20 04:45: WBC 7.0, Hgb 15.7 H, Hct 45.6 H, Plt Count 236 04/27/20 04:45: Sodium 143, Potassium 4.3, BUN 12, Creatinine 1.31 H, Glucose 91, Magnesium 2.2, Total Bilirubin 0.5, AST 17, ALT 22, Alkaline Phosphatase 78 Assessment and Plan - Problems (Diagnosis) (1) Chest pain Onset Date: 10/21/16 Current Visit: No Status: Acute (2) GERD (gastroesophageal reflux disease) Onset Date: 10/21/16 Current Visit: No Status: Acute (3) Chronic back pain Current Visit: Yes Status: Acute - Plan Place under observation. Trend troponin Pain management as needed Sublingual nitroglycerin as needed Aspirin 81 mg daily Check lipid profile Nuclear stress test pending troponin result. Validate home medications and resume them. - Advance Directives Does patient have a Living Will: No Does patient have a Durable POA for Healthcare: No
[2020-04-27] MEDS: ENOXAPARIN 40 MG/0.4 ML SQ SCH (10:09)
[2020-04-27] MEDS ORDERED: NITROGLYCERIN 0.4 MG/TAB SL PRN (10:09)
[2020-04-27 11:05] VITALS: BMI 39.1
[2020-04-27] MEDS: ASPIRIN EC 81 MG TAB PO SCH (11:13)
[2020-04-27 11:55] LABS: HDL Cholesterol 73 mg/dL (40-60); LDL Cholesterol, Calculated 32 (<130); Troponin I < 0.02 ng/mL (0.0-0.045)
[2020-04-28 06:04] LABS: Basophils % 1.6 % (0-1.3); Lymphocytes % 36.2 % (15.3-44.8); MPV 7.9 fL (7.6-11.3); RBC Red Blood Cell Count 4.78 M/uL (3.86-4.86)
[2020-04-28 06:12] LABS: Potassium 4.2 mmol/L (3.5-5.1)
[2020-04-28 08:57] VITALS: O2SAT 95
[2020-04-28] MEDS: ENOXAPARIN 40 MG/0.4 ML SQ SCH (09:00)
[2020-04-28] MEDS ORDERED: REGADENOSON 0.4 MG/5 ML SYR IV ONE (10:18)
[2020-04-28] MEDS: ASPIRIN EC 81 MG TAB PO SCH (12:02)
[2020-04-28 12:17] VITALS: BP 138/71; TEMP 97.9
--- NOTE | 2020-04-28 12:18 | RAD REPORT ---
EXAM DESCRIPTION: NM - Rest Stress Cardiac Imaging - 04/28/2020 12:06 pm CLINICAL HISTORY: CP Chest pain. COMPARISON: Rest Stress Cardiac Imaging dated 10/22/2016 TECHNIQUE: The patient was administered approximately 10mCi of Tc 99m Sestamibi prior to resting SPE CT imaging of the heart. The patient was then administered approximately 30 mCi of Tc 99m Sestamibi f ollowing exercise or pharmacologic stress. Multiplanar SPECT images were reviewed. FINDINGS: No stress induced ischemic defect is seen to suggest stress induced ischemia. No fixed def ect is seen to suggest hibernating myocardium or scarred myocardium. The end diastolic volume is 45 ml, the end systolic volume is 17 ml, and the ejection fraction is 62 %. IMPRESSION: No stress induced ischemia.
--- NOTE | 2020-04-28 12:34 | P.DS ---
Admission Date: 04/27/20 Discharge Date: 04/28/20 Disposition: ROUTINE DISCHARGE Discharge Condition: FAIR Reason for Admission: Chest pain - Problems (1) Chest pain Onset Date: 10/21/16 Current Visit: No Status: Acute (2) GERD (gastroesophageal reflux disease) Onset Date: 10/21/16 Current Visit: No Status: Acute (3) Chronic back pain Current Visit: Yes Status: Acute Brief History of Present Illness: 64-year-old woman with a history of renal cancer status post nephrectomy presented to the emergency department with a complaint of chest pain of onset yesterday. Patient describes intermittent chest pain, maximum intensity 5/10, located in the anterior mid sternal area, no known relieving or aggravating factors. She stated the chest pain woke her up from sleep last night. Initial troponin in the ED was negative. EKG demonstrated sinus rhythm with no ischemic changes. Chest x-ray showed no acute abnormality. She had a similar chest pain episode 3 years ago and had a stress test done which was negative. Patient was placed under observation for ACS rule out. Hospital Course: Troponin trended came back negative. Nuclear stress test was performed which did not show any stress-induced ischemia. Patient was chest pain-free during the hospital stay and clinically stable for discharge. Vital Signs/Physical Exam: Temp Pulse Resp BP Pulse Ox 97.9 F 76 16 138/71 98 04/28/20 12:00 04/28/20 12:00 04/28/20 12:00 04/28/20 12:00 04/28/20 12:00 General: Alert, In no apparent distress, Oriented x3 HEENT: Mucous membr. moist/pink Neck: Supple, JVD not distended Respiratory: Clear to auscultation bilaterally, Normal air movement Cardiovascular: No edema, Regular rate/rhythm, Normal S1 S2 Gastrointestinal: Normal bowel sounds, Soft and benign, Non-distended, No tenderness Integumentary: No rashes Neurological: Other (Nonfocal) Laboratory Data at Discharge: WBC 5.6 K/uL (4.3-10.9) D 04/28/20 05:19 Hgb 14.7 g/dL (12.0-15.0) 04/28/20 05:19 Hct 42.0 % (36.0-45.0) 04/28/20 05:19 Plt Count 205 K/uL (152-406) 04/28/20 05:19 PT 10.7 SECONDS (9.5-12.5) 04/27/20 04:45 INR 0.91 04/27/20 04:45 Sodium 144 mmol/L (136-145) 04/28/20 05:19 Potassium 4.2 mmol/L (3.5-5.1) 04/28/20 05:19 BUN 13 mg/dL (7-18) 04/28/20 05:19 Creatinine 1.26 mg/dL (0.55-1.3) 04/28/20 05:19 Glucose 80 mg/dL (74-106) 04/28/20 05:19 Magnesium 2.2 mg/dL (1.8-2.4) 04/27/20 04:45 Total Bilirubin 0.5 mg/dL (0.2-1.0) 04/27/20 04:45 AST 17 U/L (15-37) 04/27/20 04:45 ALT 22 U/L (12-78) 04/27/20 04:45 Alkaline Phosphatase 78 U/L (45-117) 04/27/20 04:45 Troponin I < 0.02 ng/mL (0.0-0.045) 04/27/20 15:16 Triglycerides 46 mg/dL (<150) 04/27/20 11:16 Cholesterol 114 mg/dL (<200) 04/27/20 11:16 HDL Cholesterol 73 mg/dL (40-60) H 04/27/20 11:16 Cholesterol/HDL Ratio 1.56 04/27/20 11:16 Home Medications: Sunitinib Malate [Sutent] 1 cap PO DAILY 04/27/20 Diet: AHA Activity: Ad sulaiman
--- NOTE | 2020-05-01 09:01 | TREADPHA ---
DX: CHEST PAIN Date of Study: 04/28/2020 Ht: 5' 5 " Wt: 235 lb 0 oz Consulting Physician: BARB MEDICATIONS: ASPIRIN, LOVENOX, NITROSTAT HISTORY: 64 YEAR OLD FEMALE WITH COMPLAINTS OF CHEST PAIN. MEDICAL HISTORY OF RIGHT KIDNEY REMOVAL DUE TO CANCER. PHYSICIAL EXAMINATION: RESTING B.P.: 151/89 RESTING H.R.: 65 RESTING EKG: NORMAL PROTOCOL: LEXISCAN EXERCISE TIME: 3:30 B.P. AT PEAK STRESS: 153/88 IMPRESSION: LEXISCAN INJECTED CARDIOLITE INJECTED PER PROTOCOL. SEE NUCLEAR MEDICINE REPORT. NO SUPRA VENTRICULAR TACHYCARDIA. NO VENTRICULAR TACHYCARDIA. NO PREMATURE VENTRICULAR COMPLEXES. DENIED CHEST PAIN.
== END 2020-04-28 17:14 | disposition home or self-care (01) ==
LOC: ER 04:23 → ERHOLD 08:09 → 2ND 10:08
PROVIDERS: ADMIT Internal Medicine; ATTEND Internal Medicine
DX: R07.9 Chest pain, unspecified (principal); K21.9 Gastro-esophageal reflux disease without esophagitis; M54.9 Dorsalgia, unspecified; G89.29 Other chronic pain; F03.90 Unspecified dementia, unspecified severity, without behavioral disturbance, psychotic disturbance, mood disturbance, and anxiety; Z20.828 Contact with and (suspected) exposure to other viral communicable diseases; Z85.53 Personal history of malignant neoplasm of renal pelvis; Z90.5 Acquired absence of kidney; Z87.891 Personal history of nicotine dependence; Z88.1 Allergy status to other antibiotic agents; Z80.1 Family history of malignant neoplasm of trachea, bronchus and lung
CPT/HCPCS: 93005; 93017; 85025 ×2; 80048 ×2; 36415 ×2; 83735; 85610; 80061; 80076; 84484 ×3; 83880; 71045; 78452; 99285; U0002; J1650; J2785; A9500; G0378

== ENCOUNTER 2020-06-21 13:10 | Inpatient (IN) | payer OTHER ==
--- OUTSIDE RECORDS SUMMARY | 2020-06-21 13:27 | XMS REPORT | Clinical Summary ---
:1955 Author Organization [facility] Address [address] [place] [address] Care Team Providers Name Role Phone Moncoh Magdaleno MD Primary Care Provider Allergies Active Allergy Reactions Severity Noted Date Comments Shrimp Anaphylaxis High 01/27/2020 Medications Medication Sig Dispensed Refills Start Date End Date Status traMADoL (ULTRAM) 50 Take 50 mg 0 02/07/20 Discontinued mg tablet by mouth 20 (Error) every 6 (six) hours as needed for Pain. nitrofurantoin, Take 1 6 capsule 0 01/28/2020 01/31/20 Exp ired macrocrystal-monohyd capsule (100 20 rate, (MACROBID) 100 mg total) by MG capsule mouth 2 (two) times daily for 3 days. tamsulosin (FLOMAX) Take 1 7 capsule 0 01/28/2020 02/04/20 0.4 mg Cap 24 hr capsule (0.4 20 capsule mg total) by mouth daily for 7 days. phenazopyridine Take 1 10 tablet 0 01/28/2020 01/31/20 Exp ired (PYRIDIUM) 200 MG tablet (200 20 tablet mg total) by mouth 3 (three) times daily as needed for up to 3 days. ondansetron (ZOFRAN) Take 1 30 tablet 0 01/29/2020 02/05/20 4 MG tablet tablet (4 mg 20 total) by mouth 2 (two) times daily as needed for Nausea for up to 7 days. acetaminophen Take 650 mg 0 02/09/20 Disc ontinued (TYLENOL) 325 MG by mouth 20 (St op Taking at tablet every 6 Discharge) (six) hours as needed for Pain. traMADoL (ULTRAM) 50 Take 50 mg 0 02/09/20 Discontinued mg tablet by mouth 20 (Stop Taki ng at every 6 Discharge) (six) hours as needed for Pain. docusate sodium Take 1 20 capsule 0 02/09/2020 02/19/20 Ex pired (COLACE) 100 MG capsule (100 20 capsule mg total) by mouth 2 (two) times daily for 10 days. acetaminophen-codein Take 1 20 tablet 0 02/09/2020 02/14/20 e (TYLENOL-CODEINE tablet by 20 #3) 300-30 mg per mouth every tablet 4 (four) hours as needed for Pain for up to 5 days. Max Daily Amount: 6 tablets Active Problems Problem Noted Date Right renal mass 02/08/2020 Nausea & vomiting 01/29/2020 Vomiting 01/29/2020 Renal mass 01/28/2020 Encounters Date Type Specialty Care Team Description 05/10/2020 Outside Orders Central Scheduling May Mccallum Maligna nt neoplasm of MD Paulo right kidney (H CC) (Primary Dx) 03/21/2020 Hospital Encounter Computed May Mccallum Malignant neoplasm of Tomography [facility] Encounter Computed May Mccallum Malignant neoplasm of Tomography MD [facility] 03/14/2020 Outside Orders Central Scheduling May Mccallum Maligna nt neoplasm of MD Paulo right kidney (H CC) (Primary Dx) 02/08/2020 Surgery Colten Sorto LAPAROSCOPY,NE PHRECTOM MD Timothy Y 02/08/2020 Anesthesia Event Mahesh Nelson MD Wee, Elissa Thompson, 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 02/08/2020 - Hospital Encounter General Internal Colten [...] MD Timothy (Primary Dx) 01/29/2020 Emergency Cardiology Mir Stark, Abdominal pa in, unspecified abdominal location (Primary Dx); Nausea and vomiting, intractability of v omiting not specified, unspecified vomiting type Matthew Ho MD 01/28/2020 Anesthesia Event Aaron Elkins MD Nasrallah, Kyle, MD 01/28/2020 Surgery Joseph Jeronimo CYSTOSCOPY,URET EROSCOP MD Romero Y 01/28/2020 Hospital Encounter Joseph Jeronimo MD 01/28/2020 Travel 01/27/2020 Hospital Encounter Pre-Admission Testing after 06/21/2019 Social History Tobacco Use Types Packs/Day Years [...] Assigned at Date Recorded Not on file Last Filed Vital Signs Vital Sign Reading Time Taken Comments Blood Pressure 140/63 02/09/2020 12:53 PM CDT Pulse 77 02/09/2020 12:53 PM CDT Temperature 36.6 C (97.8 F) 02/09/2020 12:53 PM CDT Respiratory Rate 18 02/09/2020 12:53 PM CDT Oxygen Saturation 96% 02/09/2020 12:53 PM CDT Inhaled Oxygen Concentration - - Weight 104.1 kg (229 lb 9.6 oz) 02/08/2020 5:38 AM CDT Height 165.1 cm (5' 5") 02/08/2020 5:38 AM CDT Body Mass Index 38.21 02/08/2020 5:38 AM CDT Plan of Treatment Health Maintenance Due Date Last Done Comments BREAST CANCER SCREENING 1955 COLON CANCER SCREENING COLONOSCOPY 1955 CERVICAL CANCER SCREENING PAP ONLY (Age 21-65) 1976 LIPID PANEL 2000 INFLUENZA VACCINE (#1) 2020 Implants Implanted Type Area Software Quality Assurance Specialist Device Identifier Shelf Model / Expiration Serial / Date Lot Set Stent Injection 6x24cm [id number] - [id number] IMPLANTS Rig ht: SUPRIYA [id number] 05/11/2021 [id number] / Implanted: Qty: 1 on 01/28/2020 by Joseph Godoy MD at [facility] [employer] SCI:ONCOLOGY / [id number] Procedures Procedure Name Priority Date/Time Associated Comments [...] i n the results section. LAPAROSCOPY,NEPHRECTO 02/08/2020 6:57 Renal mass MY AM CDT Case Notes 3 HRS PER NAKITA Special Needs (5MM DEFLECTABLE LAPAROSCOPE , AIR SEAL) Checked by Noemí COLE MANUAL STAT 02/08/2020 6:02 AM Results for this CDT procedure are i n the results section. TYPE AND SCREEN, Routine 02/08/2020 5:52 AM Resu lts for this AUTOMATED CDT procedure are i n the results section. XR CHEST 2 VIEWS Routine 02/04/2020 11:08 AM Renal mass, right Results for this CDT procedure are i n the results section. SARS-COV2/RT-PCR ([facility] Routine 02/04/2020 10:52 AM Pre-op test [...] i n the results section. CYSTOSCOPY,INSERTION 01/28/2020 12:52 PM Kidney mass URETERAL STENTS CDT CYSTOSCOPY,URETEROSCOP 01/28/2020 12:52 PM Kidney mass Y CDT after 06/21/[address] Abdomen/Pelvis with IV Contrast (03/21/2020 2:56 PM CDT) Specimen Narrative Performed At FINAL REPORT i[facility] TECHNIQUE: CT of the chest, abdomen, and [...] Sergei Coates MD Report Verified Date/Time: 03/21/2020 15:37:07 Reading Location: [facility] [address] [place] [address] Reading Room Procedure Note Interface, External Ris [...] cm. Mild degenerative disc changes of the reuebn mbar spine. IMPRESSION: 1.No recurrent or metastatic [...] Verified Date/Time: 03/21/2020 1 5:37:07 Reading Location: [facility] C013X [facility] Reading Room Performing Organization Address City/State/Zipcode Phone Number [facility] CT Chest with IV Contrast (03/21/2020 2:56 PM CDT) Specimen Narrative Performed At FINAL REPORT [facility] TECHNIQUE: CT of the chest, abdomen, and [...] Sergei Coates MD Report Verified Date/Time: 03/21/2020 15:37:07 Reading Location: [address] Reading Room Procedure Note Interface, External [...] Verified Date/Time: 03/21/2020 1 5:37:07 Reading Location: [facility] B1 C013X Ortho Con sult Reading Room Performing Organization Address City/State/Zipcode Phone Number GE RIS POC-Creatinine (03/21/2020 2:31 PM CDT) POC-Creatinine 1.1Comment: : 0.6 - 1.3 [facility] TESTED AT [facility] mg/dL [facility] [address] [address]: Milieu Coordinator/Technicia n ID = [id number] for DYANA ESCOBEDO POC-EGFR 50 mL/min/1.73M2 [facility] Specimen Blood Performing Organization Address City/[facility]/Zipcode Phone Number [facility] [address] [place] [address] CENTER TRANSFUSION SERVICE REPORT - SCAN (02/09/2020 6:00 PM CDT) Narrative Performed At This result has an attachment that is no t available. CBC with platelet count + automated diff (02/09/2020 3:42 AM CDT)Only the most recent of3 resultswithin the time period is included. Pathologist Sig nature WBC 14.4 (H) 3.5 - 10.5 [facility] K/L [facility] RBC 4.03 3.93 - 5.22 [facility] M/L [facility] Hemoglobin 12.4 11.2 - 15.7 [facility] GM/DL [facility] Hematocrit 37.9 34.1 - 44.9 % [facility] MCV 94.0 79.4 - 94.8 fL [facility] MCH 30.8 25.6 - 32.2 pg [facility] MCHC 32.7 32.2 - 35.5 [facility] GM/DL [facility] RDW 13.1 11.7 - 14.4 % [facility] Platelets 296 150 - 450 K/CU [facility] MPV 9.1 (L) 9.4 - 12.3 fL [facility] nRBC 0 0 - 0 /100 WBC [facility] % Neutros 83 % [facility] % Lymphs 9 % [facility] % Monos 7 % [facility] % Eos 0 % [facility] % Baso 0 % [facility] # Neutros 11.89 (H) 1.56 - 6.13 [facility] # Lymphs 1.31 1.18 - 3.74 [facility] # Monos 1.06 (H) 0.24 - 0.36 [facility] # Eos 0.00 (L) 0.04 - 0.36 [facility] # Baso 0.03 0.01 - 0.08 [facility] Immature 0 0 - 1 % [facility] C[facility] Specimen Blood Performing Organization Address City/State/Zipcode Phone Number [facility] [address] [place] [address] CENTER Basic metabolic panel (02/09/2020 3:42 AM CDT)Only the most recent of3 results within the time period is included. Sodium 140 136 - 145 meq/L [facility] Potassium 3.9 3.5 - 5.1 meq/L [facility] Chloride 112 (H) 98 - 107 meq/L [facility] CO2 23 22 - 29 meq/L [facility] BUN 12 7 - 21 mg/dL [facility] Creatinine 1.09 0.57 - 1.25 [facility] mg/dL [facility] Glucose 107 (H) 70 - 105 mg/dL [facility] Calcium 7.9 (L) 8.4 - 10.2 [facility] mg/dL [facility] EGFR 51Comment: ESTIMATED mL/min/1.[address] [facility] GFR IS NOT m [facility] CREATININE CLEARANCE IN PREDICTING GLOMERULAR FILTRATION RATE. ESTIMATED GFR IS NOT APPLICABLE FOR DIALYSIS PATIENTS. Specimen Blood Narrative Performed At Milieu Coordinator ID - YOJANA B [facility] MED [facility]AL [facility] Performing Organization Address City/State/Zipcode Phone Number [facility] [address] [place] [address] CENTER Tissue Exam (02/08/2020 12:04 PM CDT) Case Report Surgical Pathology Report Case: [id number] [facility] Authorizing Provider: Colten Smith MD Collected: 02/08/2020 12:04 PM [facility] Ordering Location: [facility] H PERIOPERATIVE Received: 02/08/2020 01:50 PM [facility]ICAL [facility] SERVICES Pathologist: Karoline Flores MD Specimens: A) - Kidney, R ight B) - Lymp h Node, RIGHT PERITONEAL LYMPH NODES DIAGNOSIS A. KIDNEY, RIGHT, LAPAROSCOPIC RADICAL NEPHRECTOMY: 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 RIGHT RETROPERITONEAL LYMPH NODES, DISSECTION: - NINE BENIGN LYMPH NODES (0/9) - NEGATIVE FOR MALIGNANCY - SEE COMMENT - SEE SYNOPTIC REPORT Signing Pathologist Direct Phone Line: [phone] SYNOPTIC REPORT KIDNEY: Nephrectomy (Kidney - All Specimens) [facility] 8th Edition - Protocol posted: 04/14/2019 MEDICAL CENTER SPECIMEN Procedure: Radical nephrectomy Specimen Laterality: Right TUMOR Tumor Site: Middle Histologic Type: Clear cell renal cell carcin ava Histologic Grade: G 2: Nucleoli conspicuous and eosinophilic at 400x magnification, visible but not prominent at 100x magnification Tumor Size: Greatest Dimension (Centimeters): 4.5 cm Additional Dimension (Centimeters): 3.3 cm Additional Dimension (Centimeters): 2.3 cm Tumor Focality: Unifocal Tumor Extension: Tumor extension into renal s inus Sarcomatoid Features: Not identified Rhabdoid Features: Not identified Tumor Necrosis: Not identified Lymphovascular Invasion: Present MARGINS Margins: Uninvolved by invasive carcinoma LYMPH NODES Number of Lymph Nodes Involved: 0 Number of Lymph Nodes Examined: 9 PATHOLOGIC STAGE CLASSIFICATION (pTNM, AJCC 8th Editio n) Primary Tumor (pT): pT3a Regional Lymph Nodes (pN): pN0 ADDITIONAL FINDINGS Pathologic Findings in Nonneoplastic Kidney: None identified CPT Code(s) 96057 X 2 [facility] CLINICAL HISTORY Renal mass [facility] SPECIMEN SOURCE A. Kidney, right [facility] B. Right peritoneal lymph nodes [facility] GROSS DESCRIPTION A. Received fresh labelled w ith the patients name, medical record number and "kidney, right" is a 774 g, 24 x 14.5 x 7.5 cm radical nephrectomy. The ureter is 7.5 cm in length and 0.3 cm in diameter, [facility] and the kidney is 11.5 x 6. 7 x 5.7 cm. The adrenal gland is absent. There is an abundant amount of attached perinephric fat. [facility] The kidney capsule is pink a nd [...] 0.9 cm. Lymph nodes are not identified. Director Information Security sections are submitted. Ink code: Green: Renal vein Blue: Outer surface of specimen Section code: A1: Ureter and vascular margins, en face A2-A3: Mass to vein and renal sinus A4-A7: Mass to renal sinus A8: Mass to kidney capsule and Gerota's fascia A 9: Mass with hemorrhage to uninvolved renal parenchy ma A 10: Mass with hemorrhage to renal [...] 1 possible lymph node bisected in each cassette B5-B6 1 lymph node, bisected B7: 2 intact lymph nodes B8: Remainder of specimen ADITHYA John PA (ASCP) MICROSCOPIC PERFORMED [facility] Specimen Tissue - Right kidney structure (body st ructure) Tissue specimen (specimen) - Structure o f lymph node (body structure) Performing Organization Address [facility] Cent[facility]ode Phone Number [address] [address] CENTER ABORH, manual (02/08/2020 6:02 AM CDT) Pathologist Sig nature ABO Grouping O [facility] Rh Factor POS [facility] Specimen Blood Performing Organization Address [facility] Centercode Phone Number [address] [address] Type and screen, automated (02/08/2020 5:52 AM CDT) Pathologist Sig nature ABO/RH AUTOMATED O POSITIVE [facility] Ab Scrn NEGATIVE [facility] Specimen Blood Performing Organization Address [facility] Centercode Phone Number [address] [address] XR Chest 2 Views (02/04/2020 11:08 AM CDT) Specimen Narrative Performed At FINAL REPORT [facility] TECHNIQUE: Frontal and lateral chest rad iographs [...] Cm Young MD Report Verified Date/Time: 02/04/2020 11:51:56 Reading Location: [address] Reading Room Procedure Note Interface, [...] Verified Date/Time: 02/04/2020 1 1:51:56 Reading Location: [address] Rad[address] Reading Room Performing Organization Address City/State/[facility] Centercode Phone Number [facility] SARS-CoV2/RT-PCR (HS & Ref Labs) (02/04/2020 10:52 AM CDT) SARS-COV2/RT-PCR Negative Not Detected, [facility] Negative NON-INTERFACED REFERENCE LABS SARS-COV-2 CPL [facility] PERFORMING LAB NON-INTERFACED REFERENCE LABS Specimen Other - Nasopharyngeal wall structure (b lovely structure) Performing Organization Address City/[facility]/Zipcode Phone Number [facility] NON-INTERFACED REFERENCE LABS RHYTHM STRIP - SCAN (02/02/2020 2:11 PM CDT) Narrative Performed At This result has an attachment that is no t available. US renal complete (01/29/2020 10:54 AM CDT) Specimen Narrative Performed At FINAL REPORT [facility] Renal ultrasound dated 01/29/2020 Comment: Real-time transabdominal juan l ultrasound was performed. Right kidney measures 11 x 5.9 x 4.7 cm. Left kidney measures 11.2 x 4.5 x 4.2 cm. Right renal cortex measu res 1.0 cm. Left renal cortex measures 0.7 cm. Echogenicity of both renal parenchyma is normal. No hydronephrosis, solid or cystic mass seen. The urinary bladder is contracted. Doppler ultrasound demonstrates patent m ain renal artery and vein bilaterally. Impression: Unremarkable renal ultraso und without hydronephrosis. Signed: Saira Cantrell MD Report Verified Date/Time: 01/29/2020 15:21:36 Reading Location: [facility] C013[facility] Con [facility] Reading Room Procedure Note Interface, External Ris [...] Verified Date/Time: 01/29/2020 1 5:21:36 Reading Location: [facility] C013X Ortho Con sult Reading Room Performing Organization Address City/State/Zipcode Phone Number [facility] Urinalysis w/Microscopic (01/29/2020 5:46 AM CDT) Color, UA [facility] Clarity, UA Hazy [facility] Specific [place], 1.023 1.001 - 1.035 [facility] pH, UA 6.0 5.0 - 8.0 [facility] Protein, UA 100 mg/dL (A) Negative [facility] Glucose, UA Negative Negative [facility] Ketones, UA 80 mg/dL (A) Negative [facility] Bilirubin, UA Negative Negative [facility] Blood, UA Large (A) Negative [facility] Nitrite, UA Negative Negative [facility] Leukocytes, UA Moderate (A) Negative [facility] Urobilinogen, UA 0.2 0.2 - 1.0 mg/dL [facility] RBC, UA 2,181 /HPF [facility] WBC, UA 30 /HPF [facility] Mucus Occasional [facility] Squam Epithel, UA 2 /HPF [facility] Specimen Source [facility] Specimen Urine Narrative Performed At Milieu Coordinator ID - [auto] [facility] Milieu Coordinator ID - tech Performing Organization Address City/State/Zipcode Phone Number [facility] [address] [place] [address] [facility] fluoro non-specific up to 1 hour (01/28/2020 2:34 PM CDT) Specimen Narrative Performed At FINAL REPORT GE [facility] Technique: Fluoroscopic images dated 01/16 History: Right stent placement COMPARISON: None IMPRESSION: Total fluoroscopy time is 0.9 minutes. T otal number of images is 13. Images reveal placement of a right doubl e-J ureteral stent. Please see operative report for details. Signed: Cm Young MD Report Verified Date/Time: 01/28/2020 15:09:04 Reading Location: [facility] Radiolog y Reading Room Procedure Note Interface, [...] Verified Date/Time: 01/28/2020 1 5:09:04 Reading Location: [facility] Radiolog y Reading Room Performing Organization Address City/State/Zipcode Phone Number GE RIS after 06/21/2019 Insurance Payer Benefit Plan / Subscriber ID Effective Dates Phone Addre ss Type Group BLUE BCBS PPO POS [id number] 2019-Presen [phone] [address] PPO CROSS/BLUE EPO CHOICE t 2 [facility] [phone] CDC REVIEW CDC REVIEW [id number] 2020-[place] [address] [place] [address] Advance Directives For more information, please contact: [phone] Code Status Date Activated Date Inactivated Comments Full Code 02/08/2020 3:31 PM 02/09/2020 6:29 PM This code status was determined by: Patient Full Code 01/29/2020 5:20 AM 01/29/2020 8:51 PM This code status was determined by: Patient
--- OUTSIDE RECORDS SUMMARY | 2020-06-21 13:28 | XMS REPORT | Continuity of Care Document ---
:[address] [facility] t Address [address] [place] [address] Care Team Providers Name Role Phone Rasta EVANS [facility] Paulo Mcfarland MD Attending Clinician Paulo Mcfarland MD Attending Clinician , [place] [facility] Room Attending Clinician Unavailable PAULO MCFARLAND Attending Clinician Unavailable TIMOTHY RAMOS Attending Clinician Unavailable Timothy Ramos MD Attending Clinician Paul Nelson MD Attending Clinician Donna Nolasco CRNA Attending Clinician Timothy Ramos MD Attending Clinician Carolina EVANS Attending Clinician Noemí Lynn MD Attending Clinician CAROLINA Attending Clinician Unavailable Romero Jeronimo MD Attending Clinician Yeimy Elkins MD Attending Clinician Raymundo EVANS Attending Clinician Yesi Jeronimo MD Attending Clinician TIMOTHY RAMOS Admitting Clinician Unavailable Noemí LYNN Admitting Clinician Unavailable Payers Payer Name Policy Type Policy Effective Date Expiration Date Sour ce Number BLUE CROSS/BLUE [id number] [address] [facility] SHIELDBCBS PPO 00:00:00 - Medical POS EPO Center [id number] 2019-Present [phone] [id number], [place] [address]GN [facility] REVIEWCDC [id number] [facility] [id number]/ 00:00:00 - Medic al 03/2020-PresentPO Center [facility] [place] [address] Problems Condition Condition Condition Status Onset Resolution Last Treating Co mments Source Name Details Category Date Date Treatment Clinician Date Right Right Disease Active [facility] mass renal mass 02-07 Jeanie kes - 00:00: Medical 00 Center Nausea & Nausea & Disease Active [facility] vomiting [facility] - [facility] Center Vomiting Vomiting Disease Active [facility] - 00:[facility]: Medical 00 [place] Renal mass Renal mass Disease Active [facility] 6[facility]12 [facility] - 00:00: Medical 00 Center Allergies, Adverse Reactions, Alerts Allergy Allergy Status Severity Reaction(s) Onset Inactive Treating Comm ents Source Name Type Date Date Clinician Shrimp Propensi Active Anaphylaxis [facility] - adverse 00:00: Medical reaction 00 Center s Social History Social Habit Start Date Stop Date Quantity Comments Source History of tobacco Current sm[facility] use Medical [facility] History SDOH [facility] - Alcohol Std Drinks Medica l Center History SDOH [facility] - Alcohol Binge Medical [facility] ter Sex Assigned At [facility] Jeanie kes - [facility] Cigarettes smoked 2020-02-08 2020-02-[address] [facility] - current (pack per 00:00:00 00:00:00 Medical Center day) - Reported Cigarette 2020-02-08 2020-02-[address] [facility] - pack-years 00:00:00 00:00:00 [facility] Tobacco use and 2020-02-08 2020-02-[address] Jeanie kes - exposure 00:00:00 00:00:00 [facility] Alcohol intake 2020-02-08 2020-02-[address] [facility] - 00:00:00 00:00:00 non-drinker of Medical Ce nter alcohol (finding) History SDOH 2020-01-27 2020-01-[address] [facility] - Alcohol Frequency 00:00:00 00:00:00 Medical Center Smoking Status Start Date Stop Date Source Former smoker 2020-02-08 00:00:00 2020-02-08 00:00:[address] [facility] Medications Ordered Filled Start Stop Current Ordering Indication Dosage Frequency Signature Comments Components Source Medication Medication Date Date Medication? Clinician (SIG) Name Name acetaminoph 2019- No 650mg Take [address] en 02-08-24 mg by [facility] - (TYLENOL) 15:17: 00:00 mouth Medica l 325 MG 20 :00 every 6 Center tablet (six) hours as needed for Pain. traMADoL 2019- No 50mg Take [address] (ULTRAM) 50 02-08 by mouth [place] [facility] - mg tablet 15:17: 00:00 every 6 Medi korey 20 :00 (six) Center hours as needed for Pain. docusate 2019-2019- No 100mg Q.5D Take 1 [facility] t sodium 02-08-04 capsule [facility] - (COLACE) 00:00: 23:59 (100 mg Medic al 100 MG 00 :00 total) by Center capsule mouth 2 (two) times daily for 10 days. acetaminoph 2019- No 1{tbl} Take [address] en-codeine 02-08-29 tablet by [place] [facility] - (TYLENOL-CO 00:00: 23:59 mouth Medi korey DEINE #3) 00 :00 every 4 Center 300-30 mg (four) per tablet hours as needed for Pain for up to 5 days. Max Daily Amount: 6 tablets traMADoL 2019- No 50mg Take [address] (ULTRAM) 50 02-0622 by mouth [place] [facility] - mg tablet 14:18: 00:00 every 6 Medi korey 41 :00 (six) Center hours as needed for Pain. ondansetron 2020- No 4mg Take [address] (ZOFRAN) 4 01-28 06-20 tablet (4 [place] [facility] - MG tablet 00:00: 23:59 mg total) Me dical 00 :00 by mouth 2 Center (two) times daily as needed for Nausea for up to 7 days. tamsulosin 2019- No .4mg QD Take [address] (FLOMAX) 01-27 capsule [facility] - 0.4 mg Cap 00:00: 23:59 (0.4 mg Med ical 24 hr 00 :00 total) by [place] capsule mouth daily for 7 days. nitrofurant No 100mg Q.5D Take [address] oin, 01-27 capsule [facility] - macrocrysta 00:00: 23:59 (100 mg Me dical l-monohydra 00 :00 total) by [facility] ter te, mouth 2 (MACROBID) (two) 100 MG times capsule daily for 3 days. phenazopyri No 200mg Take [address] dine 01-27 tablet [facility] - (PYRIDIUM) 00:00: 23:59 (200 mg Med ical 200 MG 00 :00 total) by [place] tablet mouth 3 (three) times daily as needed for up to 3 days. Vital Signs Vital Name Observation Time Observation Value Comments Source Systolic blood 2020-02-09 12:53:00 140 mm[Hg] [facility] Diastolic blood 2020-02-09 12:53:00 63 mm[Hg] [facility] Heart rate 2020-02-09 12:53:00 77 /min [facility] Body temperature 2020-02-09 12:53:00 36.56 Carmen [facility] Respiratory rate 2020-02-09 12:53:00 18 /min [facility] Oxygen saturation in 2020-02-09 12:53:00 96 /min [facility] Arterial blood by Medical Ce nter Pulse oximetry Body height 2020-02-08 05:38:00 165.1 cm [facility] Body weight 2020-02-08 05:38:00 104.146 kg [facility] BMI 2020-02-08 05:38:00 38.21 kg/m2 [facility] Procedures Procedure Date / Time Performed Performing Clinician [facility] e CT ABDOMEN/PELVIS WITH 2020-03-21 14:56:00 May Mcfarland [facility] - IV CONTRAST [facility] CT CHEST WITH IV 2020-03-21 14:56:00 YeMay marmolejo [facility] CONTRAST [facility] POCT-CREATININE 2020-03-21 14:31:00 May Mcfarland [facility] TRANSFUSION SERVICE 2020-02-09 18:00:53 Provider, Salvador [facility] REPORT - SCAN Scanning [facility] BASIC METABOLIC PANEL 2020-02-09 03:42[facility]00 [facility] CBC W/PLT COUNT & AUTO 2020-02-09 03:42:00 [facility] Roger [facility] BASIC METABOLIC PANEL 2020-02-08 17:32:00 [facility] Rogeraric Gonzales [facility] () [facility] CBC W/PLT COUNT & AUTO 2020-02-08 13:21:[address] [facility] TISSUE EXAM 2020-02-08 12:04:00 Colten Ramos [facility] LAPAROSCOPY,NEPHRECTOMY 2020-02-08 06:57:00 Colten Ramos [facility] ABORH, MANUAL 2020-02-08 06:02:00 Verenice Morse [facility] TYPE AND SCREEN, 2020-02-08 05:52:[address] [facility] AUTOMATED [facility] XR CHEST 2 VIEWS 2020-02-04 11:08:00 Colten Ramos [facility] SARS-COV2/RT-PCR ([facility] & 2020-02-04 10:52:00 Colten Ramos [facility] - REF LABS) [facility] RHYTHM STRIP - SCAN 2020-02-02 14:11:50 Provider, Default [facility] US RENAL COMPLETE 2020-01-29 10:54:00 Greg Frias [facility] URINALYSIS W/ 2020-01-29 05:46:00 [facility] BASIC METABOLIC PANEL 2020-01-29 02:04:00 [facility] (7) [facility] CBC W/PLT COUNT & AUTO 2020-01-29 02:04:00 ThestruMir key [facility] DIFFERENTIAL [facility] FL FLUORO NON-SPECIFIC 2020-01-28 14:34:00 [facility]imo [facility] 1 HOUR [facility] CYSTOSCOPY,URETEROSCOPY 2020-01-28 12:52:00 Joseph Jeronimo [facility] - [facility] CYSTOSCOPY,INSERTION 2020-01-28 12:52:00 Joseph Jeronimo CHI t j[facility] - URETERAL STENTS [facility] Plan of Care Planned Activity Planned Date Details Comments Source Future Scheduled 2020-04-[address] [facility] - Test 00:00:00 (#1) [code = [facility] INFLUENZA VACCINE (#1)] Future Scheduled [address] [facility] - Test 00:00:00 (procedure) [code = [facility] 51785366] Future Scheduled [address] [facility] - Test 00:00:00 malignant neoplasm Medical C enter of cervix (procedure) [code = 545096296] Future Scheduled [address] [facility] - Test 00:00:00 malignant neoplasm Medical C enter of breast (procedure) [code = 235070288] Future Scheduled [address] [facility] - Test 00:00:00 malignant neoplasm Medical C enter of colon (procedure) [code = 969130300] Encounters Start End Encounter Admission Attending Care Care Encounter Source Date/Time Date/Time Type Type Clinicians Facility Department ID 2020-04-04 2020-04-04 Office Rita Mcfarland [facility] [id number] 10:27:45 11:31:09 Visit [place] Josse [id number] [id number] 2020-03-14 2020-03-14 Office Rita Mcfarland [facility] [id number] 13:41:54 14:46:38 Visit [place] Josse [id number] [id number] 2020-02-03 2020-02-03 Office KEYONA Ramos [id number] 14:23:24 14:38:24 Visit Colten Aguirre AMBULATOR [id number] Y 0.2.7.2.686 [id number] 2020-01-18 2020-01-18 Office KEYONA Jeronimo [id number] 14:01:19 16:33:11 Visit Joseph Key AMBULATOR [id number] Y 0.2.7.2.686 [id number] 2020-01-11 2020-01-11 Office KEYONA Jeronimo [id number] 13:41:37 13:58:07 Visit Joseph Key AMBULATOR [id number] Y 0.2.7.2.686 [id number] Results Test Description Test Time Test Comments Results Result [facility] e Comments CT, ABDOMEN 2020-03-21 FINAL [...] thyroid ultrasound is recommended. Signed: Sergei Coates [facility] Verified Date/Time: 03/21/2020 15:37:07 Reading Location: [address] Consult Reading Room , CHEST, WITH 2020-03-21 [...] MDReport Verified Date/Time: 03/21/2020 15:37:07 Reading Location: [facility] B[facility] C013X Ortho Consult Reading Room Chest with IV 2020-03-21 Interface, External [facility] Contrast 15:37:00 Ris In - 03/21/2020 - Med ical 3:39 PM [facility] REPORT TECHNIQUE: CT of the chest, [...] MDReport Verified Date/Time: 03/21/2020 15:37:07 Reading Location: [facility] C013X Ortho Consult Reading Room Abdomen/Pelvis 2020-03-21 Interface, External [facility] with IV Contrast 15:37:00 Ris In - 03/21/2020 - Medical 3:39 PM [facility]: CT of the chest, [...] MDReport Verified Date/Time: 03/21/2020 15:37:07 Reading Location: [address] Ortho Consult Reading Room -Creatinine 2020-03-21 14:48:00 Test Item Value Reference Range Interpretation Comme nts POC-Creatinine (test code = 1.1 mg/dL 0.6-1.3 : TESTED AT [facility] [address]) [facility] [address]: Warehouse Team Leader/Techni yahaira ID = [id number] for Frances ESCOBEDO POC-EGFR (test code = 1860) 50 mL/min/1.73M2 [id number] 14:48:00 Test Item Value Reference Range Interpretation Comments POC-CREATININE 1.1 mg/dL 0.6-1.3 : TESTED AT [facility] ([facility]) (test [address] [facility] code = 1859) [facility] 7 [address]62: Warehouse Team Leader/Techni yahaira ID = [id number] for JESSICA ESCOBEDO POC-EGFR 50 mL/min/1.73M2 (BEAKER) (test code = 1860) Tissue [id number] 13:22:00 Test Item Value Reference Range Interpretation Comments Case Report (test Surgical Pathology code = 104) Report Case: [id number] Authorizing Provider: Colten Ramos MD Collected: 02/08/2020 12:04 PM Ordering Location: [facility] PERIOPER[facility]IVE Received: 02/08/2020 01:50 PM SERVICES Pathologist: Karoline Flores MD Specimens: A) - Kidney, Right B) - Lymph Node, RIGHT PERITONEAL LYMPH NODES DIAGNOSIS (test code t6smuYYsNKRcy6zaKXQzsWYb = 3220) ZzEwMzNcZnRuYmpcdWMxIHtc wqHhXCqvx2EpP9GxZlLcBRxj bnNpXGRlZmxhbmcxMDMzXGZ0 yjMfXEVxOMulEVBiPSvrKj1n aRCdiFjkVyVgGAXfq5mymeKK uzqzlKr0e9awPIRtOiG2hWQk LXmbX9gjzwNwfMInEENwMPt8 vJ81XXCnkM8wtGVuBAqzuxMc IoM7YBcwUODaTuX0VHUzvIHy YBOwT5eeDCXpHOqdQCDfOLlg bTDwOFH1uKuuk6Y3fZJkeDNr pDpyQjUtSrWgZVOCl1LqYKa5 xIxaY2YzYLVsVhT8nZOmHGJr ATquTVKtJVCtkoL6hI17EEpm ljS1yGRsq5Ujh52hk070eV9a wKBeVIQ8GIHzGPPtsFZxRGTx HQK7BPXceZQxP7f1ElAneOPw Y7U2NcWpvPZbK1J3JoGbgOEo D0Z9SbQvfCPbFHNkoJIzTn7x hIWfoAXarl6qlz81SZC1l1Ih zMipIIH7YJW8GvErEq5xdXQf WTBsCO5zBgUsgNHkYUJfis06 sDcrTPbpznItlD2iDfGdZTJh nXHeTENqEW6eeQDdZXDlyC4y cmxjXHBnYnJkcmhlYWRccGdi evNeRn7dkNwoFXI6ARmnN2eq qG9mBnB9RGwuQ7ijgZ7dORd6 OKxasXS4RGBvpC3ySM6phgbp v1pcOfBfQC7gwdezs0xhNvFh VA5bsgw8q5eiAzDrQY7izryh y1icXaTxHAiaHYYmlkiaTHTn x9RmuewfWZGtt0XfQ3WijMkk G80uzJuoG25gYXDcbXtvbX5c cYzacL8bCdLgNhMjZNvopFtw bGFpblxmMVxmczIwXGxhbmcx LKNvTDzlS2vhNsOxWFGzkGsr SXqee1ApEPHlCZHpWaDeXP3e X2oWBwZBDYATFBhTITbtLSCY EEMSQ9PJIIbIRJCNAQxJHCix LoHYSUJIR4QUHWj4TXYiqsLs AZALWPaIPSZ6AFj6LGQREAep GLNhRO7mE4vYXMCgW0JEUGAT YO9QPUDKGFkHTXBZCdNFOu6C JLrpXWDBK4LKDA6KIEIjEQFU PYXFBmOMNtONOUVIIWYKYC6Q HlDMC66eAVqXZs9MB8ZRTJlW QURFIDIvNFxwYXIgICAgLSBO ToYOGVFLAjkHBVQTMFDVG2JV UyBTRUVOXHBhciAgICAtIFZB P3GLNPKMNXnJPhKCBF1KCIAC FWTXTeUohPPxSMOqUW0bP3xI EVUsAjQQPKXEUuGOT9gZCuGG UqDFJA5HOJTwihVeKESlIQ8P RXFRBlPNSYKDN0xZFQ4SWKZJ ULMJF7iOVSRYTFZKBoUHPZCZ EM5gdPJqWSEnTEOEBaETFMZw LW9YKQRBXBZYHUXSFIbKBcDF EHSQHC5VFOAGSGGVQMINWWuM YFROYbKkKL7CME3GJpsGNcoN JJUfdltsVYAjXu5iUodOENTn VdJBRb6JHLUMHG2EDZQKRPuC PTIPJF6UCUVFRLAOCIJDZCAF PX6SQgzhLAFrKE2iPI6GPqVi ZyOSVNpNFBaVDKPRHR7VZHOV ICgwLzkpXHBhciAgLSAgTkVH CQJWUxAlTz9ZWO0PSFwTWcUD K1jyoCCtYALaTWGEHZIDS73H JO8SDVBtwrWoXLCJHYQJRW5M UFRJQyBSRVBPUlRccGFyfXtc yfGfSOqnr7DjLYjvKSKdPO8u nOjkSEKcNC8mGWIjB6odtR8d rux1OrTyYAOyBuD4KOZoecR1 Efb6LRSkOVcdr0tql3XpLXXl RXj4vYgnVeGuZDPww4nlxlYl LlMdGDAqBIGjHRJqpPYcC971 w5abx1tjlkFppCQ8JQDjOQZ9 WRfgsvGqdzS6KLdatQEyOuO4 IDtccmVkMFxncmVlbjBcYmx1 UQWeI506KXF6pQgbr4ukCYQ8 EZVdJWMtXnBvIp2apTLmG084 BUEvNYCWLBEswHd3MEMaifSs xhHmgWOGi943F793i7bcFSKh ywWviGdVqidfd0coP819MZRl cGVydzEyMjQwXHBhcGVyaDE1 ESImEV4worgaGWmwSUwkYFXz xoP1RZTcfBAwB5GtGZXrPM9q dfnjKRL0LZqpFRUwFXP5QxRp OVJwg0Avwxg5UnUmvz8pdt41 NXE6l4VcyIdxUQF5EAH0YpWr Sd8ndGFkGNJtJT4lNoZdsBFo JDZfmc97cEslDUtgTBK5RBZm rnVii9Zmx5ibOsKytaFiL6ls K9TaYLUiQZCiGYDbShOnzxIz e1Jsl2SntPJidYu4i0cbERXo GWFyqIyag6laFMR2IHXdtWGu F9hwrR3yLSBpLW6gggmdl4oa IUuiELhmUVWukHR4cdK8PMTr cMSuW3BosK4pKRAeFKbtKSHu wdy1IkWqXc0bwLUpjZuuPZgt YmtwYWdlXHBnbmNvbnRccGdu ZGVjXHBsYWluXHBsYWluXGYw XGZzMjRccWxcbGFuZzEwMzNc aGljaFxmMVxkYmNoXGYxXGxv A6meMnKsRvSyAbr8MTYkxHQf UCCaBts9KYWtoHOhNNCVjXbh cB7bZSMiuNqxoJ2wyOW4PYQd arDreELFiG6uSTBQuV0hShE5 ZjItUwQ3QGHzNWvqaDZuqL9= SYNOPTIC REPORT (test KIDNEY: Nephrectomy code = [...] Nonneoplastic Kidney: None identified CPT Code(s) (test h8xieBFuPOIfqRRmOoTlBSIr code = 3357) OVDen6gqRJBapBOuOoSsQiQz GfApRsdmtLGrHNRbBuGjl1pb r394xZKoi5sfVYDaOxW6xQGo YTPdeCWoW398r4azi2givcRa pMZ5FMLrJQN3FGexdnKlqkI5 OEeihUSlJxJ0UKumweNiKZzm icMaqfOqWta8WUHrP101VAZ6 dChdu7jiRET1QHEaLGPwOzSd Zd0uyQBeM341ZCCgDLLQDJEu iCj5SRTuouXkovVdoVXLw204 K829i6ngTRXszhNdyEfBqxnw u0xrV464LYSmxEJbwbWxGaXt QWRqrHRmbVL5MYDhDN5wvkac WkYgZY2tfhomJqCdJZ4efsr4 MmUdAG1jbkdiYwSxWWoeYLVu mxlcVBGwz6HzxznbQC6nL1Xo l5W2oR6hmHIcDXYusYVvVcHf LOWgps2zrSJoXKryy6HdDWU1 sgR8hQQfsOJaLHAhAI30Lffi v6ZoFidvOXQ6FATsltTjv1Lf n4zzAoGdymToW9raE9IfXRKw IYGeULVuBrEngaMnd2Tso1Py fFHdqOf5t4hvCFMfEIKsqSus j8ndTMF7QZWvA4Z3mALwv8fu PFapPJSjoTG0dgcnDCozHETm voG8iymxGKhgZMLruLZ5vxze IDnsQYFyYcH2ytvwITpjIEOw UWG0HUeie455XMF6RWpvPqcx YWdlXHBnbmNvbnRccGduZGVj XHBsYWluXHBsYWluXGYwXGZz NpMjdNkvwNjngS1jTiVjYiKe WEhaVA3vGPUnY9jgsEUoJSRi LNAwO5ibGoEjeM6dqZrpLDsx txTjVCl9KaN5TRcdJknmRNV6 CLINICAL HISTORY a7xwnPVkDBOqlLOvSnXqUGNq (test code = 3356) JICwr5pcWZEvjMNpCpWmDoOw OfDuGzrngFWuLLFtLbItq3zu h358aGGfc3utTOMbQtG0uXGj XIEcbTIqE513DSAeCWxim7pe k5KvCNXzfCQdl4G0RZMJheqr kDb8vJlxS49yn4Y4YxdoH0yj NYEwEUSvX9JxRA4zCPAcDwz9 XXE4VFH7UZVrQTNsV6QbLS4i VIJneOGjWUy0g2ilkGysIHQq FYE2h9anTXhjtmIdVQ5shw2l fHp4j4ifixMpCYGfPPRfqANQ JLSlD1DmzEydXy7hoUq1oOhv OtqeCEF2Ptm2LP5tsh34rrr8 yJjcNSJqtklcHhP9TYwuWZAt zyzaZYo5GFgzJYTrtYzlWLej YXJncjcyMFxtYXJndDcyMFxt NWXjQckuIQbaNPGaXUR8JPgo n455PGC8ZItkr8ubz2qewQNo Kcq3RIEqVgAmCvqnAYeed6Jn k7deILPqbg7dESZ3iKCvdDbb w8L3ePQbABFdhJBnxhNhOVOs LeM9IUcmNS9llo57PRYeIQV4 bs0xdHRvtKdqftXbsXIyDDyy Y5UyJDSbo310GSSnO1WeDKNk h1C9sjOdQrAjLGRzkUS1buE2 CKPyXFh2bWTyqmP5anByhOGg B4uvgR32QuVwhZEbM2QbdD42 ZqVxxRSaR2UmjA73IkHzaFEy Z1OvpJ67IfOxqIJmQODmpFBo Zp8kxDEmzNIpa7AjkUZhMKbf Z14nh833LHTfdxRfP8mrbIFp iycgiUUyoxyiIDjlrzA0VBh1 cnBhclxxbFxwbGFpblxmMVxm omPlDKopjmynZEBmTLoxQ7zz BtLoAJWdwBfhBCikj3DtCRVg XGZzMjAgUmVuYWwgbWFzcyBc cGFyfQ== SPECIMEN SOURCE (test l0oboRXkFGKrgWQsDmBjWVKm code = 3377) QQYgn8vcBSJnwZQhZxXpHyKe YaJqFzpoqDMmVDDeCgJle2jx q254uEGfw7wmWPNtNoQ2vBNb MDRmgKDcO820c8ovr2gshfZd rGZ4TRLiFEY0MQevyrRtrlN1 TInchHGqTzI4JErkmfBmMDdc weExdcBdZue8RCUsZ429PZO1 vFfrr9mvJTP2EPPiAJPfAdQv Ec9suCJeU268OTGmKSUCWOKz aNv7ITIkynGfukEeeMJKr605 L031s7iiNRKdtgRodFuTwsmb e4vcP012JXNqzBGcvzGpCtJt MBXwmDJzeDN3RBDmVI9amclx QhFdGJ8maweuPzLdUY4hyvc4 LcGeZB0nkuuuHhJhAScmHOUs xhfaWGQwv9XzrvbmDU1uC2Rz v3N9gH1gvTUnWAQkvTVpPxOd WFKspo7gdWJaAWuwk3DhFDH7 qnW7iVWhvQWiKHAgXJ39Lgdb d9YaPmwqZHE1IYKzleVrl2Fg t8fvQeStnbWbZ9dmT3ZgPIFv RIDeZLOeGvLkvcTtl7Our6De lKPwnIh1t2fbNWUnFIMnfJlw j9szBBC5HGXpC4I0cDNqe7ft TPtrADJhtXB2qqedPAduKONt vtQ4jotmMTkpBCBsdJE2nyts RIxeJPYzNqI9tlfrANixYFEo JBF0CGeew959UEY5IIptVsrc YWdlXHBnbmNvbnRccGduZGVj XHBsYWluXHBsYWluXGYwXGZz NmNdcXrejVkohT7nRvIbTqAy IAiqSE5oOYUgV5idlQVgRHXi TRQyF6erKlWquR9hgJmjNQtc czIwIEEuICBLaWRuZXksIHJp E6p9NKMxjcCZHsQzBsnbtOXg rDMvtAWiwwRxjGStsQ9uaBBb t2Uat9klGVU4 GROSS DESCRIPTION b5ilpEOuPLXdqTFbUkUqIDEw (test code = 3366) NREro8ojPDQyvPSjPmVyYdRh WjCtYkiowBJlZTMoPpNtk1oh g183eZQli1pfZOFnJyQ8mBIj INLvaHTiC183ZRRmEUuul0fj q3HtULHxvNNgk4C8KHRPhtys vAv1dXdmN20ah0S8EwueU8we VNAgGZJpK7BpSM0sTPWfAyc9 DYB3QPK2QZRkAHUuT3PyTB8j KLIqhHOgWHw3c3fhsIzbSQUb NDA1r8ylTVpuhlCkDF2jfr7t iDg6i2hsvyQuGUHqPFHhlNKJ MLSfW4SedYmuEx1ybJn0uMsw KzpwCWG2Lfb9CL2jgi89fbd7 sTykGHZknqfkJdX4YXrsKZWp domuQDq6OCcxADSetJnxBXyg YXJncjcyMFxtYXJndDcyMFxt KHHfXmuuUHafDNMhCOM1GDxc r337HPH5NMyki6orp7hixHQz Tbf2DONzEfXkZdbiFCepe4Wi a9glEWNnhp5oUGG8sASujPms d2X6rMQzBLJykVGdipCwRJWr RyN8PSmvPI0jsq43YHKuEYE4 fm0mtPMhsMidmmEjlUJoOFol I7HsPNOlk487MVHaI2MlAEAs n0I6deSwZiPkLQLiiFE7plQ6 VBSgOBl1gVFxlaN7cyWgwSLd H4llsC19GdNvaHFxY3JmuZ31 XtVctVYwD6TeaZ69EsAgeEPq V2GklD62SqFdyFQkGXQveVSr Kt5rnRJefBYdh4OxwBZrZBxy F74lh818RYYxnzDlB1lisXZo ppwunTZevexxEUbdyxZ8WSPp XHBsYWluXGYxXGZzMjBcbGFu ZzEwMzNcaGljaFxmMVxkYmNo SMBhQJxfP4bzPeAmCyXjNRSQ LiBSZWNlaXZlZCBmcmVzaCBs QYUujButIAZ2nNWwAVNiKZQm RPZlQV70UFfyWAVcttHuSHst bWVkaWNhbCByZWNvcmQgbnVt DdHlRAJwHDAgk7qflvQ8GNYd iCenrLYreFVgSLU5GzVgAbtr ViTlxGHeWF92SPjrWx34ZJDc COLjFAcuBLjfmlXucZMwE1Yh bXkuICBUaGUgdXJldGVyIGlz KUyhVBVmrGJzbwMhIO7wqZfw JC4dJSFoHpDwkCJhadQgzUOk TUOhxtjvAM4pMVGsKVFniZMm CMiasWOuJQHoLTD3WLCoZmI9 LKCkItAmiE0sLBFaGIVqQWQi drBgJFylVH1iEJdfWOSas5Tf jQ1mAEUbGRNkJUsxWBEaTCAj hQ7mIW13RRHjy1BuwEHaXyDx bLWfZ6tyZEMbQXNzzdIscLDi YyBmYXQuXHBhclxwYXIgVGhl VKohOT4ldDMnIOAqmNjlZHkc BLXfjzvlGX7aFMDyp623fD2c JDkuml53WGahJPKaz9GeTIOy pmAddlEjA3ZmEDQSuLVqk7Nm K1scCY8ocPZwu9OxloDpKXEc CWWjbzEkqQGzUJfopVfiB3na X0Vkd1HilEUlPChrI67wOKDt IHllbGxvdywgcmVkLXRhbiwg h14ggCJyAU5dRHU3v6IdFbZv YLBfOQmtGNLiPQGhlFMgi9jx TC1lWRJnRHTyt2Q2CIVdq0Km OAIzSEE9VG1dEHA3huhpBuO4 PiQhvSBmYyCkaEUtUhZyT98r ICBUaGUgbWFzcyBpcyAzLjUg P16xIrSwzJB6nMCyjhPiEBxu ilVtymMvPXBmvZ6rIIOkqYXu YLMwYUSxOE0jjVBtlM60kcHn btTov6ailxS3LOEhaNW2vYBk YOSdWJTic0ZiUU9hzZUpvyHc jKQnCFTrROAsFZ3kaWZ2BVkd NrIsHYnsBU3km1JsRYKrEHVt pzGic0XjqZy3YI9oW8NfxNxf PBOzHMSjMH5xvmMcLOnnMh5y IXJtOQWhXW2jtU1bzppbnbZp YPibiWZoOP5ltNyvIYFjeeCu aH6iRNFqUSNodzEyk14bh8Bq NzQoUUnvPNJwhrUcX0BfVX2u QBPsaKMphGKxrZ6edOosnhRi ouR8BHrzYYKjcYSsD5O1LAUl RQ4hEZ0rZIQ6kyMcAWXoUETg bB1nDEd8wTGxTR3yJCRwRCBg DXJwv4KqmEBqnwGtLemxIB6g WZXpfJLmv4AslAK3xPIzQRZa D4Nwf05bRKOvVFBniAWptLF6 YUZtTYGbxpenXMYnAW1oUONx ZVZ9VGWppaOLhoXlvyjyVtTo MPpebkHxufqdXEOkMnn2IZwo F6H6SIIyb6CxOnAqGDNrEwHe pGSszE5swnlzKLHfmEJgRLKf K9Afc62pI09bMDeebAYtEYDq JkIDstL1RPOqRI8jGKOyo1Y5 cAQyZY1qpkwftaMoSSEkXANm L4WdfIFpJBQmGSUkTrAOCLVk HIIkMZEalG7sMY7jELXiicOr OIGrdyUaTWObhyPWPW2DIfuq GUAgcbT0vfBsEU1vjFCyaA88 p2ohPPCnUXt8TO3wq7QwfZ8e f1ehgjS2ABNvmAE2kSJjXT9m WFtmmn69WGzmSZOlf7DsATfa HENqOZS4SrAXTCTtWMvnxMts wRMyh6JooNKdVDG9wzZ7aglw qa4vgxAnLAEeevKtINFyuiPk P0f7aBGrmAFcTUWzWJS3MT5z z1Hza6z3sLYzMB1oovSsVJnq IHRvIHJlbmFsIHNpbnVzXHBh jzJKJNQbNdMVuenrbb6dhrYr VBfdWZ8bbZkiHEZrlLVlOIVp UCByB3RhaoHqVUUwPAKtHMfx YmVsbGVkIHdpdGggdGhlIHBh nXkzpyZxU7K3iaRyNZ0dHTBy GQZyB5LvIVSwA17eCDOvmV1p TEVhLZ4iNWFcpSklqMZoNWEk zK7nOEXoGJp4yXCzPO1iTLYv RwXiqxKxLODnOWA1IHXkvILp OaKiI58nzCYxMPy7mJAeIYRd ljYud87vm4CfLSXwhQ1oCZQ6 xUHqiDQxQIHRiSPutK8ygoAs jyIaJAHzCInxvHPwTOT0cA6i DVQsaY1yuvL3AMGiXK98xCJx ySphETVxdr0hoM5uBZz4hBDx RY3gJVLdSEMqemwktqrnIT9n KUMdFSDzkF3vRUZeHNXmiYRh eK0zewRhvhYloxGxtaVftCIu sUAwaBA4DGOiXMUbtmxqRTHd G4OppVhzblVhh9EuOqsxJXQc LcHjLoB0XXPulB3ev2dkvKRn aTnqyOquqt1xEZAtmCXkU0Fv UTMfmiPuBLOlNUWvj9AhvIJz WXTbhhCNIS9QBeYuPBe7dATv NH7mCKJwQYXne6RlbLByVNFc ymXXIjusJqLguqBgW8ZoqTrv aQlaqs5oYPFiwFBmBGR7HnEQ HD1nfZ4nGQXum6Baz8VjT6uu NF0skXTgDOEmkoDQvYFit3Rv IEdyYXVuLCBNSFMsIFBBIChB Z5TSYDrvNRVsxNOzVONcrm5= MICROSCOPIC c7qxtMPmUJBquEHaTsHbCINh DESCRIPTION (test ITYgq2afLCDkdTDyFcCtRtGc code = 3371) YhMtLukwwTAmNBVwRpCdt0sn p528tOVab8nuMHNcNeK7eIAo QIJhpANlN527h3mie8abftOu wFN8MSItOJB3HWxhddGhfyF1 GLqamJWxVdP6TJizajVlAUxj hhFnfwUcRpj7IWMnD435RSR7 lKmoi9zmHPR1KDOgUCNtMvJh Hd7kwIMgL354ORFtHWIUCTTw yAb2RIBumfBrgvCegZLNj447 K375e2uzZBUhnzVrwHtAqhhq o5utQ929CMBavWSilpUaEhZi IQXqtURoiJW5WGFpXV9rsebn YbZuVQ0chjykBaTrHF0oqcj2 IeRkJY0nkvakTzOjCSlwXZKu evlfXBLfm5OwjcypEE0tP3Us r5V2rH2hfAGbHYEybCPeAvVw MRKzvj8cpLTmBBpyj0VtRGN7 imM1wITkpRGcKOKpTS99Llue y7AvLorbZFE7XDKhqjYvi5Fe x1diFwPktuWaR7avR6BiIMIz XELzVYAzWwJirzWzq2Ekv7Dd mGEdrPk5u3wbNVOoPZJvnUhw p2xiIZI7KUFsK9A1xJMsd7ew ZCfeWLVpjGZ4ceaeDDarCVLs vlV3zwltAEacIKIbnUE8mlzq TCkyNCZrRfK5vwihSYtzSNOw HBU7ZFjhl163CBX3FFqnAyos YWdlXHBnbmNvbnRccGduZGVj XHBsYWluXHBsYWluXGYwXGZz HoTdaXpkyUpalO5eEeHoMeZd ZXrjGW9fLSLnK4vbtQOlSBWv AJVgJ8fqOkDntL3dvUwwXAds [id number] [id number] 13:22:00Surgical Pathology Report Case: [id number] Authorizing Provider: Colten Ramos MD Collected: 02/08/2020 12:04 PM Ordering Location: [facility] Received: 02/08/2020 01:50 PM SERVICES Pathologist: Karoline Flores MD Specimens: A) -Kidney, Right B) - Lymph Node, RIGHT PERITONEAL LYMPH NODES A. KIDNEY, RIGHT, LAPARO SCOPIC RADICAL NEPHRECTOMY: - WEIGHT: 774 GM - CLEAR CELL RENAL CELL CARCINOMA, MEASURING 4.5 CM IN GREATEST DIMENSION, WHO/ISUP GRADE 2/4 - NO DEFINITE NECROSIS SEEN - VASCULAR INVASION PRESENT - SINUS FAT INVASION PRESENT - NO SARCOMATOID OR RHABDOID FEATURES SEEN - URETER AND THE VASCULARMARGINS AT THE HILUM ARE UNREMARKABLEB. RIGHT RETROPERITONEAL LYMPH NODES, DISSECTION: - NINE BENIGN LYMPH NODES (0/9) - NEGATIVE FOR MALIGNANCY - SEE COMMENT- SEE SYNOPTIC REPORT Signing Pathologist Direct Phone Line: [phone] signed by Karoline Flores MD on 02/14/2020 [...] Pathologic Findings in Nonneoplastic Kidney: None identified [id number] X 2Renal mass A. Kidney, rightB. Right [...] 0.9 cm. Lymph nodes are not identified. Certified Midwife sections are submitted.Ink code:Green: Renal veinBlue: Outer [...] code:B1-B4: 1possible lymph node bisected in each cassetteB5-B6 1 lymph node, bisectedB7: 2 intact lymph nodesB8:Remainder of specimenChelsea ADITHYA Buckner, JEREMY (ASCP)PERFORMEDBasic metabolic [id number] 04:41:00 Test Item Value Reference Range Interpretation Comments Sodium (test code = 140 meq/L 941-057 7277-2) Potassium (test code = 3.9 meq/L 3.5-5.1 2823-3) Chloride (test code = 112 meq/L 98-107 H 2075-0) CO2 (test code = 23 meq/L 22-29 2028-9) BUN (test code = 12 mg/dL 7-21 3094-0) Creatinine (test code 1.09 mg/dL 0.57-1.25 = 2160-0) Glucose (test code = 107 mg/dL 70-105 H 2345-7) Calcium (test code = 7.9 mg/dL 8.4-10.2 L 09386-8) EGFR (test code = 51 mL/min/1.73 sq [place] [address]-7) NOT ACCURATE CREATININE CLEARANCE IN PREDICTING GLOMERULAR FILTRATION RATE . ESTIMATED GFR I S NOT APPLICABLE FOR DIALYSIS PATIENTS. ALEX (test code = ALEX) Warehouse Team Leader ID - YOJANA B Lab Interpretation Abnormal (test code = 12387-3) [facility] [id number] 04:41:00 Test Item Value Reference Range Interpretation [...] 8.4-10.2 L (test code = 697) EGFR (BEAKER) (test 51 mL/min/1.73 ESTIMA JOSÉ MIGUEL GFR IS code = 1092) sq m NOT ACCURATE CREATININE CLEARANCE IN PREDICTING GLOMERULAR FILTRATION RATE . ESTIMATED GFR I S NOT APPLICABLE FOR DIALYSIS PATIEN TS. Warehouse Team Leader ID - YOJANA BCBC with platelet count + automated [id number] 04:38:00 Test Item Value Reference Range Interpretation [...] 450 K/CU MM MPV (test code = 41547-5) 9.1 fL 9.4-12.3 L nRBC (test code [...] 2801) Lab Interpretation (test code = Abnormal 82002-7) [facility] W/PLT COUNT & AUTO [id number] 04:38:00 Test Item Value Reference Range Interpretation [...] (BEAKER) (test code = 2801) BASIC METABOLIC [id number] 19:11:00 Test Item Value Reference Range Interpretation [...] S NOT APPLICABLE FOR DIALYSIS PATIEN TS. Warehouse Team Leader ID - BSCBC W/PLT COUNT & AUTO [id number] 13:46:00 Test Item Value Reference Range Interpretation [...] PERCENT (BEAKER) (test code = 2801) ABORH, [id number] 06:53:00 Test Item Value Reference Range Interpretation Comments ABO Grouping (test code = 2588) O Rh Factor (test code = 2589) POS [facility], [id number] 06:52:00 Test Item Value Reference Range Interpretation Comments ABO/RH AUTOMATED (BEAKER) (test O POSITIVE code = 2260) Ab Scrn (test code = 890-4) [facility])2020-02-06 09:30:00 Test Item Value Reference Range Interpretation Comments SARS-COV2/RT-PCR (test code = Negative Not Detected, Negative 83893-7) SARS-COV-2 PERFORMING LAB CPL (test code = 54539-2) [facility]F [facility])2020-02-06 09:30:00 Test Item Value Reference Range Interpretation Comments SARS-COV2/RT-PCR (test code = Negative Not Detected, Negative 0709486) SARS-COV-2 PERFORMING LAB CPL (test code = 9316533) RAD, CHEST, 2 [id number] 11:51:00Reason for Exam:->Renal mass, right FINAL REPORT [...] MDReport Verified Date/Time: 02/04/2020 11:51:56 Reading Location: [address] Radiology Reading Room XR Chest 2 [...] MDReport Verified Date/Time: 02/04/2020 11:51:56 Reading Location: [address] Radiology [facility], [id number] 15:21:00Reason for exam:->eval right hydro, s/p R [...] renal ultrasound without hydronephrosis. Signed: Saira Cantrell MDReport Verified Date/Time: 01/29/2020 15:21:36 Reading Location: [facility] B1 C013X Ortho Consult Reading Room US renal [id number] 15:21:00Interface, External Ris In - 01/29/2020 3:23 [...] bilaterally. Impression: Unremarkable renal ultrasound withouthydronephrosis. Signed: Saira Cantrell MDReport Verified Date/Time: 01/29/2020 15:21:36 Reading Location: [facility] C013X Ortho Consult Reading [facility] 2020-01-29 07:14:00 Test Item Value Reference Range Interpretation Comments Color, UA (test code = Brown 5778-6) Clarity, UA (test code = Hazy 5767-9) Specific [place], UA 1.023 1.001-1.035 (test code = 5811-5) pH, UA (test code = 6.0 5.0-8.0 5803-2) Protein, UA (test code = 100 mg/dL Negative A 38451-3) Glucose, UA (test code = Negative Negative 365) Ketones, UA (test code = 80 mg/dL Negative A 2514-8) Bilirubin, UA (test code Negative Negative = 54385-5) Blood, UA (test code = Large Negative A 23540-2) Nitrite, UA (test code = Negative Negative 5802-4) Leukocytes, UA (test code Moderate Negative A = 5799-2) Urobilinogen, UA (test 0.2 mg/dL 0.2-1 code = 05006-9) RBC, UA (test code = 2181 /HPF 56824-0) WBC, UA (test code = 30 /HPF 5821-4) Mucus (test code = Occasional 8247-9) Squam Epithel, UA (test 2 /HPF code = 73935-4) Specimen Source (test code = 2795) ALEX (test code = ALEX) Warehouse Team Leader ID - [auto]Warehouse Team Leader ID - tech Lab Interpretation (test Abnormal code = 75391-3) [facility]/ [id number] 07:14:00 Test Item Value Reference Range Interpretation [...] = 516) SOURCE(BEAKER) (test code = 2795) Warehouse Team Leader ID - [auto]Warehouse Team Leader ID - techBASIC METABOLIC [id number] 02:41:00 Test Item Value Reference Range Interpretation [...] S NOT APPLICABLE FOR DIALYSIS PATIEN TS. Warehouse Team Leader ID - DBCBC W/PLT COUNT & AUTO [id number] 02:16:00 Test Item Value Reference Range Interpretation [...] 2801) FL, FLUORO, NON-SPECIFIC, UP TO 1 [id number] 15:09:00Reason for exam:- >CYSTOSCOPY, RIGHT URETEROSCOPY, RIGHT URETERAL STENTFINAL REPORT Technique: Fluoroscopic images dated 01/28/2020 History: Right stent placement COMPARISON: None IMPRESSION:Total fluoroscopy time is 0.9 minutes. Total number of images is 13. Images reveal placement of a right double-J ureteral stent. Please see operative report fordetails. Signed: Cm [place] Verified Date/Time: 01/28/2020 15:09:04 Reading Location: [address] Radiology Reading Room [place] fluoro non-specific up to 1 [id number] 15:09:00 Interface, External Ris In - 01/28/2020 3:11 PM CDTFINAL REPORT Technique: Fluoroscopic images dated 01/28/2020 History: Right stent placement COMPARISON: None IMPRESSION:Total fluoroscopy time is 0.9 minutes. Total number of images is 13. Images reveal placement of a right double-J ureteral stent. Please see operative report for details. Signed: Cm [place] Verified Date/Time: 01/28/2020 15:09:04 Reading Location: [address] Radiology Reading Room [facility]
[2020-06-21 14:59] LABS: Absolute Lymphocytes (CBC) 0.9 K/uL (0.7-4.9); Basophils % 0.7 % (0-1.3); Hematocrit 39.9 % (36.0-45.0); Lymphocytes % 21.4 % (15.3-44.8); MPV 7.8 fL (7.6-11.3); RBC Red Blood Cell Count 4.26 M/uL (3.86-4.86)
[2020-06-21] MEDS ORDERED: ONDANSETRON 4 MG/2 ML VIAL ONE (15:00)
[2020-06-21] MEDS ORDERED: NA CHLORIDE 0.9% 500 ML ONE (15:00)
[2020-06-21 15:18] LABS: Albumin 2.3 g/dL (3.4-5.0); Bilirubin Direct 0.5 mg/dL (0-0.2); Bilirubin Total 1.6 mg/dL (0.2-1.0); Magnesium 2.3 mg/dL (1.8-2.4); Potassium 3.7 mmol/L (3.5-5.1); Protein, Total 5.1 g/dL (6.4-8.2)
[2020-06-21 15:44] LABS: Blood Morphology Comment NOT SEEN (NOT SEEN); Platelet Estimate DECR; White Blood Cell Scan OK (OK)
--- NOTE | 2020-06-21 16:10 | EDPHYS ---
Physician Documentation [facility] Name: Jade Pride Age: 65 yrs Sex: Female : 1955 Arrival Date: 06/21/2020 Time: 13:12 Bed 4 Private MD: Kalpesh Benjamin E ED Physician Soy Coyne HPI: 06/21 14:20 This 65 yrs old Female presents to ER via Ambulatory with complaints of cp Nausea/Vomiting. 14:20 The patient presents to the emergency department with nausea, with "dry heaves", cp vomiting, that is intermittent. Onset: The symptoms/episode began/occurred 4 day(s) ago. Possible causes: Patient reports history of renal cancer and history of taking oral chemo for two weeks up until Friday. Patient denies fever, vomiting of blood, denies diarrhea. 14:20 Associated signs and symptoms: Pertinent negatives: abdominal pain, constipation, cp diarrhea, fever, GI bleeding, active vomiting. Historical: - Allergies: 13:39 Tetracycline (Blisters in Mouth); jd3 - PMHx: 13:39 Back pain; Dementia; carsenoma; jd3 - PSHx: 13:39 Tubal ligation; right kidney; jd3 - Immunization history:: Adult Immunizations up to date. - Social history:: Smoking status: unknown. ROS: 14:30 Constitutional: Positive for poor PO intake, Negative for body aches, chills, fever. cp 14:30 Eyes: Negative for injury, pain, redness, and discharge. cp 14:30 ENT: Negative for ear pain, sore throat, difficulty swallowing, difficulty handling secretions. 14:30 Cardiovascular: Negative for chest pain, palpitations. 14:30 Respiratory: Negative for cough, shortness of breath, wheezing. 14:30 Abdomen/GI: Positive for nausea and vomiting, Negative for abdominal pain, diarrhea, constipation, black/tarry stool, rectal bleeding. 14:30 Back: Negative for pain at rest, pain with movement. 14:30 : Negative for burning with urination. 14:30 Neuro: Negative for altered mental status, dizziness, headache, syncope, weakness. 14:30 All other systems are negative. Exam: 14:35 Constitutional: The patient appears in no acute distress, alert, awake, cp non-diaphoretic, non-toxic, well developed, well nourished. 14:35 Head/Face: Normocephalic, atraumatic. cp 14:35 Eyes: Periorbital structures: appear normal, Conjunctiva: normal, no exudate, no injection, Sclera: no appreciated abnormality, Lids and lashes: appear normal, bilaterally. 14:35 ENT: External ear(s): are unremarkable, Nose: is normal, Mouth: Lips: dry, Oral mucosa: moist, Posterior pharynx: Airway: no evidence of obstruction, patent. 14:35 Neck: ROM/movement: is normal, is supple, without pain, no range of motions limitations. 14:35 Chest/axilla: Inspection: normal, Palpation: is normal, no crepitus, no tenderness. 14:35 Cardiovascular: Rate: normal, Rhythm: regular, Edema: is not appreciated, JVD: is not appreciated. 14:35 Respiratory: the patient does not display signs of respiratory distress, Respirations: normal, no use of accessory muscles, no retractions, labored breathing, is not present, Breath sounds: are clear throughout, no decreased breath sounds, no stridor, no wheezing. 14:35 Abdomen/GI: Inspection: abdomen appears normal, Bowel sounds: active, all quadrants, Palpation: abdomen is soft and non-tender, in all quadrants, rebound tenderness, is not appreciated, voluntary guarding, is not appreciated, involuntary guarding, is not appreciated. 14:35 Back: pain, is absent, ROM is normal. 14:35 Skin: cellulitis, is not appreciated. 14:35 Neuro: Orientation: to person, place \\T\\ time. Mentation: is normal, Motor: moves all fours, strength is normal. Vital Signs: 13:39 BP 152 / 88; Pulse 90; Resp 17 S; Temp 98.8(TE); Pulse Ox 98% on R/A; Weight 97.52 kg jd3 (R); Height 5 ft. 5 in. (165.10 cm) (R); Pain 5/10; 15:15 BP 141 / 75; Pulse 75; Resp 16; Pulse Ox 96% on R/A; tw2 16:38 BP 148 / 84; Pulse 83; Resp 17; Pulse Ox 99% on R/A; tw2 16:40 Temp 98.0(TE); aa5 13:39 Body Mass Index 35.78 (97.52 kg, 165.10 cm) jd3 MDM: 14:11 Patient medically screened. 15:00 Differential diagnosis: gastritis, cholecystitis, pancreatitis, appendicitis, cp diverticulitis, viral gastroenteritis, gastroenteritis. 15:55 Data reviewed: vital signs, nurses notes, lab test result(s), radiologic studies, cp ultrasound. Response to treatment: the patient's symptoms have mildly improved after treatment, and as a result, I will admit patient. 16:00 Physician consultation: Timbo Daly was called at 16:00, was contacted at 16:00, cp regarding admission, to the medical/surgical unit. patient's condition. 06/21 14:18 Order name: Basic Metabolic Panel; Complete Time: 15:42 06/21 15:42 Interpretation: Normal except: GLUC 112; BUN 36; CRE 2.43; GFR 20. 06/21 14:18 Order name: CBC with Diff; Complete Time: 15:44 06/21 15:44 Interpretation: Normal except: PLT 70; RDW 18.8; Reviewed. 06/21 14:18 Order name: Hepatic Function; Complete Time: 15:42 cp 06/21 14:18 Order name: Lipase; Complete Time: 15:42 06/21 14:18 Order name: Magnesium; Complete Time: 15:42 06/21 14:18 Order name: Urine Microscopic Only 06/21 14:18 Order name: IV Saline Lock; Complete Time: 14:56 cp 06/21 14:18 Order name: Labs collected and sent; Complete Time: 14:56 06/21 15:44 Order name: CBC Smear Scan; Complete Time: 16:08 EDMS 06/21 15:47 Order name: US Abdomen Limited: RUQ; Complete Time: 16:37 cp 06/21 16:37 Interpretation: Report reviewed. 06/21 16:17 Order name: Urine Dipstick--Ancillary (enter results) 06/21 17:04 Order name: Diet Regular; Complete Time: 17:04 aa5 06/21 14:18 Order name: Urine Dipstick-Ancillary (obtain specimen); Complete Time: 16:18 cp Administered Medications: 14:50 Drug: Zofran (Ondansetron) 4 mg Route: IVP; Site: left antecubital; aa5 15:00 Follow up: Response: No adverse reaction aa5 14:50 Drug: NS 0.9% 500 ml Route: IV; Rate: bolus; Site: left antecubital; aa5 15:30 Follow up: IV Status: Completed infusion; IV Intake: 500ml aa5 Disposition: 18:04 Co-signature as Attending Physician, Soy Coyne MD. rn Disposition: 06/21/20 16:10 Hospitalization ordered by Timbo Daly for Observation. Preliminary diagnosis are Nausea and vomiting, Dehydration, Acute kidney failure. - Bed requested for Telemetry/MedSurg (observation). - Status is Observation. tw2 - Condition is Stable. - Problem is new. - Symptoms have improved. Signatures: Dispatcher [employer] EDMS Arabella Bull Roman, MD MD rn Calderon, Mya RN RN aa5 Sinan Nash PA PA cp Wise, Tara RN RN tw2 Sunday Sadler RN RICKY jd3 Corrections: (The following items were deleted from the chart) 17:06 16:10 Hospitalization Ordered by Timbo Daly for Observation. Preliminary diagnosis bd is Nausea and vomiting; Dehydration; Acute kidney failure. Bed requested for Telemetry/MedSurg (observation). Status is Observation. Condition is Stable. Problem is new. Symptoms have improved. cp 17:17 17:06 06/21/2020 16:10 Hospitalization Ordered by Timbo Daly for Observation. aa5 Preliminary diagnosis is Nausea and vomiting; Dehydration; Acute kidney failure. Bed requested for Telemetry/MedSurg (observation). Status is Observation. Condition is Stable. Problem is new. Symptoms have improved. bd 17:45 17:17 06/21/2020 16:10 Hospitalization Ordered by Timbo Daly for Observation. tw2 Preliminary diagnosis is Nausea and vomiting; Dehydration; Acute kidney failure. Bed requested for Telemetry/MedSurg (observation). Status is Observation. Condition is Stable. Problem is new. Symptoms have improved. aa5
--- NOTE | 2020-06-21 16:10 | ER ---
Nurse's Notes [facility] Name: Jade Pride Age: 65 yrs Sex: Female : 1955 Arrival Date: 06/21/2020 Time: 13:12 Bed 4 Private MD: Kalpesh Benjamin E Diagnosis: Nausea and vomiting;Dehydration;Acute kidney failure Presentation: 06/21 13:35 Chief complaint: Spouse and/or significant other states: "She has been taking a chemo jd3 therapy drug and has been throwing up since about last Friday. she has also developed a rash on her feet and under her breast and now she is passably having a urine infection.". Coronavirus screen: At this time, the client does not indicate any symptoms associated with coronavirus-19. Ebola Screen: Patient negative for fever greater than or equal to 101.5 degrees Fahrenheit, and additional compatible Ebola Virus Disease symptoms. Initial Sepsis Screen: Does the patient meet any 2 criteria? No. Patient's initial sepsis screen is negative. Does the patient have a suspected source of infection? No. Patient's initial sepsis screen is negative. Risk Assessment: Do you want to hurt yourself or someone else? Patient reports no desire to harm self or others. Onset of symptoms was June 17, 2020. 13:35 Method Of Arrival: Ambulatory jd3 13:35 Acuity: DANIEL 3 jd3 Historical: - Allergies: 13:39 Tetracycline (Blisters in Mouth); jd3 - PMHx: 13:39 Back pain; Dementia; carsenoma; jd3 - PSHx: 13:39 Tubal ligation; right kidney; jd3 - Immunization history:: Adult Immunizations up to date. - Social history:: Smoking status: unknown. Screenin:32 Abuse screen: Denies threats or abuse. Nutritional screening: No deficits noted. tw2 Tuberculosis screening: No symptoms or risk factors identified. Fall Risk None identified. Assessment: 14:30 General: Appears comfortable, Behavior is calm, cooperative. Pain: Denies pain. Neuro: aa5 Level of Consciousness is awake, alert, obeys commands, Oriented to person, place, time, situation. Cardiovascular: Heart tones S1 S2 present Rhythm is regular. Respiratory: Airway is patent Respiratory effort is even, unlabored, Respiratory pattern is regular, symmetrical. GI: Abdomen is round Bowel sounds present X 4 quads. Abd is soft and non tender X 4 quads. Reports nausea, Pt reports no vomiting today but reports she only ate a small meal today. : No signs and/or symptoms were reported regarding the genitourinary system. EENT: No signs and/or symptoms were reported regarding the EENT system. Derm: Skin is pink, warm \\T\\ dry. Musculoskeletal: Range of motion: intact in all extremities. 15:30 Reassessment: Patient is alert, oriented x 3, equal unlabored respirations, skin aa5 warm/dry/pink. Patient states feeling better. Pt reports nausea has improved, currently denies nausea. . 16:10 Reassessment: Patient is alert, oriented x 3, equal unlabored respirations, skin aa5 warm/dry/pink. US at bedside . 16:40 Reassessment: hospitalist Dr. Daly at bedside at this time. tw2 17:00 Reassessment: Patient is alert, oriented x 3, equal unlabored respirations, skin aa5 warm/dry/pink. Pt sitting up in bed, denies nausea. Awaiting room assignment. . 17:30 Reassessment: Patient is alert, oriented x 3, equal unlabored respirations, skin aa5 warm/dry/pink. Vital Signs: 13:39 BP 152 / 88; Pulse 90; Resp 17 S; Temp 98.8(TE); Pulse Ox 98% on R/A; Weight 97.52 kg jd3 (R); Height 5 ft. 5 in. (165.10 cm) (R); Pain 5/10; 15:15 BP 141 / 75; Pulse 75; Resp 16; Pulse Ox 96% on R/A; tw2 16:38 BP 148 / 84; Pulse 83; Resp 17; Pulse Ox 99% on R/A; tw2 16:40 Temp 98.0(TE); aa5 13:39 Body Mass Index 35.78 (97.52 kg, 165.10 cm) jd3 ED Course: 13:12 Patient arrived in ED. ag5 13:12 Kalpesh Benjamin MD is Private Physician. ag5 13:37 Triage completed. jd3 13:41 Arm band placed on. jd3 13:56 Sinan Nash PA is PHCP. cp 13:56 Soy Coyne MD is Attending Physician. cp 14:09 Mya Cruz, RN is Primary Nurse. aa5 14:41 Initial lab(s) drawn, by me, sent to lab. Inserted saline lock: 20 gauge in left aa5 antecubital area, using aseptic technique. Blood collected. 15:31 Patient has correct armband on for positive identification. Placed in gown. Bed in low mh5 position. Call light in reach. Warm blanket given. shelter monitor on. Pulse ox on. NIBP on. 16:09 Timbo Daly is Hospitalizing Provider. cp 16:10 Urine collected: Urine Micro sent to lab. aa5 16:21 US Abdomen Limited: RUQ In Process Unspecified. EDMS 17:30 No provider procedures requiring assistance completed. Patient admitted, IV remains in aa5 place. Administered Medications: 14:50 Drug: Zofran (Ondansetron) 4 mg Route: IVP; Site: left antecubital; aa5 15:00 Follow up: Response: No adverse reaction aa5 14:50 Drug: NS 0.9% 500 ml Route: IV; Rate: bolus; Site: left antecubital; aa5 15:30 Follow up: IV Status: Completed infusion; IV Intake: 500ml aa5 Intake: 15:30 IV: 500ml; Total: 500ml. aa5 Outcome: 16:10 Decision to Hospitalize by Provider. cp 17:25 Admitted to Med/surg accompanied by tech, family with patient, via wheelchair, room aa5 209, with chart, Report called to RICKY Damon 17:25 Condition: stable 17:25 Instructed on the need for admit, Demonstrated understanding of instructions. 17:45 Patient left the ED. tw2 Signatures: Dispatcher [employer] EDID Mya Cruz, RN RN aa5 Sinan Nash PA PA cp Sis Wakefield RN RN tw2 Beba Fernandez [facility] Sunday Sadler RN RN jd3 Ashley Phelps 5
--- NOTE | 2020-06-21 16:29 | RAD REPORT ---
EXAM DESCRIPTION: US - Abdomen Exam Limited - 06/21/2020 4:21 pm CLINICAL HISTORY: nausea/vomiting COMPARISON: No comparisons FINDINGS: The gallbladder demonstrates no gallstones. No pericholecystic fluid or gallbladder wall t hickening. The common bile duct is normal measuring 2 mm. The liver demonstrates no findings of intrahepatic biliary dilatation. IMPRESSION: Unremarkable examination.
[2020-06-21 16:37] LABS: Urine Culture Reflex Order NOT NEEDED
[2020-06-21 16:38] LABS: Urine Bacteria <20 /HPF (<20)
--- NOTE | 2020-06-21 17:13 | P.HP ---
Certification for Inpatient Patient admitted to: Observation With expected LOS: <2 Midnights Practitioner: I am a practitioner with admitting privileges, knowledge of patient current condition, hospital course, and medical plan of care. Services: Services provided to patient in accordance with Admission requirements found in Title 42 Section 412.3 of the Code of Federal Regulations Patient History Date of Service: 06/21/20 Reason for admission: Nausea and vomiting and diarrhea History of Present Illness: 65-year-old woman with a history of renal cell cancer on chemotherapy presented the emergency department with a complaint of nausea and vomiting and diarrhea. The patient received chemotherapy for 5 days ago and since then has been experiencing these symptoms. She stated she usually develops nausea and vomiting and diarrhea over the 1st 2-3 days after chemotherapy but feels that her symptoms have been protracted this time. Blood work in the emergency department suggest acute renal failure. UA does not suggest the presence of UTI. Vitals are stable. Patient is hospitalized for further management. Allergies tetracycline Allergy (Verified 10/19/16 06:03) Itching/Hives/Rash Home Medications: Sunitinib Malate [Sutent] 1 cap PO DAILY 04/27/20 - Past Medical/Surgical History Diabetic: No -: none -: Renal cancer -: Chronic back pain -: tubal ligation -: Nephrectomy - Family History Father -: Cancer Notes: Lung - Social History Alcohol use: No CD- Drugs: No Caffeine use: No Review of Systems Other: Patient denied any fever or chills. She denied any dysuria. Except as documented, all other systems reviewed and negative. Physical Examination - Physical Exam General: Alert, In no apparent distress, Obese HEENT: Mucous membr. moist/pink, EOMI Neck: Supple, JVD not distended Respiratory: Clear to auscultation bilaterally, Normal air movement Cardiovascular: Regular rate/rhythm, Normal S1 S2, Edema (Trace bilateral lower extremity edema) Gastrointestinal: Normal bowel sounds, Soft and benign, Non-distended, No tenderness Musculoskeletal: No swelling, No erythema Integumentary: No rashes, No erythema Neurological: Normal strength at 5/5 x4 extr, Cranial nerves 3-12 intact - Studies Laboratory Data (last 24 hrs) 06/21/20 14:41: WBC 4.2 L D, Hgb 13.8, Hct 39.9, Plt Count 70 L D 06/21/20 14:41: Sodium 142, Potassium 3.7, BUN 36 H, Creatinine 2.43 H, Glucose 112 H, Magnesium 2.3, Total Bilirubin 1.6 H, AST 39 H, ALT 21, Alkaline Phosphatase 64, Lipase 95 Assessment and Plan - Problems (Diagnosis) (1) Acute renal failure Current Visit: Yes Status: Acute (2) Renal cell cancer Current Visit: Yes Status: Acute (3) Chemotherapy induced nausea and vomiting Current Visit: Yes Status: Acute (4) Chemotherapy induced diarrhea Current Visit: Yes Status: Acute (5) GERD (gastroesophageal reflux disease) Onset Date: 10/21/16 Current Visit: No Status: Acute - Plan Place under observation. Hydrate with IV normal saline. Obtain renal ultrasound. Noted patient has a history of nephrectomy. Monitor renal function for improvement. Nephrology consult if no response with IV fluid. Start pre-meal Sucralfate and protonix for heartburn. - Advance Directives Does patient have a Living Will: No Does patient have a Durable POA for Healthcare: No - Code Status/Comfort Care Code Status Assessed: Yes Code Status: Full Code
[2020-06-21] MEDS ORDERED: ACETAMINOPHEN 500 MG TAB PO PRN (17:24)
[2020-06-21] MEDS ORDERED: ONDANSETRON 4 MG/2 ML VIAL IV PRN (17:24)
[2020-06-21] MEDS ORDERED: HEPARIN 5000 UNIT/ML 1 ML VIAL SQ SCH (18:00)
[2020-06-21 18:01] VITALS: BMI 35.7
[2020-06-21] MEDS: NA CHLORIDE 0.9% 1,000 ML IV SCH (18:38)
[2020-06-21] MEDS: SUCRALFATE 1GM/10ML UCUP PO SCH (21:22)
[2020-06-22] MEDS: NA CHLORIDE 0.9% 1,000 ML IV SCH ×3 (03:10→16:33)
[2020-06-22 04:03] LABS: Absolute Lymphocytes (CBC) 1.3 K/uL (0.7-4.9); Basophils % 1.2 % (0-1.3); Hematocrit 36.1 % (36.0-45.0); Lymphocytes % 29.3 % (15.3-44.8); MPV 7.7 fL (7.6-11.3); RBC Red Blood Cell Count 3.81 M/uL (3.86-4.86)
[2020-06-22 04:28] LABS: Magnesium 2.2 mg/dL (1.8-2.4); Phosphorus 2.6 mg/dL (2.5-4.9); Potassium 4.1 mmol/L (3.5-5.1)
[2020-06-22 07:46] LABS: Urine Appearance CLEAR; Urine Blood 3+ (NEG); Urine Color DK YELLOW; Urine Glucose NEGATIVE (NEG); Urine Protein 3+ (NEG)
[2020-06-22 07:51] VITALS: O2SAT 95
[2020-06-22 08:25] LABS: Urine Bilirubin NEGATIVE (NEG); Urine Microscopic Reflex ORDER UMIC
[2020-06-22] MEDS: PANTOPRAZOLE 40MG TABLET PO SCH (08:40)
[2020-06-22] MEDS: SUCRALFATE 1GM/10ML UCUP PO SCH ×4 (08:41→21:22)
[2020-06-22 08:42] LABS: Urine Amorphous Sediment TRACE /HPF (NONE SEEN); Urine Bacteria <20 /HPF (<20); Urine Culture Reflex Order NOT NEEDED
--- NOTE | 2020-06-22 11:17 | P.PN ---
Subjective Date of Service: 06/22/20 Chief Complaint: Nausea and vomiting and diarrhea Subjective: Improving (Patient is no longer having vomiting or diarrhea. However, her appetite is still poor. Oral intake is poor as well.) Physical Examination - Vital Signs Temperature: 98.2 F Blood Pressure: 148/66 Pulse: 69 Respirations: 18 Pulse Ox (%): 96 - Physical Exam General: Cooperative, Obese, Other (Slightly lethargic) HEENT: Atraumatic, Normocephalic, EOMI Neck: Supple Respiratory: Clear to auscultation bilaterally, Normal air movement Cardiovascular: No edema, Normal pulses, Regular rate/rhythm, Normal S1 S2 Gastrointestinal: Normal bowel sounds, Soft and benign, Non-distended, No tenderness Musculoskeletal: No clubbing, No swelling, No contractures, No erythema, No tenderness, No warmth Neurological: Normal speech, Sensation intact, Normal affect - Studies Laboratory Data (last 24 hrs) 06/21/20 14:41: WBC 4.2 L D, Hgb 13.8, Hct 39.9, Plt Count 70 L D 06/21/20 14:41: Sodium 142, Potassium 3.7, BUN 36 H, Creatinine 2.43 H, Glucose 112 H, Magnesium 2.3, Total Bilirubin 1.6 H, AST 39 H, ALT 21, Alkaline Phosphatase 64, Lipase 95 Assessment & Plan Physician Review Additional Text: Assessment 65-year-old female with unknown past medical history of renal cell carcinoma who presented to the hospital with nausea, vomiting and diarrhea 3 days after undergoing chemotherapy. Patient said that the symptoms are chemo- induced and this has been an ongoing occurrence since she started her treatment. Her symptoms have improved with volume repletion and anti-emetics but she is still experiencing poor oral intake. Intractable N/V Diarrhea SANDRA Renal cell carcinoma S/P Nephrectomy PLAN: Change from observation to inpatient Patient will need aggressive volume repletion due to SANDRA Continue anti-emetics I strongly encourage patient to try and improve her oral intake, currently finishing only 10% of her plate Monitor CBC, and transfuse if PLT < 20K I anticipate discharge in the next 1-2 days.
--- NOTE | 2020-06-22 11:38 | RAD REPORT ---
EXAM DESCRIPTION: CT - Abdomen Pelvis Wo Contrast - 06/22/2020 10:57 am CLINICAL HISTORY: Abdominal pain COMPARISON: December 2019 TECHNIQUE: Computed axial tomography of the abdomen and pelvis was obtained. IV and oral contrast we re not requested. All CT scans are performed using dose optimization technique as appropriate and may include automated exposure control or mA/KV adjustment according to patient size. FINDINGS: The evaluation of solid organs, vessels and bowel is limited secondary to the lack of con trast administration. Right nephrectomy No left hydronephrosis. A left renal mass is not seen The liver, spleen, pancreas and adrenals appear grossly normal. Small left pleural effusion Small amount of ascites No evidence of diverticulitis. No evidence of colitis. Small amount of ascites IMPRESSION: Small left pleural effusion Small amount of ascites Right nephrectomy.
--- NOTE | 2020-06-22 20:30 | P.CNS ---
Date of Consult: 06/22/20 Reason for Consult: SANDRA Requesting Physician: Prince Damaso Lugo Chief Complaint: Nausea and vomiting and diarrhea History of Present Illness: 65-year-old woman with a history of renal cell cancer on chemotherapy presented the emergency department with a complaint of nausea and vomiting and diarrhea. The patient received chemotherapy for 5 days ago and since then has been experiencing these symptoms. She stated she usually develops nausea and vomiting and diarrhea over the 1st 2-3 days after chemotherapy but feels that her symptoms have been protracted this time. Blood work in the emergency department suggest acute renal failure. UA does not suggest the presence of UTI. Vitals are stable. Patient is hospitalized for further management. 14:20 This 65 yrs old Female presents to ER via Ambulatory with complaints of cp Nausea/Vomiting. 14:20 The patient presents to the emergency department with nausea, with "dry heaves", cp vomiting, that is intermittent. Onset: The symptoms/episode began/occurred 4 day(s) ago. Possible causes: Patient reports history of renal cancer and history of taking oral chemo for two weeks up until Friday. Patient denies fever, vomiting of blood, denies diarrhea. 14:20 Associated signs and symptoms: Pertinent negatives: abdominal pain, constipation, cp diarrhea, fever, GI bleeding, active vomiting. Allergies tetracycline Allergy (Verified 10/19/16 06:03) Itching/Hives/Rash Home medications list reviewed: Yes Home Medications: Sunitinib Malate [Sutent] 1 cap PO DAILY 04/27/20 Amlodipine Besylate 10 mg PO DAILY 06/21/20 Cyanocobalamin (Vitamin B-12) [Vitamin B12] 3,000 mcg PO DAILY 06/21/20 - Past Medical/Surgical History Diabetic: No -: Renal cancer -: Hypertension -: Chronic back pain -: Tubal Ligation -: Right kidney removal - Family History Father Medical History: Cancer Notes: - Lung cancer - Social History Smoking Status: Unknown if ever smoked Alcohol use: No CD- Drugs: No Caffeine use: No Place of Residence: Home Review of Systems 10-point ROS is otherwise unremarkable General: Weakness, Malaise Cardiovascular: Edema Gastrointestinal: Diarrhea Neurological: Weakness Physical Examination Temp Pulse Resp BP Pulse Ox 97.1 F 76 18 159/69 H 95 06/22/20 16:00 06/22/20 16:00 06/22/20 16:00 06/22/20 16:00 06/22/20 16:00 General: In no apparent distress, Cooperative HEENT: Atraumatic Neck: Supple Respiratory: Clear to auscultation bilaterally Cardiovascular: Regular rate/rhythm, Edema Gastrointestinal: Soft and benign, Non-distended Musculoskeletal: No clubbing, No contractures Integumentary: No rashes, No cyanosis Neurological: Normal speech Blood work reviewed in the chart. Imagings Data: EXAM DESCRIPTION: US - Abdomen Exam Limited - 06/21/2020 4:21 pm CLINICAL HISTORY: nausea/vomiting COMPARISON: No comparisons FINDINGS: The gallbladder demonstrates no gallstones. No pericholecystic fluid or gallbladder wall thickening. The common bile duct is normal measuring 2 mm. The liver demonstrates no findings of intrahepatic biliary dilatation. IMPRESSION: Unremarkable examination. EXAM DESCRIPTION: CT - Abdomen Pelvis Wo Contrast - 06/22/2020 10:57 am CLINICAL HISTORY: Abdominal pain COMPARISON: December 2019 TECHNIQUE: Computed axial tomography of the abdomen and pelvis was obtained. IV and oral contrast were not requested. All CT scans are performed using dose optimization technique as appropriate and may include automated exposure control or mA/KV adjustment according to patient size. FINDINGS: The evaluation of solid organs, vessels and bowel is limited secondary to the lack of contrast administration. Right nephrectomy No left hydronephrosis. A left renal mass is not see The liver, spleen, pancreas and adrenals appear grossly normal. Small left pleural effusion Small amount of ascites No evidence of diverticulitis. No evidence of colitis. Small amount of ascites IMPRESSION: Small left pleural effusion Small amount of ascites Right nephrectomy. Conclusions/Impression: A/ SANDRA improving with IVF Right nephrectomy due renal cancer Hypocalcemia Proteinuria HTN IFG Moderate malnutrition P/ Continue current POC and Medications. Change IVF 1/2NS. Start Vitamin D3. Encourage nutrition. No NSAIDs. AM labs. Daily weight. Thank you kindly for the consultation. Case reviewed with Dr. Lugo.
[2020-06-22] MEDS ORDERED: NACHLORIDE 0.45% 1,000 ML IV SCH (21:00)
[2020-06-23 06:04] LABS: Absolute Lymphocytes (CBC) 1.2 K/uL (0.7-4.9); Basophils % 0.4 % (0-1.3); Hematocrit 33.7 % (36.0-45.0); Lymphocytes % 30.2 % (15.3-44.8); MPV 8.1 fL (7.6-11.3); RBC Red Blood Cell Count 3.61 M/uL (3.86-4.86)
[2020-06-23 06:14] LABS: Albumin 1.7 g/dL (3.4-5.0); Bilirubin Total 1.4 mg/dL (0.2-1.0); Phosphorus 1.9 mg/dL (2.5-4.9); Uric Acid 6.6 mg/dL (2.6-6.0)
--- NOTE | 2020-06-23 08:24 | P.DS ---
Admission Date: 06/21/20 Discharge Date: 06/23/20 Disposition: ROUTINE DISCHARGE Discharge Condition: GOOD Reason for Admission: Nausea and vomiting and diarrhea Brief History of Present Illness: 65-year-old woman with a history of renal cell cancer on chemotherapy presented the emergency department with a complaint of nausea and vomiting and diarrhea. The patient received chemotherapy for 5 days ago and since then has been experi encing these symptoms. She stated she usually develops nausea and vomiting and diarrhea over the 1st 2-3 days after chemotherapy but feels that her symptoms have been protracted this time. Blood work in the emergency department suggest acute renal failure. UA does not suggest the presence of UTI. Vitals are stable. Patient is hospitalized for further management. Hospital Course: Patient has done well with volume repletion. Her appetite has improved. I instructed her to follow up with her PCP or oncologist for repeat blood work as she still has some degree of kidney injury. Otherwise, she is symptomatically improved. Her appetite is near baseline. Vital Signs/Physical Exam: Temp Pulse Resp BP Pulse Ox 97.8 F 72 18 131/63 94 06/23/20 04:00 06/23/20 04:00 06/23/20 04:00 06/23/20 04:00 06/23/20 04:00 General: In no apparent distress, Cooperative, Obese HEENT: Atraumatic, Normocephalic, EOMI Neck: Supple Respiratory: Clear to auscultation bilaterally, Normal air movement Cardiovascular: No edema, Normal pulses, Regular rate/rhythm, Normal S1 S2 Gastrointestinal: Normal bowel sounds, Soft and benign, Non-distended, No tenderness Musculoskeletal: No clubbing, No swelling, No contractures, No erythema, No tenderness, No warmth Neurological: Normal speech, Sensation intact, Normal affect Laboratory Data at Discharge: WBC 3.9 K/uL (4.3-10.9) L 06/23/20 05:35 Hgb 11.9 g/dL (12.0-15.0) L 06/23/20 05:35 Hct 33.7 % (36.0-45.0) L 06/23/20 05:35 Plt Count 48 K/uL (152-406) L* 06/23/20 05:35 Sodium 143 mmol/L (136-145) 06/23/20 05:35 Potassium 4.0 mmol/L (3.5-5.1) 06/23/20 05:35 BUN 29 mg/dL (7-18) H 06/23/20 05:35 Creatinine 1.99 mg/dL (0.55-1.3) H 06/23/20 05:35 Glucose 82 mg/dL (74-106) 06/23/20 05:35 Uric Acid 6.6 mg/dL (2.6-6.0) H 06/23/20 05:35 Phosphorus 1.9 mg/dL (2.5-4.9) L 06/23/20 05:35 Magnesium 2.2 mg/dL (1.8-2.4) 06/22/20 03:33 Total Bilirubin 1.4 mg/dL (0.2-1.0) H 06/23/20 05:35 AST 38 U/L (15-37) H 06/23/20 05:35 ALT 21 U/L (12-78) 06/23/20 05:35 Alkaline Phosphatase 61 U/L (45-117) 06/23/20 05:35 Lipase 95 U/L (73-393) 06/21/20 14:41 Home Medications: Sunitinib Malate [Sutent] 1 cap PO DAILY 04/27/20 Amlodipine Besylate 10 mg PO DAILY 06/21/20 Cyanocobalamin (Vitamin B-12) [Vitamin B12] 3,000 mcg PO DAILY 06/21/20 Cholecalciferol (Vitamin D3) [Vitamin D 5,000 IU Cap*] 5,000 unit PO DAILY #30 cap 06/23/20 Pantoprazole [Protonix Tab*] 40 mg PO ACB #30 tab 06/23/20 Sucralfate [Carafate*] 10 ml PO ACHS #1 bottle 06/23/20 New Medications: Sucralfate [Carafate*] 10 ml PO ACHS #1 bottle Pantoprazole [Protonix Tab*] 40 mg PO ACB #30 tab Cholecalciferol (Vitamin D3) [Vitamin D 5,000 IU Cap*] 5,000 unit PO DAILY #30 cap Followup: Kalpesh Benjamin MD [Primary Care Provider] -
[2020-06-23] MEDS ORDERED: CYANOCOBALAMIN 1,000 MCG TAB PO SCH (09:00)
[2020-06-23] MEDS ORDERED: SUNITINIB MALATE PO SCH (09:00)
[2020-06-23] MEDS ORDERED: VITAMIN D 5,000 UNIT CAP PO SCH (09:00)
[2020-06-23] MEDS ORDERED: AMLODIPINE 10 MG TAB PO SCH (09:00)
[2020-06-23 09:32] VITALS: BP 144/63
[2020-06-23] MEDS: SUCRALFATE 1GM/10ML UCUP PO SCH (12:05)
[2020-06-23] MEDS: PANTOPRAZOLE 40MG TABLET PO SCH (12:05)
[2020-06-23 13:19] VITALS: TEMP 98.1
--- NOTE | 2020-06-23 20:28 | P.PN ---
Date of Service: 06/23/20 Vital Signs Temp Pulse Resp BP Pulse Ox 98.1 F 70 18 144/63 H 97 06/23/20 12:00 06/23/20 12:04 06/23/20 12:00 06/23/20 12:04 06/23/20 12:00 Assessment/ Plan: Nephrology CPS stable without CP or SOB. No acute events overnight. Vitals, medications, blood work and imaging reviewed in the chart. General: In no apparent distress, Cooperative HEENT: Atraumatic Neck: Supple Respiratory: Clear to auscultation bilaterally Cardiovascular: Regular rate/rhythm, Edema Gastrointestinal: Soft and benign, Non-distended Musculoskeletal: No clubbing, No contractures Integumentary: No rashes, No cyanosis Neurological: Normal speech Blood work reviewed in the chart. Imagings Data: EXAM DESCRIPTION: US - Abdomen Exam Limited - 06/21/2020 4:21 pm CLINICAL HISTORY: nausea/vomiting COMPARISON: No comparisons FINDINGS: The gallbladder demonstrates no gallstones. No pericholecystic fluid or gallbladder wall thickening. The common bile duct is normal measuring 2 mm. The liver demonstrates no findings of intrahepatic biliary dilatation. IMPRESSION: Unremarkable examination. EXAM DESCRIPTION: CT - Abdomen Pelvis Wo Contrast - 06/22/2020 10:57 am CLINICAL HISTORY: Abdominal pain COMPARISON: December 2019 TECHNIQUE: Computed axial tomography of the abdomen and pelvis was obtained. IV and oral contrast were not requested. All CT scans are performed using dose optimization technique as appropriate and may include automated exposure control or mA/KV adjustment according to patient size. FINDINGS: The evaluation of solid organs, vessels and bowel is limited s econdary to the lack of contrast administration. Right nephrectomy No left hydronephrosis. A left renal mass is not see The liver, spleen, pancreas and adrenals appear grossly normal. Small left pleural effusion Small amount of ascites No evidence of diverticulitis. No evidence of colitis. Small amount of ascites IMPRESSION: Small left pleural effusion Small amount of ascites Right nephrectomy. Conclusions/Impression: A/ SANDRA improving with IVF Right nephrectomy due renal cancer Hypocalcemia Proteinuria HTN IFG Moderate malnutrition P/ Continue current POC and Medications. Continue IVF. Continue Vitamin D3. Encourage nutrition. No NSAIDs. AM labs. Daily weight. Case discussed with Dr. Lugo
== END 2020-06-23 12:33 | disposition home or self-care (01) | DRG 683 ==
LOC: ER 13:10 → OBSVTOIN 16:55 → ERHOLD 16:55 → 2ND 17:23
PROVIDERS: ADMIT Internal Medicine; ATTEND Internal Medicine
DX: N17.9 Acute kidney failure, unspecified (principal); C64.9 Malignant neoplasm of unspecified kidney, except renal pelvis; K52.1 Toxic gastroenteritis and colitis; E44.0 Moderate protein-calorie malnutrition; G89.29 Other chronic pain; I10 Essential (primary) hypertension; K21.9 Gastro-esophageal reflux disease without esophagitis; E83.51 Hypocalcemia; E66.9 Obesity, unspecified; M54.9 Dorsalgia, unspecified; T45.1X5A Adverse effect of antineoplastic and immunosuppressive drugs, initial encounter; R73.01 Impaired fasting glucose; R80.9 Proteinuria, unspecified; R11.2 Nausea with vomiting, unspecified; Z68.35 Body mass index [BMI] 35.0-35.9, adult; Z98.51 Tubal ligation status; Z88.1 Allergy status to other antibiotic agents; Z79.899 Other long term (current) drug therapy; Z90.49 Acquired absence of other specified parts of digestive tract; Z20.828 Contact with and (suspected) exposure to other viral communicable diseases
CPT/HCPCS: 36415; 74176; 76705; 80048; 80053; 80076; 81003; 81015; 83036; 83690; 83735; 83880; 84100; 84550; 85025; 96361; 96374; 97161; 99285; J1644; J2405; J7030; J7040; U0001